=== PATIENT | female | born 1950 | race Caucasian/White ===

== ENCOUNTER → 2017-05-30 | Outpatient (CLI) | payer MEDICARE ==
[~2017-05-30] MED LIST: DEXL60CA PO; ESTR1PAT10 TD; LEVO50TA6 PO; LVT.025T PO; PANT40TA PO; PRAV10TA PO; PRV20T GT; SUCR1TAB36 PO
--- NOTE | 2017-05-31 12:35 | Diagnostic Imaging Report ---
INDICATION: Digital mammogram bilateral screening. This study was compared to prior exams of 03/25/16, 03/12/15 and 02/11/14. At this time there are no current complaints. The current study was also evaluated with a Computer Aided Detection (CAD) system. The 3D tomographic views also fail to show any evidence of malignancy. There are bilateral breast implants in place. The implants appear similar to the prior exams. There is no sign of extracapsular rupture of either implant. The fibroglandular tissue overlying the implants is heterogeneously dense. This does limit the sensitivity of this exam. When compared to the previous study there does not seem to have been any significant change. There is no primary or secondary sign of malignancy noted. The tomosynthesis images also failed to show any sign of malignancy. IMPRESSION: 1. There is no evidence of malignancy. 2. The implants appear stable when compared to the prior study. There is no sign of extracapsular rupture of either implant. ACR BI-RADS Category 1: Negative. Result letter will be mailed to the patient. Note: At least 10% of breast cancer is not imaged by mammography. Dictated by: Dictated on workstation # [id number]
== END ==
LOC: RAD 13:17
PROVIDERS: ATTEND Nurse Practitioner Family
DX: Z12.31 Encounter for screening mammogram for malignant neoplasm of breast (principal)
CPT/HCPCS: 77067

== ENCOUNTER → 2017-10-11 | Outpatient (CLI) | payer MEDICARE | LOC: CARD 10:49 | PROVIDERS: ATTEND Internal Medicine Cardiovascular Disease | DX: R55 Syncope and collapse (principal); E78.4 Other hyperlipidemia; R00.2 Palpitations | CPT/HCPCS: 93306 ==

== ENCOUNTER → 2018-04-14 | Outpatient (CLI) | payer MEDICARE | LOC: RAD 08:29 | PROVIDERS: ATTEND Nurse Practitioner Family | DX: Z12.31 Encounter for screening mammogram for malignant neoplasm of breast (principal) ==

== ENCOUNTER → 2018-06-02 | Outpatient (CLI) | payer MEDICARE ==
--- NOTE | 2018-06-02 12:50 | Diagnostic Imaging Report ---
INDICATION: Routine screening. COMPARISON: Comparison is made with prior mammograms from 05/30/2017 and 03/25/2016. TECHNIQUE: Bilateral 2D and 3D screening mammography was performed with computer-aided detection (CAD) system. FINDINGS: Scattered fibroglandular densities are identified. Bilateral breast implants are again noted. Implant contours appear to be fairly smooth. There is some calcification of the implant shells bilaterally. No definite findings to suggest extracapsular rupture are seen. The parenchymal pattern is stable. No mass or malignant appearing microcalcifications are seen. Axillae are unremarkable apart from a cardiac monitoring device in the left axilla. IMPRESSION: No mammographic features suspicious for malignancy are identified. ACR BI-RADS Category 2: Benign findings. Result letter will be mailed to the patient. Note: At least 10% of breast cancer is not imaged by mammography. Dictated by: Dictated on workstation # [id number]
== END ==
LOC: RAD 10:47
PROVIDERS: ATTEND Nurse Practitioner Family
DX: Z12.31 Encounter for screening mammogram for malignant neoplasm of breast (principal)
CPT/HCPCS: 77067

== ENCOUNTER → 2019-06-06 | Outpatient (CLI) | payer MEDICARE ==
--- NOTE | 2019-06-06 19:33 | Diagnostic Imaging Report ---
INDICATION: Routine screening. COMPARISON is made with prior mammograms from 06/02/2018 and 05/30/2017. 2D and 3D bilateral screening mammography was performed with CAD. Scattered fibroglandular densities are identified bilaterally. Bilateral breast implants are again noted. Calcifications along the implant shells is again seen. The overall parenchymal pattern is stable. No mass or malignant appearing microcalcifications are seen. Cardiac monitoring device in the left axilla is noted. IMPRESSION: BI-RADS category 2 No mammographic features suspicious for malignancy are identified. ACR BI-RADS Category 2: Benign findings. Result letter will be mailed to the patient. Note: At least 10% of breast cancer is not imaged by mammography. Dictated by: Dictated on workstation # [id number]
== END ==
LOC: RAD 10:05
PROVIDERS: ATTEND Family Medicine
DX: Z12.31 Encounter for screening mammogram for malignant neoplasm of breast (principal)
CPT/HCPCS: 77067

== ENCOUNTER 2019-12-26 05:52 | Outpatient (CLI) | payer MEDICARE ==
[~2019-12-26] VITALS: Ht 172 cm; Wt 72.7 kg
[2019-12-26] MEDS ORDERED: FLEC100T PO (10:32)
[2019-12-26] MEDS ORDERED: DILT120T3 PO (10:32)
[2019-12-26] MEDS ORDERED: LEVO50TA6 PO (10:32)
[2019-12-26] MEDS ORDERED: APIX5TAB PO (10:32)
== END 2019-12-26 10:37 | disposition home or self-care (01) ==
LOC: PREOP 05:52
PROVIDERS: ATTEND Surgery
DX: Z01.818 Encounter for other preprocedural examination (principal)

== ENCOUNTER 2020-04-08 05:45 | Outpatient (RCR) | payer MEDICARE ==
[~2020-04-08] VITALS: Ht 175.3 cm; Wt 74.5 kg
[~2020-04-08 05:45] MED LIST changes: +APIX5TAB PO; +DILT120T3 PO; +FLAX100031 PO; +FLEC100T PO
== END 2020-04-08 15:39 | disposition home or self-care (01) ==
LOC: PREOP 05:45
PROVIDERS: ATTEND Surgery
DX: Z01.818 Encounter for other preprocedural examination (principal); Z11.59 Encounter for screening for other viral diseases
CPT/HCPCS: 87635

== ENCOUNTER 2020-04-11 12:39 | Day surgery (SDC) | payer MEDICARE ==
[2020-04-11] VITALS (7 sets, daily range): BP systolic 125–160; BP diastolic 66–90
[~2020-04-11] VITALS: Ht 175.3 cm; Wt 74.5 kg
[~2020-04-11 12:39] MED LIST changes: +NS IV 500 ML 0 ML ONE
[2020-04-11] MEDS ORDERED: LACTATED RINGERS 1,000 ML IV ONE (12:47)
[2020-04-11] MEDS ORDERED: LACTATED RINGERS 1,000 ML IV STA (12:47)
--- OUTSIDE RECORDS SUMMARY | 2020-04-11 12:59 | XMS REPORT | Clinical Summary ---
Author Author [facility] Organization [facility] Address Unknown Phone Unavailable Care Team Providers Care Loft Patternmaker Name Role Phone Heidi Christy MD PCP Source Comments Some departments are not documenting in the electronic medical record. If you d o not see the information that you expected, contact Release of Information in [facility] [employer] Information Management department at [phone] for further assistan ce in locating additional records.[facility] Allergies Comments Active Allergy Reactions Severity Noted Date Ofloxacin UNKNOWN Low 10/18/2017 Medications End Date Status Medication Sig Dispensed Refills Start Date Active levothyroxine (SYNTHROID) Take 50 mcg 0 50 mcg tablet by mouth daily 30 minutes before breakfast. Active pravastatin (PRAVACHOL) Take 10 mg by 0 10 mg tablet mouth every 48 hours. Active apixaban (ELIQUIS) 5 mg Take 5 mg by 0 tablet mouth twice daily. Active KRILL OIL/OMEGA-3/DHA/EPA Take 500 mg 0 (FISH OIL WITH KRILL PO) by mouth daily. Active SACCHAROMYCES BOULARDII Take by 0 (PROBIOTIC (S.BOULARDII) mouth daily. PO) Active Flaxseed Oil 1,000 mg cap Take 1 0 capsule by mouth daily. Active flecainide (TAMBOCOR) 100 Take one 180 tablet 3 09/26/201 mg tablet tablet by 9 mouth twice daily. 03/28/2020 Discontinued (Patient's Alejandra ce) estradiol (ESTRACE) 0.01 Insert or 0 % (0.1 mg/g) vaginal Apply to cream vaginal area at bedtime daily. 03/28/2020 Discontinued (Patient's Alejandra ce) azelaic acid(+) (FINACEA) Apply 0 15 % gel topical gel topically to affected area twice daily. 03/28/2020 Discontinued (Per Provider) diltiazem CD (CARDIZEM Take one 30 capsule 11 CD) 120 mg capsule capsule by 9 mouth daily. Active Problems Problem Noted Date SVT (supraventricular tachycardia) 10/27/2017 Heart palpitations 10/18/2017 Overview: 09/2017 ambulatory cardiac monitoring: "multiple episodes PSVT (probably afib/futter) lasting up to approx 30 se conds with rates up to 174 bpm; isolated PVC's were seen: no VT; signif icant bradycardia" 10/11/17 Echo: LVEF 60-65%, grade I di astolic dysfunction, PASSP 25-30 mmHg 10/11/17 ETT Echo: "showed no evidence of exercise-induced ischemia; excellent exercise capacity; hypertensi ve response to exercise; multiple isolated PVDs; no VT Hyperlipidemia 10/18/2017 GERD (gastroesophageal reflux disease) 10/18/2017 Spinal stenosis of lumbar region 10/18/2017 Essential hypertension 10/18/2017 Hypothyroid 10/18/2017 Overview: treated with thyroid replacement therap y. TSH normal on 03/18/17 Encounters Care Team Description Date Type Specialty Lacho Johnson MD SVT; Palpitations (6 month follow up) 03/28/2020 Office Visit Cardiology Lacho Johnson MD Canceled (Office-Coordination of Patient Care) 03/28/2020 Hospital Cardiology Encounter 03/28/2020 Travel [place] Records Request (Dr. Chuy Franklin-cardiolo records) 03/27/2020 Documentation Cardiology 03/18/2020 Lacho Saunders MD 03/18/2020 Hospital Cardiology Encounter 02/18/2020 Travel Lacho Johnson MD 02/18/2020 Hospital Cardiology Encounter 01/16/2020 Travel Lacho Johnson MD 01/15/2020 Hospital Cardiology Encounter from Last 3 Months Family History Medical History Relation Name Comments Heart Disease Father Relation Name Status Comments Father Mother Social History Date Tobacco Use Types Packs/Day Years Used Never Smoker Smokeless Tobacco: Never Used Drinks/Week oz/Week Comments Alcohol Use Occasionally a glass of wine Yes Sex Assigned at Date Recorded Not on file Industry Job Start Date Occupation Not on file Not on file Not on file Travel End Travel History Travel Start No recent travel history available. Date Recorded COVID-19 Exposure Response 03/28/2020 12:06 PM CDT In the last month, have you been in contact with No / Unsure someone who was confirmed or suspected to have Coronavirus / COVID-19? Last Filed Vital Signs Reading Time Taken Comments Vital Sign 152/90 03/28/2020 1:14 PM CDT Blood Pressure 60 03/28/2020 1:14 PM CDT Pulse - - Temperature - - Respiratory Rate - - Oxygen Saturation - - Inhaled Oxygen Concentration 73.3 kg (161 lb 8.6 oz) 03/28/2020 1:14 PM CDT Weight 172.7 cm (5' 8") 03/28/2020 1:14 PM CDT Height 24.56 03/28/2020 1:14 PM CDT Body Mass Index Plan of Treatment Health Maintenance Due Date Last Done Comments MEDICARE ANNUAL WELLNESS 1950 VISIT DTAP/TDAP VACCINES (1 - 1968 Tdap) HEPATITIS C SCREENING 1968 PHYSICAL (COMPREHENSIVE) 1968 EXAM BREAST CANCER SCREENING 1990 COLORECTAL CANCER 2000 SCREENING SHINGLES RECOMBINANT 2000 VACCINE (1 of 2) OSTEOPOROSIS 12/23/2015 SCREENING/MONITORING PNEUMONIA (PPSV23) 12/23/2015 VACCINE (1 of 1 - PPSV23) INFLUENZA VACCINE 07/17/2020 08/17/2017 Implants Device Identifier Shelf Expiration Date Model / Serial / L ot Implanted Type Area Manufactur er Loop Recorder Loop Recorder Procedures Comments Procedure Name Priority Date/Time Associated Diag nosis ECG-SCAN 03/28/2020 12:00 AM CDT DEVICE EVALUATION - Routine 03/18/2020 SVT (supra ventricular REMOTE ILR 6:57 AM CDT tachycardia) (HCC) Heart palpitations DEVICE EVALUATION - Routine 02/19/2020 SVT (supra ventricular REMOTE ILR 2:52 PM CDT tachycardia) (HCC) Heart palpitations DEVICE EVALUATION - Routine 01/16/2020 SVT (supra ventricular REMOTE ILR 2:04 PM CDT tachycardia) (HCC) Heart palpitations from Last 3 Months Results * ECG-SCAN (03/28/2020 12:00 AM CDT) Narrative Performed At This result has an attachment that is n ot available. Ordered by an unspecified provider. * DEVICE EVALUATION - REMOTE ILR (03/18/2020 6:57 AM CDT) Generator [employer] OTHER OUTSIDE [employer] Intern LAB Generator Model LNQ11 OTHER OUTSIDE # LAB Generator [id number] OTHER OUTSIDE Serial # LAB Generator 10/27/17 OTHER OUTSIDE Implnat Date LAB MAURICE/EOL per transmitter OTHER OUTSIDE Indicator LAB Device Type ILR OTHER OUTSIDE LAB Wireless Yes OTHER OUTSIDE Generator LAB Device Dr.Martin Johnson OTHER OUTSIDE Implanted By LAB Device [employer] OTHER OUTSIDE [place] LAB Transmitter Compatible Known Diagnosed Yes OTHER OUTSIDE AFib LAB On Yes OTHER OUTSIDE Anticoagulation LAB Remote Monitor [id number] OTHER OUTSIDE Serial# LAB ILR Symptom 4 7.5 mins each OTHER OUTSIDE Duration LAB ILR Tachy Rate 140 OTHER OUTSIDE LAB ILR Tachy 16 OTHER OUTSIDE Duration LAB ILR Pause 3 OTHER OUTSIDE Duration LAB ILR Beltran Rate 30 OTHER OUTSIDE LAB ILR Beltran 4 OTHER OUTSIDE Duration LAB ILR AT Events 0 OTHER OUTSIDE Since Last LAB Interrogation ILR AT Lifetime 37 OTHER OUTSIDE Events as of LAB ILR AF Rate AF only OTHER OUTSIDE LAB ILR AF Duration all episodes OTHER OUTSIDE LAB ILR Current 03/18/2020 to 04/18/2020 OTHER OUTSIDE Monitoring LAB Period ILR Date of 03/18/2020 OTHER OUTSIDE Last Daily LAB Connection ILR Battery OK OTHER OUTSIDE Status LAB ILR Symptom 0 OTHER OUTSIDE Events Since LAB Last Interrogation ILR Symptom 26 OTHER OUTSIDE Lifetime Events LAB as of ILR Tachy 0 OTHER OUTSIDE Events Since LAB Last Interrogation ILR Tachy 34 OTHER OUTSIDE Lifetime Events LAB as of ILR Pause 0 OTHER OUTSIDE Events Since LAB Last Interrogation ILR Pause 0 OTHER OUTSIDE Lifetime Events LAB as of ILR Beltran 0 OTHER OUTSIDE Events Since LAB Last Interrogation ILR Beltran 0 OTHER OUTSIDE Lifetime Events LAB as of ILR AF Events 0 OTHER OUTSIDE Since Last LAB Interrogation ILR AF Lifetime 0 OTHER OUTSIDE Events as of LAB ILR Percent 0.0% OTHER OUTSIDE Time in AT/AF LAB Events Since Last Interrogation ILR Percent 0.0% OTHER OUTSIDE Time in AT/AF LAB Lifetime of Events as of ILR Presenting 03/18/2020 @ 00:04:50 shows SB OTHER OU TSIDE ECG Strip in the 50's LAB ILR Lifetime 03/18/2020 OTHER OUTSIDE Events as of LAB Datetion Specimen Narrative Performed At OTHER OUTSIDE LAB Eliquis [03/18/2020 6:59:32 AM - JONATHAN HANCOCK] Presenting EGM on 03/18/2020 @ 00:04:50 s kassi SB in the 50's. Summary report received and reviewed. N o new event to report. Please see scanned data sheets for furt her review. Results routed to Dr. Johnson for signatu re and review. Performing Organization Address City/State/Zipcode Ph one Number OTHER OUTSIDE LAB * DEVICE EVALUATION - REMOTE ILR (02/19/2020 2:52 PM CDT) Generator [employer] OTHER OUTSIDE [employer] Intern LAB Generator Model LNQ11 OTHER OUTSIDE # LAB Generator [id number] OTHER OUTSIDE Serial # LAB Generator 10/27/17 OTHER OUTSIDE Implnat Date LAB MAURICE/EOL per transmitter OTHER OUTSIDE Indicator LAB Device Type ILR OTHER OUTSIDE LAB Wireless Yes OTHER OUTSIDE Generator LAB Device Dr.Martin Johnson OTHER OUTSIDE Implanted By LAB Device [employer] OTHER OUTSIDE [place] LAB Transmitter Compatible Known Diagnosed Yes OTHER OUTSIDE AFib LAB On Yes OTHER OUTSIDE Anticoagulation LAB Remote Monitor [id number] OTHER OUTSIDE Serial# LAB ILR Symptom 4 7.5 mins each OTHER OUTSIDE Duration LAB ILR Tachy Rate 140 OTHER OUTSIDE LAB ILR Tachy 16 OTHER OUTSIDE Duration LAB ILR Pause 3 OTHER OUTSIDE Duration LAB ILR Beltran Rate 30 OTHER OUTSIDE LAB ILR Beltran 4 OTHER OUTSIDE Duration LAB ILR AT Events 0 OTHER OUTSIDE Since Last LAB Interrogation ILR AT Lifetime 37 OTHER OUTSIDE Events as of LAB ILR AF Rate AF only OTHER OUTSIDE LAB ILR AF Duration all episodes OTHER OUTSIDE LAB ILR Current 02/16/2020 to 03/18/2020 OTHER OUTSIDE Monitoring LAB Period ILR Date of 02/19/2020 OTHER OUTSIDE Last Daily LAB Connection ILR Battery OK OTHER OUTSIDE Status LAB ILR Symptom 0 OTHER OUTSIDE Events Since LAB Last Interrogation ILR Symptom 26 OTHER OUTSIDE Lifetime Events LAB as of ILR Tachy 0 OTHER OUTSIDE Events Since LAB Last Interrogation ILR Tachy 34 OTHER OUTSIDE Lifetime Events LAB as of ILR Pause 0 OTHER OUTSIDE Events Since LAB Last Interrogation ILR Pause 0 OTHER OUTSIDE Lifetime Events LAB as of ILR Beltran 0 OTHER OUTSIDE Events Since LAB Last Interrogation ILR Beltran 0 OTHER OUTSIDE Lifetime Events LAB as of ILR AF Events 0 OTHER OUTSIDE Since Last LAB Interrogation ILR AF Lifetime 0 OTHER OUTSIDE Events as of LAB ILR Percent 0.0% OTHER OUTSIDE Time in AT/AF LAB Events Since Last Interrogation ILR Percent 0.0% OTHER OUTSIDE Time in AT/AF LAB Lifetime of Events as of ILR Presenting 02/19/2020 @ 00:04:50 shows OTHER OUTSI DE ECG Strip sinus arrhythmia with V rates LAB between 50's-60's ILR Lifetime 02/19/2020 OTHER OUTSIDE Events as of LAB Datetion Specimen Narrative Performed At OTHER OUTSIDE LAB Eliquis [02/19/2020 2:55:49 PM - HANCOCKJONATHAN] Presenting EGM on 02/19/2020 @ 00:04:50 s hows sinus arrhythmia with V rates between 50's-60's. Summary report received and reviewed. N o new event to report. Please see scanned data sheets for deet her review. Results routed to Dr. Johnson for signatu re and review. Performing Organization Address City/State/Zipcode Ph one Number OTHER OUTSIDE LAB * DEVICE EVALUATION - REMOTE ILR (01/16/2020 2:04 PM CDT) Generator [employer] OTHER OUTSIDE Consult[employer] Intern LAB Generator Model LNQ11 OTHER OUTSIDE # LAB Generator [id number] OTHER OUTSIDE Serial # LAB Generator 10/27/17 OTHER OUTSIDE Implnat Date LAB MAURICE/EOL per transmitter OTHER OUTSIDE Indicator LAB Device Type ILR OTHER OUTSIDE LAB Wireless Yes OTHER OUTSIDE Generator LAB Device Dr.Martin Johnson OTHER OUTSIDE Implanted By LAB Device [employer] OTHER OUTSIDE [place] LAB Transmitter Compatible Known Diagnosed Yes OTHER OUTSIDE AFib LAB On Yes OTHER OUTSIDE Anticoagulation LAB Remote Monitor [id number] OTHER OUTSIDE Serial# LAB ILR Symptom 4 7.5 mins each OTHER OUTSIDE Duration LAB ILR Tachy Rate 140 OTHER OUTSIDE LAB ILR Tachy 16 OTHER OUTSIDE Duration LAB ILR Pause 3 OTHER OUTSIDE Duration LAB ILR Beltran Rate 30 OTHER OUTSIDE LAB ILR Beltran 4 OTHER OUTSIDE Duration LAB ILR AT Events 0 OTHER OUTSIDE Since Last LAB Interrogation ILR AT Lifetime 37 OTHER OUTSIDE Events as of LAB ILR AF Rate AF only OTHER OUTSIDE LAB ILR AF Duration all episodes OTHER OUTSIDE LAB ILR Current 01/15/20-02/16/20 OTHER OUTSIDE Monitoring LAB Period ILR Date of 01/16/20 OTHER OUTSIDE Last Daily LAB Connection ILR Battery ok OTHER OUTSIDE Status LAB ILR Symptom 0 OTHER OUTSIDE Events Since LAB Last Interrogation ILR Symptom 26 OTHER OUTSIDE Lifetime Events LAB as of ILR Tachy 0 OTHER OUTSIDE Events Since LAB Last Interrogation ILR Tachy 34 OTHER OUTSIDE Lifetime Events LAB as of ILR Pause 0 OTHER OUTSIDE Events Since LAB Last Interrogation ILR Pause 0 OTHER OUTSIDE Lifetime Events LAB as of ILR Beltran 0 OTHER OUTSIDE Events Since LAB Last Interrogation ILR Beltran 0 OTHER OUTSIDE Lifetime Events LAB as of ILR AF Events 0 OTHER OUTSIDE Since Last LAB Interrogation ILR AF Lifetime 0 OTHER OUTSIDE Events as of LAB ILR Presenting 01/16/20 @ 0004 SR 60 bpm OTHER OUTSIDE ECG Strip LAB ILR Lifetime 01/16/20 OTHER OUTSIDE Events as of LAB Datetion Specimen Narrative Performed At OTHER OUTSIDE LAB Eliquis [01/16/2020 2:05:29 PM - ANU JOAQUIN] Presenting EGM: 01/16/20 @ 0004 SR 60 bpm . Summary report received and reviewed, no new events to report, will continue to monitor. Results routed to Dr. Johnson for signatu re and review. __ Performing Organization Address City/State/Zipcode Ph one Number OTHER OUTSIDE LAB from Last 3 Months Insurance Type Payer Benefit Subscriber ID Effective Phone Address Plan / Dates Group Medicare MEDICARE MEDICARE xxxxxxxxxxx 2015-P PART A AND resent B Medicare BCBS JAMIE BCBS xxxxxxxxxxxx 2017-P SUPPLEMENT resent [phone] Advance Directives Patient Soda Clerk Explanation Type Date Recorded Advance 07/23/2014 9:47 AM Directive/DPOA
--- OUTSIDE RECORDS SUMMARY | 2020-04-11 12:59 | XMS REPORT | Encounter Summary ---
Author Author [facility] Organization [facility] Address Unknown Phone Unavailable Care Team Providers Care Cnc Field Service Engineer Name Role Phone Heidi Christy MD PCP Encounter Details Care Team Description Date Type Department 03/28/2020 Travel Social History Date Tobacco Use Types Packs/Day [...] or suspected to have Coronavirus / COVID-19? documented as of this encounter Plan of Treatment Not on filedocumented as of this encounter Visit Diagnoses Not on filedocumented in this encounter
--- OUTSIDE RECORDS SUMMARY | 2020-04-11 12:59 | XMS REPORT | Encounter Summary ---
Author Author [facility] Organization [facility] Address Unknown Phone Unavailable Care Team Providers Care Stencil Printer Name Role Phone Heidi Christy MD PCP Encounter Details Care Team Description Date Type Department Lacho Johnson MD [address] [facility] [place] [address] [phone] 03/18/2020 [facility] cine Encounter Remote Device Check [phone] Social History Date Tobacco Use Types Packs/Day [...] history available. Date Recorded COVID-19 Exposure Response 03/18/2020 6:56 AM CDT In the last month, have you been in contact with Matilde banner to assess someone who was confirmed or suspected to have Coronavirus / COVID-19? documented as of this encounter Medications at Time of Discharge Start Date End Date Medication Sig Dispensed Refills apixaban (ELIQUIS) 5 mg Take 5 mg by 0 tablet mouth twice daily. Flaxseed Oil 1,000 mg cap Take 1 0 capsule by mouth daily. 09/26/2019 flecainide (TAMBOCOR) 100 Take one 180 tablet 3 mg tablet tablet by mouth twice daily. KRILL OIL/OMEGA-3/DHA/EPA Take 500 mg 0 (FISH OIL WITH KRILL PO) by mouth daily. levothyroxine (SYNTHROID) Take 50 mcg 0 50 mcg tablet by mouth daily 30 minutes before breakfast. pravastatin (PRAVACHOL) Take 10 mg by 0 10 mg tablet mouth every 48 hours. SACCHAROMYCES BOULARDII Take by 0 (PROBIOTIC (S.BOULARDII) mouth daily. PO) 03/28/2020 azelaic acid(+) (FINACEA) Apply 0 15 % gel topical gel topically to affected area twice daily. 09/26/2019 03/28/2020 diltiazem CD (CARDIZEM Take one 30 capsule 11 CD) 120 mg capsule capsule by mouth daily. 03/28/2020 estradiol (ESTRACE) 0.01 Insert or 0 % (0.1 mg/g) vaginal Apply to cream vaginal area at bedtime daily. documented as of this encounter Plan of Treatment Not on filedocumented as of this encounter Procedures Comments Procedure Name Priority Date/Time Associated Diag nosis DEVICE EVALUATION - Routine 03/18/2020 SVT (supra ventricular REMOTE ILR 6:57 AM CDT tachycardia) (HCC) Heart palpitations documented in this encounter Results * DEVICE EVALUATION - REMOTE ILR (03/18/2020 6:57 AM CDT) [facility] Signature Generator [place] OTHER OUTSIDE Wash Tub Machine Operator LAB Generator Model LNQ11 OTHER OUTSIDE # LAB Generator [id number] OTHER OUTSIDE Serial # LAB Generator 10/27/17 OTHER OUTSIDE Implnat Date LAB MARUICE/EOL per transmitter OTHER OUTSIDE Indicator LAB Device Type ILR OTHER OUTSIDE LAB Wireless Yes OTHER OUTSIDE Generator LAB Device Dr.Martin Johnson OTHER OUTSIDE Implanted By LAB Device [employer] OTHER OUTSIDE [place] LAB Transmitter Compatible Known Diagnosed Yes OTHER OUTSIDE AFib LAB On Yes OTHER OUTSIDE Anticoagulation LAB Remote Monitor [id number] OTHER OUTSIDE Serial# LAB ILR Symptom 4 [...] Presenting EGM on 03/18/2020 @ 00:04:50 s hows SB in the . Summary report received and reviewed. N o new event to report. Please see scanned data sheets for marcel moore review. Results routed to Dr. Johnson for signatu re and review. Performing Organization Address City/State/Zipcode Ph one Number OTHER OUTSIDE LAB documented in this encounter Visit Diagnoses Diagnosis SVT (supraventricular tachycardia) (HCC ) Other specified cardiac dysrhythmias Heart palpitations Palpitations documented in this encounter
--- OUTSIDE RECORDS SUMMARY | 2020-04-11 12:59 | XMS REPORT | Encounter Summary ---
Author Author [facility] Organization [facility] Address Unknown Phone Unavailable Care Team Providers Care Heel Painter Name Role Phone Heidi Christy MD PCP Encounter Details Care Team Description Date Type Department Lacho Johnson MD [address] [facility] [place] [address] [phone] Canceled (Office-Coordination of Patient Care) 03/28/2020 [facility] [address] [place] [address] Social History Date Tobacco Use Types Packs/Day [...] by 0 (PROBIOTIC (S.BOULARDII) mouth daily. PO) documented as of this encounter Plan of Treatment Order Schedule Name Type Priority Associated Diag noses 1 Occurrences starting 03/28/2020 until 03/28/2020 DEVICE EVALUATION - ILR Heart Rhythm Routine SVT (s upraventricular Management tachycardia) (HCC) Paroxysmal atrial fibrillation (HCC) documented as of this encounter Visit Diagnoses Diagnosis SVT (supraventricular tachycardia) (HCC ) Other specified cardiac dysrhythmias Paroxysmal atrial fibrillation (HCC) Atrial fibrillation documented in this encounter
--- OUTSIDE RECORDS SUMMARY | 2020-04-11 12:59 | XMS REPORT | Encounter Summary ---
Author Author [facility] Organization [facility] Address Unknown Phone Unavailable Care Team Providers Care Training And Development Specialist Name Role Phone Heidi Christy MD PCP Reason for Visit * Reason Comments SVT Palpitations 6 month follow up * Consult, Test & Treat (Routine) Referred By Contact Referred To Contact Status Reason Specialty Diagnoses / Procedures Lacho Johnson MD [address] [address] New Request Procedures REQUEST FOR CARDIOLOGY APPOINTMENT Encounter Details Care Team Description Date Type Department Lacho Johnson MD 4000 [facility] [place], [place] [id number] SVT; Palpitations (6 month follow up) 03/28/2020 Office Visit [facility] [id number] [place] [address] [address] [place], [place] [address] Social History Date Tobacco Use Types Packs/Day [...] / COVID-19? documented as of this encounter Last Filed Vital Signs Reading Time Taken [...] 03/28/2020 1:14 PM CDT Body Mass Index documented in this encounter Patient Instructions * Patient Instructions* Alexander Damian, PANTERA - 03/28/2020 1:00 PM CDT Please schedule an appointment with Dr. Johnson in 6 months. To schedule an appointment call [phone]. STOP taking Diltiazem. Please See Dr. Christy if your feeling of dragginess does not improve. Please follow up with Dr. Franklin for results of stress test and to follow up reg arding A-Fib and anticoagulation. --Check your BP (Blood Pressure) daily and you may vary the time of day you chec k it. Monitor your blood pressure regularly Consider obtaining an automatic home blood pressure cuff if you don't already oswald ve one. Try to follow a low salt diet. If you smoke, make an honest effort to quit. Exercise helps with your blood pressure. Try to get at least 30 minutes of mode rate intensity exercise at least 4 days a week. Your desired BP is with the top # less than 135 and bottom # less than 85. Call our office or your PCP if your blood pressure remains at or above the danita ed measurement consistently. If you have questions about your blood pressure readings, please contact the off ice. -- Since you are on anticoagulation, monitor for any signs or symptoms of bleedi ng, including blood in the stool or urine, etc and to contact your Primary Care Physician if any occurs. In order to provide you the best care possible we ask that you follow up as shantel cummings: For non-urgent questions please contact us through your [employer] account. For all medication refills please contact your pharmacy or send a request candi Ortiz. For all questions that may need to be addressed urgently please call the nursing triage voicemail at [phone] Tuesday - Tuesday 8-5 only. Please leave a detai led message with your name, date of , and reason for your call. Please allow ~ 10 business days for the results of any testing to be reviewed. Anamaria torre call our office if you have not heard from a nurse within this time frame. documented in this encounter Progress Notes * Lacho Johnson MD - 03/28/2020 1:00 PM CDT Date of Service: 03/28/2020 Cherelle Lucio is a 69 y.o. female. HPI I had the pleasure of seeing your patient Cherelle Lucio in the [facility] as a part of the [facility] [place] office today for follow up regarding her Palpitations and Lightheadedness/Near Syncope and he r Medtronic LinQ Implantable Monitor device. She is typically followed and was referred by my friend and colleague, Dr. Willy keen, her primary title clerk automobile. Ms. Lucio is an exceptionally pleasant 69 y.o. Female. In the past, she has been accompanied by her equally pleasant spouse, but not today. Of Note--her is an estate attorney. The past medical history and data below has been reviewed and updated by me wi th new events for today's visit. Her PMHx briefly includes:Near Syncope; ELR documenting SVT Likely Atrial Tachycardia, PVCs and PACs (per Dr. Franklin); Increasing PVCs from exercise duri ng Exercise Stress Echocardiogram; Medtronic Reveal LinQ Implantable Looping Mon itor (10/27/17); Normal LV Function with EF 60-65% by Echo (10/11/17); Negative E xercise Stress Echocardiogram (10/13/17); Hypothyroidism; Hyperlipidemia; GERD Shehas a [id number] score of 2:Female; Age DETAILED UPDATED PMHx: -- 08/2017: Per my phone conversation with Dr. Franklin,She is a 66-year-old female that he states has had some atrial fibrillation,? SVT, PVCs, and sympto ms of near syncope not necessarily correlating with her arrhythmias. Herarrhythmias were detected by Ziopatch monitoring. She apparently did not have symptoms of near syncope during that 2 week period. For her documented atrial fibrillation he initiated her on a beta-celestine and El iquis. She has undergone a stress echocardiogram with Dr. Franklin apparently which was n egative. He did note that she had some PVCs during stress testing. He did no t have the data available at the time to say whether they were occurring preexer cise, during exercise, or post exercise but he did recall that she did NOT have any VT. With normal LVEF and NO VT,he did not feel that pursuing a cardiac c ath was warranted at least at this time. Based on all the above, he referred her for EP consultation-->occured in 10/2017. He also considered implantation of a [employer] LinQ Implantable Monitor device. However she has had bilateral breast implantation. He had concerns regarding u tilizing the [employer] implantable monitor since it has a long antenna. He sta radha he has been implanting themalong the lateral edge of the sternum. He has asked us to evaluate this issue for possible ILR implantation and potenti ally pursue implantation onthe day of her office visit. -- 09/14/17-09/28/17: ZioPatch by Dr. Franklin: 5 pt triggered events, 2 diary e ntry events, predominant NSR, Avg 71, Min 50 bpm, Max SR 143 bpm, diary entry in cluded skipped/irregly beats fluttering/racing which correlated with NSR and a r are PVC. However, 5 pt triggered events without symptoms reported. One episode w ith 8 beats of narrow complex tachycardia with P wave prior to QRS, second episo de of 13 beats of the same, and third episode of 5 beats and two episodes of NSR , CL of NCT slightly variable but approximately 400-440 ms. Also, a 35 sec episo de of SVT and 16 sec episode with P waves before QRS or long-RP and 1 episode of EAR/EAT with long SD interval at 85-116 bpm. No Sxs correlating with longer epi sodes. No symptoms of lightheadedness, near syncope during two week monitoring p eriod. Rare PAC and PVC present and ASxic. -- 10/27/17: Initial EP Consultation:Pt with near syncope/lightheadedness, AT ACH/EAR as well as an ELR documenting SVT, PVCs and PACs. -- 10/27/17:We proceeded withMedtronic Reveal LinQ Implantable Looping Alondra tor implantationwith continued Beta-celestine and anticoagulation -- 12/15/17:Flecainide 50 mg BID initiatedfor LinQPatient activated sympto m events of palpitations and ATACH -- 12/19/17: Pt complained of fatigue and was instructed to decrease Toprol from 25 mg daily to 12.5 mg daily -- 01/26/18: OV (Dr. Johnson): We stopped Toprol given her symptoms of fatigue an d low BP and she was to assess her response. Continued Flecainide. -- 11/20/18: OV (Dr. Johnson): Patient was to visit with Dr. Franklin regarding anti coagulation. -- 03/05/19: Remote transmission of atrial tachycardia, patient considered swit manju to Multaq and further consider an ablation-=-> prompting OV. -- 03/29/19: OV (Dr. Johnson): Discussed options including Ablation, changing Flec ainide to Multaq, etc. Patient did NOT wish to make any changesremained on F lecainide. Also assumed management of remote device monitoring. Patient was to keep strict log of activities. -- 09/26/19: OV (Dr. Johnson): Patient reported occasionally feeling a skipped be at/flutter. Given documented episodes of 140-150 bpm on monitor, initiated Dilti azem 120 mg/d. Based on documented tachycardic events of ILR and her report of n ot being very active, Diltiazem initiated as those events may have been atrial t achycardia. However, most episodes of ATACH have had sudden onset and terminatio n. She STATES she has had no recurrent palpitations or tachypalpitations. She has b een taking the Diltiazem and Flecainide. She says she has been feeling "down a n otch". She says she feels like she is "draggy". She says she has not been checking her blood pressure at home. She feels as though her "feet are darker". She says next month she is having her thyroid levels reassessed. Her PMD follows her lipids. She denies any bleeding issues-blood in the urine, blood in the stool, toleratin g anticoagulation without obvious issue. She denies any chest discomfort, shortness of breath, palpitations, lightheadedn ess, near syncope or syncope, PND or orthopnea. FHx, SHx and ROS documented and I have reviewed, with some pertinent features to include: +FHx of premature CAD. She is a Non-Smoker. Most pertinent ROS is in cluded/discussed throughout the note, e.g. HPI and A/P. ASSESSMENT AND PLAN: --Documented Narrow Complex Long RP Tachycardia via ILR--Sinus Tach Versus A. tach -- Near Syncope--without recent recurrence -- Atrial Tachycardia and Ectopic Atrial Rhythm -- ELR documenting Atrial Tachycardia, PVCs and PACs -- Paroxysmal Atrial Fibrillation-per report by Dr. Franklin -- Anticoagulation -- [employer] Reveal LinQ Implantable Looping Monitor (10/27/17) -- Normal LV Function with EF 60-65% by Echo (10/11/17) -- Negative Exercise Stress Echocardiogram (10/13/17) -- Hypothyroidism-normal TFTs (09/2017)on Synthroid -- Hyperlipidemia -- GERD Ms. Lucio is doing exceptionally well from the arrhythmia standpoint. She has had no recurrent atrial arrhythmias. She has remained on flecainide and dil tiazem. As you may recall we initiated the diltiazem since at her last office visit her device documented some tachycardic events in the 150 to 160 bpm range. There wa s no sudden onset or termination. I was suspicious more for a sinus tachycardia as opposed to an atrial tachycardia since her prior episodes of atrial tachycar damaris have had a sudden onset and termination. However she felt strongly that she had not been active enough to create a heart rate of 150 to 160 bpm. Therefore in the event that these were episodes of atri al tachycardia we initiated diltiazem in addition to the flecainide to suppress any recurrent events. Today on diltiazem she states that although she feels it has helped she still fe els a little "draggy". I informed her that I am not convinced that is the dilti azem causing it since she does not have significant bradycardia arrhythmias. Ho arvin given the indication for initiation of the diltiazem as described above I thought it was reasonable to stop the diltiazem and see how she did. We discussed if her symptoms of feeling draggy did not improve then she needed t o follow-up with her PMD for another etiology, i.e. check her thyroid, etc. If her symptoms did improve then we know that this is a potential issue with dil tiazem for her and if she had recurrent arrhythmias we would consider increasing her flecainide or if necessary reinitiating the diltiazem. Since she had signi ficant issues with metoprolol that would not be an option in the future. She is on anticoagulation for a history of paroxysmal atrial fibrillation. I do not have any documentation of that. I have documentation of her atrial tachycard ia only. However Dr. Franklin per history has reported her atial fibrillation in t he past. I have asked her to revisit with him to confirm that she has had atrial fibrillation in particular regarding anticoagulation. Since over the last year at least that I have been following her device, she has had no documented AFIB. If he is unsure regarding prior AFIB, or if there is a question, then I would err on the side of continued anticoagulation at this time. I asked her to follow-up with Dr. Franklin for stress imaging. We discussed the risk of being on Flecainide if she has or develops a cardiomyop athy, LV dysfunction, or obstructive CAD and/or prior SD. That is why we recomm end annual to every few years stress imaging. If any of those develop, then of course, we would discontinue Flecainide immediately. Her ILR is still functioning well. PLAN: -- We will stop Diltiazem. -- If "dragginess" does not improve off Diltiazem, she will visit with PMD. -- She will revisit regarding atrial fibrillation and anticoagulation with Dr. Malina roach. -- She will discuss a stress test with Dr. Franklin. -- I have asked her to Check her BP (Blood Pressure) daily and vary the time of day she checks it. -- We discussed that exercise helps with her blood pressure and she should try t o get at least 30 minutes of moderate intensity exercise at least 4 days a week. -- We discussed that her desired BP is less than 135 and less than 85. -- Since she is on anticoagulation, I have asked her to monitor for any signs or symptoms of bleeding, including blood in the stool or urine, etc and to contact her PMD if any occurs. Ms. Lucio was educated regarding plan of care. She was instructed to call o ur office with any questions or concerns, as well as to notify us of any new or worsening symptoms. She verbalized understanding. I appreciate the opportunity to participate in the care of your patient. Please do not hesitate to contact me directly if you have any questions or furth er insights into her care. I have scheduled her follow-up with me in 6 month(s) . Vitals: 03/28/20 1314 Weight: 73.3 kg (161 lb 8.6 oz) Height: 1.727 m (5' 8") PainSc: Zero Body mass index is 24.56 kg/m. Past Medical History Patient Active Problem List Diagnosis Date Noted SVT (supraventricular tachycardia) (HCC) 10/27/2017 Heart palpitations 10/18/201709/2017 ambulatory cardiac monitoring: "multiple episodes PSVT (probably afib /futter) lasting up to approx 30 seconds with rates up to 174 bpm; isolated PVC's were seen: no VT; significant bradycardia" 10/11/17 Echo: LVEF 60-65%, grade I diastolic dysfunction, PASSP 25-30 mmHg 10/11/17 ETT Echo: "showed no evidence of exercise-induced ischemia; excellent exercise capacity; hypertensive response to exercise; multiple isolated PVDs; no VT Hyperlipidemia 10/18/2017 GERD (gastroesophageal reflux disease) 10/18/2017 Spinal stenosis of lumbar region 10/18/2017 Essential hypertension 10/18/2017 Hypothyroid 10/18/2017 treated with thyroid replacement therapy. TSH normal on 03/18/17 Review of Systems Constitution: Positive for malaise/fatigue. HENT: Negative. Eyes: Negative. Cardiovascular: Negative. Respiratory: Negative. Endocrine: Negative. Hematologic/Lymphatic: Negative. Skin: Positive for color change. Musculoskeletal: Negative. Gastrointestinal: Negative. Genitourinary: Negative. Neurological: Negative. Psychiatric/Behavioral: Negative. Allergic/Immunologic: Negative. Physical Exam Constitutional: She is in no acute distress, resting comfortably. Skin/Integument: Warm and dry. Eyes: PERRL, sclera are non-icteric and no xanthelasmas noted. ENT: Hearing is intact, Oropharynx is clear and moist. Heme/Lym/Immun: Supple neck, without thyromegaly. Respiratory-Pulmonary/Chest: Effort normal and breath sounds normal. No respira tory distress or accessory muscle use. No obvious tracheal deviation. Clear to auscultation bilaterally. Cardiovascular: No evidence of increased jugular venous pressure, carotids are 2+/4+ equal bilaterally, without obvious bruit. Regular rhythm, S1, S2. I do n ot appreciate any significant murmur today. No heaves, thrills or rubs. Musc/Skeletal-Extremities: Without significant peripheral edema. With what appe ars to be full ROM. PT pulses 2+/4+ Device Site: Is in her anterior chest region and well-healed. Neuro: Patient is alert and oriented to person, place, and time. Psych: Patient does not appear anxious, she appears appropriate, with normal no n-pressured speech and what appears to be appropriate judgement Cardiovascular Studies ECG today documents sinus rhythm at 60 bpm with IVCD, and mild nonspecific ST-T changes diffusely. Hept[employer] Reveal LinQ Implantable Looping Monitor Full device check performed wi reprogramming which I have extensively reviewed. Changes, if done, as discuss ed below and is detailed in other dictation/note. Device check demonstrates no recurrent symptom activated, auto detected tachycardia, or bradycardia arrhythmi c events since August 2019. Problems Addressed Today No diagnosis found. Current Medications (including today's revisions) apixaban (ELIQUIS) 5 mg tablet Take 5 mg by mouth twice daily. diltiazem CD (CARDIZEM CD) 120 mg capsule Take one capsule by mouth daily. Flaxseed Oil 1,000 mg cap Take 1 capsule by mouth daily. flecainide (TAMBOCOR) 100 mg tablet Take one tablet by mouth twice daily. KRILL OIL/OMEGA-3/DHA/EPA (FISH OIL WITH KRILL PO) Take 500 mg by mouth mireille y. levothyroxine (SYNTHROID) 50 mcg tablet Take 50 mcg by mouth daily 30 minute s before breakfast. pravastatin (PRAVACHOL) 10 mg tablet Take 10 mg by mouth every 48 hours. SACCHAROMYCES BOULARDII (PROBIOTIC (S.BOULARDII) PO) Take by mouth daily. documented in this encounter Miscellaneous Notes * Addendum Note - John Espana MA - 03/28/2020 1:00 PM CDT Addended by: JOHN ESPANA on: 03/28/2020 02:58 PM Modules accepted: Orders documented in this encounter Plan of Treatment Order Schedule Name Type Priority Associated Diag noses Expected: 09/27/2020, Expires: 1 DEVICE EVALUATION - ILR Heart Rhythm Routine SVT (s upraventricular Management tachycardia) ([facility]) Expected: 03/28/2020, Expires: 1 DEVICE EVALUATION - Heart Rhythm Routine SVT (supra ventricular REMOTE ILR Management tachycardia) ([facility]) Ordered: 03/28/2020 ECG 12-LEAD ECG Routine SVT (supraventr icular tachycardia) ([facility]) documented as of this encounter Procedures Comments Procedure Name Priority Date/Time Associated Diag nosis ECG-SCAN 03/28/2020 12:00 AM CDT documented in this encounter Results * ECG-SCAN (03/28/2020 12:00 AM CDT) Narrative Performed At This result has an attachment that is n ot available. Ordered by an unspecified provider. documented in this encounter Visit Diagnoses Diagnosis SVT (supraventricular tachycardia) ([facility] ) Other specified cardiac dysrhythmias documented in this encounter
--- OUTSIDE RECORDS SUMMARY | 2020-04-11 12:59 | XMS REPORT | Encounter Summary ---
Author Author [facility] Organization [facility] Address Unknown Phone Unavailable Care Team Providers Care [employer] Principal Name Role Phone Heidi Christy MD PCP Encounter Details Care Team Description Date Type Department 03/18/2020 Travel Social History Date Tobacco Use Types [...] have you been in contact with Matilde ble to assess someone who was confirmed or suspected to have Coronavirus / COVID-19? documented as of this encounter Plan of Treatment Not on filedocumented as of this encounter Visit Diagnoses Not on filedocumented in this encounter
--- OUTSIDE RECORDS SUMMARY | 2020-04-11 12:59 | XMS REPORT | Encounter Summary ---
Author Author [facility] Organization [facility] Address Unknown Phone Unavailable Care Team Providers Care Drum Handler Name Role Phone Heidi Christy MD PCP Encounter Details Care Team Description Date Type Department [facility]acho [facility] MD [address] [facility] [place] [address] [phone] 02/18/2020 [facility] Cardiovascular [facility] cine Encounter Remote Device Check [phone] Social History Date Tobacco Use Types Packs/Day [...] history available. Date Recorded COVID-19 Exposure Response 02/18/2020 1:13 PM CDT In the last month, have you been in contact with Matilde [facility] to assess someone who was confirmed or [...] Associated Diag nosis DEVICE EVALUATION - Routine 02/19/2020 SVT (supra ventricular REMOTE ILR 2:52 PM CDT tachycardia) (HCC) Heart palpitations documented in this encounter Results * DEVICE EVALUATION - REMOTE ILR (02/19/2020 2:52 PM CDT) [facility] Signature Generator [employer] OTHER OUTSIDE Medical Charge Entry Specialist LAB Generator Model [id number] OTHER OUTSIDE # LAB Generator [id number] OTHER OUTSIDE Serial # LAB Generator 10/27/17 OTHER OUTSIDE Implnat Date LAB MAURICE/EOL per transmitter OTHER OUTSIDE Indicator LAB Device Type ILR OTHER OUTSIDE LAB Wireless Yes OTHER OUTSIDE Generator LAB Device Dr.Martin Johnson OTHER OUTSIDE Implanted By LAB Device [employer] OTHER OUTSIDE [employer] LAB Transmitter Compatible Known Diagnosed Yes OTHER OUTSIDE AFib LAB On Yes OTHER OUTSIDE Anticoagulation LAB Remote Monitor [id number] OTHER OUTSIDE Serial# LAB ILR Symptom 4 [...] OUTSIDE LAB Eliquis [02/19/2020 2:55:49 PM - JONATHAN HANCOCK] Presenting EGM on 02/19/2020 @ 00:04:50 s hows sinus arrhythmia with V rates between 50's-60's. Summary report received and reviewed. N o new event to report. Please see scanned data sheets for marcel her review. Results routed to Dr. Johnson for signatu re and review. Performing Organization Address City/State/Zipcode Ph one Number OTHER OUTSIDE LAB documented in this encounter Visit Diagnoses Diagnosis SVT (supraventricular tachycardia) (HCC ) Other specified cardiac dysrhythmias Heart palpitations Palpitations documented in this encounter
--- OUTSIDE RECORDS SUMMARY | 2020-04-11 12:59 | XMS REPORT | Encounter Summary ---
Author Author [facility] Organization [facility] Address Unknown Phone Unavailable Care Team Providers Care Wool Sacker Name Role Phone Heidi Christy MD PCP Encounter Details Care Team Description Date Type Department 02/18/2020 Travel Social History Date Tobacco Use Types [...]
--- OUTSIDE RECORDS SUMMARY | 2020-04-11 12:59 | XMS REPORT | Encounter Summary ---
Author Author [facility] Organization [facility] Address Unknown Phone Unavailable Care Team Providers Care Washerette Machine Operator Name Role Phone Heidi Christy MD PCP Encounter Details Care Team Description Date Type Department 01/16/2020 Travel Social History Date Tobacco Use Types [...] history available. Date Recorded COVID-19 Exposure Response 01/16/2020 8:10 AM CDT In the last month, have you been in contact with Matilde ble to assess someone who was confirmed or suspected to have Coronavirus / COVID-19? documented as of this encounter Plan of Treatment Not on filedocumented as of this encounter Visit Diagnoses Not on filedocumented in this encounter
--- OUTSIDE RECORDS SUMMARY | 2020-04-11 12:59 | XMS REPORT | Encounter Summary ---
Author Author [facility] Organization [facility] Address Unknown Phone Unavailable Care Team Providers Care Rolling Down Machine Operator Name Role Phone Heidi Christy MD PCP Encounter Details Care Team Description Date Type Department [facility]acho Johnson [facility] [address] [facility] [place] [address] [phone] 01/15/2020 [facility] cine Encounter Remote Device Check [phone] Social History Date Tobacco Use Types Packs/Day Years Used Never Smoker Smokeless Tobacco: Never Used Drinks/Week oz/Week Comments Alcohol Use Occasionally a glass of wine Yes Sex Assigned at Date Recorded Not on file Industry Job Start Date Occupation Not on file Not on file Not on file Travel End Travel History Travel Start No recent travel history available. documented as of this encounter Medications at [...] Associated Diag nosis DEVICE EVALUATION - Routine 01/16/2020 SVT (supra ventricular REMOTE ILR 2:04 PM CDT tachycardia) ([facility]) Heart palpitations documented in this encounter Results * DEVICE EVALUATION - REMOTE ILR (01/16/2020 2:04 PM CDT) Generator [employer]idence OTHER OUTSIDE [employer] LAB Generator Model LNQ11 OTHER OUTSIDE # LAB Generator [id number] OTHER OUTSIDE Serial # LAB Generator 10/27/17 OTHER OUTSIDE Implnat Date LAB MAURICE/EOL per transmitter OTHER OUTSIDE Indicator LAB Device Type ILR OTHER OUTSIDE LAB Wireless Yes OTHER OUTSIDE Generator LAB Device Dr.Martin Johnson OTHER OUTSIDE Implanted By LAB Device [employer] OTHER OUTSIDE [place] LAB Transmitter Compatible Known Diagnosed Yes OTHER OUTSIDE AFib LAB On Yes OTHER OUTSIDE Anticoagulation LAB Remote Monitor [id number] OTHER OUTSIDE Serial# LAB ILR Symptom 4 [...]
--- OUTSIDE RECORDS SUMMARY | 2020-04-11 12:59 | XMS REPORT | Encounter Summary ---
Author Author [facility] Organization [facility] Address Unknown Phone Unavailable Care Team Providers Care Neurodiagnostic Technologist Name Role Phone Heidi Christy MD PCP Reason for Visit * Reason Comments Records Request Dr. Chuy Franklin-cardiology r ecords Encounter Details Care Team Description Date Type Department Chula Espana MA Records Request (Dr. Chuy Franklin-cardiolo gy records) 03/27/2020 Documentation [facility] [address] [place] [address] Social History Date Tobacco Use Types Packs/Day [...] have you been in contact with [facility] to assess someone who was confirmed or suspected to have Coronavirus / COVID-19? documented as of this encounter Progress Notes * Cuhla Espana MA - 03/27/2020 9:56 AM CDT Patient: Cherelle Kilgorejudy : 1950 Patient has a routine follow up appointment with Dr. Johnson on 03.28.2020. Grecia blount send her most recent labs, EKG tracing and OV visit note for continuity of Ca re. Thank you! Chula Espana MA documented in this encounter Plan of Treatment Not on filedocumented as of this encounter Visit Diagnoses Not on filedocumented in this encounter
[2020-04-11] MEDS ORDERED: LIDOCAINE JELLY 2% 6 ML SYRINGE MM PRN (13:00)
--- OUTSIDE RECORDS SUMMARY | 2020-04-11 13:00 | XMS REPORT | Encounter Summary ---
Author Author [facility] Organization [facility] Address Unknown Phone Unavailable Care Team Providers Care Internal Recruiter Name Role Phone Heidi Christy MD PCP Encounter Details Care Team Description Date Type Department Lacho Johnson MD [address] [facility] [place] [address] [phone] 11/14/2019 [facility] cine Encounter Remote Device Check [phone] Social History Date Tobacco Use Types Packs/Day [...] Associated Diag nosis DEVICE EVALUATION - Routine 11/15/2019 SVT (supra ventricular REMOTE ILR 12:00 PM 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 tachycardia) (HCC) Heart palpitations documented in this encounter Results * DEVICE EVALUATION - REMOTE ILR (11/15/2019 12:00 PM 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) Generator [employer] OTHER OUTSIDE Payroll Processor LAB Generator Model LNQ11 OTHER OUTSIDE # LAB Generator [id number] OTHER OUTSIDE Serial # LAB Generator 10/27/17 OTHER OUTSIDE Implnat Date LAB MAURICE/EOL per transmitter OTHER OUTSIDE Indicator LAB Device Type ILR OTHER OUTSIDE LAB Wireless Yes OTHER OUTSIDE Generator LAB Device Dr.Martin Johnson OTHER OUTSIDE Implanted By LAB Device [employer] OTHER OUTSIDE [place] LAB Transmitter Compatible Known Diagnosed Yes OTHER OUTSIDE AFib LAB On Yes OTHER OUTSIDE Anticoagulation LAB Remote Monitor [id number] OTHER OUTSIDE Serial# LAB ILR Symptom 4 [...] all episodes OTHER OUTSIDE LAB ILR Current 11/14/2019 to 12/15/2019 OTHER OUTSIDE Monitoring LAB Period ILR Date of 11/15/2019 OTHER OUTSIDE Last Daily LAB Connection ILR [...] Lifetime of Events as of ILR Presenting 11/15/2019 @ 00:04:50 shows SB OTHER O UTSIDE ECG Strip in the 50's LAB ILR Lifetime 11/15/2019 OTHER OUTSIDE Events as of LAB Datetion Specimen Narrative Performed At OTHER OUTSIDE LAB [facility] [11/15/2019 12:02:19 PM - JONATHAN HANCOCK ] Presenting EGM on 11/15/2019 @ 00:04:50 shows SB in the 's. Summary report received and reviewed. N o [...]
--- OUTSIDE RECORDS SUMMARY | 2020-04-11 13:00 | XMS REPORT | Encounter Summary ---
Author Author [facility] Organization [facility] Address Unknown Phone Unavailable Care Team Providers Care Laundry Attendant Name Role Phone Heidi Christy MD PCP Encounter Details Care Team Description Date Type Department Lacho Johnson MD [address] [facility] [place] [address] [phone] 10/15/2019 [facility] cine Encounter Remote Device Check [phone] Social History Date Tobacco Use Types Packs/Day [...] Associated Diag nosis DEVICE EVALUATION - Routine 10/16/2019 SVT (supra ventricular REMOTE ILR 2:27 PM 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 tachycardia) (HCC) Heart palpitations documented in this encounter Results * DEVICE EVALUATION - REMOTE ILR (10/16/2019 2:27 PM WORKERS 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) Generator [employer] OTHER OUTSIDE Communications Equipment Installer LAB Generator Model LNQ11 OTHER OUTSIDE # LAB Generator [id number] OTHER OUTSIDE Serial # LAB Generator 10/27/17 OTHER OUTSIDE Implnat Date LAB MAURICE/EOL per transmitter OTHER OUTSIDE Indicator LAB Device Type ILR OTHER OUTSIDE LAB Wireless Yes OTHER OUTSIDE Generator LAB Device Dr.Martin Johnson OTHER OUTSIDE Implanted By LAB Device [employer] OTHER OUTSIDE [place] LAB Transmitter Compatible Known Diagnosed Yes OTHER OUTSIDE AFib LAB On Yes OTHER OUTSIDE Anticoagulation LAB Remote Monitor [id number] OTHER OUTSIDE Serial# LAB ILR Symptom 4 [...] all episodes OTHER OUTSIDE LAB ILR Current 10/14/2019 to 11/14/2019 OTHER OUTSIDE Monitoring LAB Period ILR Date of 10/16/2019 OTHER OUTSIDE Last Daily LAB Connection ILR [...] Lifetime of Events as of ILR Presenting 10/16/2019 @ 00:04:50 shows SB OTHER OUTSIDE ECG Strip in the 50's LAB ILR Lifetime 10/16/2019 OTHER OUTSIDE Events as of LAB Datetion Specimen Narrative Performed At OTHER OUTSIDE LAB [facility] [10/16/2019 2:28:36 PM - JONATHAN HANCOCK ] Presenting EGM on 10/16/2019 @ 00:04:50 shows SB in the 50's. Summary report received and reviewed. N o new event to report. Results routed to Dr. Johnson for signatu re and review. Performing Organization Address City/State/Zipcode Ph one Number OTHER OUTSIDE LAB documented in this encounter Visit Diagnoses Diagnosis SVT (supraventricular tachycardia) (HCC ) Other specified cardiac dysrhythmias Heart palpitations Palpitations documented in this encounter
--- OUTSIDE RECORDS SUMMARY | 2020-04-11 13:00 | XMS REPORT | Encounter Summary ---
Author Author [facility] Organization [facility] Address Unknown Phone Unavailable Care Team Providers Care Office Administration Name Role Phone Heidi Christy MD PCP Encounter Details Care Team Description Date Type Department Lacho Johnson MD [address] [facility] [place] [address] [phone] 12/17/2019 [facility] cine Encounter Remote Device Check [phone] Social History Date Tobacco Use Types Packs/Day [...] Associated Diag nosis DEVICE EVALUATION - Routine 12/20/2019 SVT (supra ventricular REMOTE ILR 2:36 PM EDUCATION ASSISTANT tachycardia) (HCC) Heart palpitations documented in this encounter Results * DEVICE EVALUATION - REMOTE ILR (12/20/2019 2:36 PM EDUCATION ASSISTANT) Generator [employer] OTHER OUTSIDE Counseling Department Chair LAB Generator Model LNQ11 OTHER OUTSIDE # LAB Generator [id number] OTHER OUTSIDE Serial # LAB Generator 10/27/17 OTHER OUTSIDE Implnat Date LAB MAURICE/EOL per transmitter OTHER OUTSIDE Indicator LAB Device Type ILR OTHER OUTSIDE LAB Wireless Yes OTHER OUTSIDE Generator LAB Device Dr.Martin Johnson OTHER OUTSIDE Implanted By LAB Device [employer] OTHER OUTSIDE [place] LAB Transmitter Compatible Known Diagnosed Yes OTHER OUTSIDE AFib LAB On Yes OTHER OUTSIDE Anticoagulation LAB Remote Monitor [id number] OTHER OUTSIDE Serial# LAB ILR Symptom 4 7.5 mins each OTHER OUTSIDE Duration LAB ILR Tachy Rate 140 OTHER OUTSIDE LAB ILR Tachy 16 OTHER OUTSIDE Duration LAB ILR Pause 3 OTHER OUTSIDE Duration LAB ILR Beltran Rate 30 OTHER OUTSIDE LAB ILR Beltarn 4 OTHER OUTSIDE Duration LAB ILR AT Events 0 OTHER OUTSIDE Since Last LAB Interrogation ILR AT Lifetime 37 OTHER OUTSIDE Events as of LAB ILR AF Rate AF only OTHER OUTSIDE LAB ILR AF Duration all episodes OTHER OUTSIDE LAB ILR Current 12/15/2019 to 01/15/2020 OTHER OUTSIDE Monitoring LAB Period ILR Date of 12/20/2019 OTHER OUTSIDE Last Daily LAB Connection ILR [...] Lifetime of Events as of ILR Presenting 12/20/2019 @ 00:04:50 shows SB OTHER OU TSIDE ECG Strip in the 50's LAB ILR Lifetime 12/20/2019 OTHER OUTSIDE Events as of LAB Datetion Specimen Narrative Performed At OTHER OUTSIDE LAB [facility] [12/20/2019 2:37:53 PM - JONATHAN HANCOCK] Presenting EGM on 12/20/2019 @ 00:04:50 s hows SB in the 's. Summary report received [...]
--- OUTSIDE RECORDS SUMMARY | 2020-04-11 13:02 | XMS REPORT | CCD ---
Author Author Cherelle Christy Organization Heidi Christy MD, [facility] Address [address] [place] [address] Phone Care Team Providers Care Bridge Engineer Name Role Phone PP Unavailable CCM Unavailable Summary Purpose Interface Exchange Insurance Providers Payer name Policy type / Coverage type Covered democrat ID Effective Begin Date Effective End Date WPS Medicare Part B Medicare Part B [id number] 2015 Unknown [facility] Part B [id number] Un known Family history Brother Diagnosis Age At Onset No Family Disease Entered N/A Mother Diagnosis Age At Onset No Family Disease Entered N/A Father Diagnosis Age At Onset No Family Disease Entered N/A Son Diagnosis Age At Onset No Family Disease Entered N/A Daughter Diagnosis Age At Onset No Family Disease Entered N/A Social History Social History Element Codes Description Effective Dates Marital status Unknown M arried 11/25/2011 Number of children Unknown 2 1 daughter, 1 son 11/25/[address]: 594102502 Nonsmoker 11/25/2011 Has the patient ever used illegal drugs? Unknown Has never used illegal drugs 012 Allergies, Adverse Reactions, Alerts Substance Reaction Codes Entered Date Inactivated Date Status FLOXIN - ANTIBIOTIC Unknown 11/26/2011 No Inactive Date Active Past Medical History Illness Codes Condition Status Onset Date Resolved Date Atrophy of thyroid ( acquired) ICD-9: 244.8 ICD-10: E03.4 Active 04/11/2018 Unknown Chronic atrial fibri llation ICD-9: 427.31 ICD-10: I48.2 Active 04/11/2018 Unknown Encounter for gyneco logical examination (general) (routine) without abnormal findings ICD-9: V72.31 ICD-10: Z01.419 Active 03/17/2017 Unknown Encounter for screen ing mammogram for malignant neoplasm of breast ICD-9: V76.12 ICD-10: Z12.31 Active 03/09/2016 Unknown Encounter for immuni zation ICD-9: V04.81 ICD-10: Z23 Active 08/17/2017 Unknown Encounter for genera l adult medical examination without abnormal findings ICD-9: V70.0 ICD-10: Z00.00 Active 02/18/2016 Unknown Encounter for immuni zation ICD-9: V03.9 ICD-10: Z23 Active 02/18/2016 Unknown Hyperlipidemia, unsp ecified ICD-9: 272.4 ICD-10: E78.5 Active 02/16/2016 Unknown Hypothyroidism, unsp ecified ICD-9: 244.9 ICD-10: E03.9 Active 02/16/2016 Unknown Sacroiliitis ICD-9: 720.2 Active 03/30/2015 Unknown Well woman exam with routine gynecological exam ICD-9: V72.31 Active 01/10/2013 Unknown Vaginal bleeding ICD-9: 623.8 Active 11/29/2013 Unknown Abdominal pain ICD-9: 789.00 Active 08/27/2013 Unknown Dizziness ICD-9: 780.4 Active 08/27/2013 Unknow n Weakness ICD-9: 780.79 Active 08/27/2013 Unknow n Tick bite ICD-9: 919.4 Active 06/28/2013 Unknow n Irritable bowel synd marleen Unknown Active 11/25/2011 Unknown Mitral valve prolapse Unknown Active 11/25/2011 Unknown rosacea Unknown Active 11/25/2011 Unknow n Abnormal Pap smear o f cervix ICD-9: 795.00 Active 06/2012 Unknown Abnormal weight gain ICD-9: 783.1 Active 11/25/2011 Unknown Problems Condition Codes Effectiv e Dates Condition Status Atrophy of thyroid ( acquired) ICD-9: 244.8 ICD-10: E03.4 04/11/2018 Active Chronic atrial fibri llation ICD-9: 427.31 ICD-10: I48.2 04/11/2018 Active Encounter for gyneco logical examination (general) (routine) without abnormal findings ICD-9: V72.31 ICD-10: Z01.419 03/17/2017 Active Encounter for screen ing mammogram for malignant neoplasm of breast ICD-9: V76.12 ICD-10: Z12.31 03/09/2016 Active Encounter for immuni zation ICD-9: V04.81 ICD-10: Z23 08/17/2017 Active Encounter for genera l adult medical examination without abnormal findings ICD-9: V70.0 ICD-10: Z00.00 02/18/2016 Active Encounter for immuni zation ICD-9: V03.9 ICD-10: Z23 02/18/2016 Active Hyperlipidemia, unsp ecified ICD-9: 272.4 ICD-10: E78.5 02/16/2016 Active Hypothyroidism, unsp ecified ICD-9: 244.9 ICD-10: E03.9 02/16/2016 Active Sacroiliitis ICD-9: 720.2 03/30/2015 Active Well woman exam with routine gynecological exam ICD-9: V72.31 01/10/2013 Active Vaginal bleeding ICD-9: 623.8 11/29/2013 Active Abdominal pain ICD-9: 789.00 08/27/2013 Active Dizziness ICD-9: 780.4 08/27/2013 Active Weakness ICD-9: 780.79 08/27/2013 Active Tick bite ICD-9: 919.4 06/28/2013 Active Irritable bowel synd marleen Unknown 11/25/2011 Activ e Mitral valve prolapse Unknown 11/25/2011 Active rosacea Unknown 11/25/2011 Active Abnormal Pap smear o f cervix ICD-9: 795.00 11/25/2011 Active Abnormal weight gain ICD-9: 783.1 11/25/2011 Active Medications Medication Codes Instruc tions Start Date Stop Date Sta tus Fill Instructions pravastatin 10 mg ta blet RxNorm: 706678 TAKE 1 TABLET BY MOUT H AT BEDTIME 04/24/2019 08/21/2019 Ac tive Generic For:PRAVACHOL 10MG 04/24/2019 9 :49:53 AM pravastatin 10 mg ta blet RxNorm: 245513 TAKE 1 TABLET BY MOUT H AT BEDTIME 04/24/2019 04/23/2019 In active Generic For:PRAVACHOL 10MG 04/24/2019 9 :49:47 AM N O T I C E Last quantity doesn't match original quantity pravastatin 10 mg ta blet RxNorm: 687428 TAKE 1 TABLET BY MOUT H AT BEDTIME 10/16/2018 02/12/2019 In active Generic For:PRAVACHOL 10MG 10/14/2018 8 :55:15 AM Synthroid 50 mcg tablet RxNorm: 540290 TAKE 1 TABLET BY MOUTH DAILY 10/06/2018 09/30/2019 Active Generic For:SYNTHROID 50MCG TAB 018 9:31:36 AM pravastatin 10 mg ta blet RxNorm: 942060 TAKE 1 TABLET BY MOUT H AT BEDTIME 02/28/2018 06/27/2018 In active Generic For:PRAVACHOL 10MG 02/28/2018 9 :27:39 AM Synthroid 50 mcg tablet RxNorm: 683308 TAKE 1 TABLET BY MOUTH DAILY 09/26/2017 09/20/2018 Inactive Generic For:SYNTHROID 50MCG TAB 017 9:16:20 AM pravastatin 10 mg ta blet RxNorm: 274543 TAKE 1 TABLET BY MOUT H AT BEDTIME 07/15/2017 11/11/2017 In active Generic For:PRAVACHOL 10MG 07/15/2017 8 :54:19 AM Estrace 0.01% (0.1 m g/gram) vaginal cream RxNorm: 668923 1 VAG BIW 05/23/2017 12/18/2017 Inactive pt wants this filled at [facility] Estrace 0.01% (0.1 m g/gram) vaginal cream RxNorm: 600041 1 VAG BIW 05/23/2017 05/22/2017 Inactive gabapentin 300 mg ca psule RxNorm: 694887 1 cap(s) po tid,Instr :for neuropathic pain 03/31/2017 No Stop Date Active pravastatin 10 mg ta blet RxNorm: 162854 TAKE 1 TABLET BY MOUT H AT BEDTIME 09/20/2016 03/18/2017 In active Generic For:PRAVACHOL 10MG 09/20/2016 9 :01:58 AM Synthroid 50 mcg tablet RxNorm: 045758 TAKE 1 TABLET BY MOUTH DAILY 07/22/2016 07/16/2017 Inactive Generic For:SYNTHROID 50MCG TAB 016 9:11:52 AM pravastatin 10 mg ta blet RxNorm: 074439 TAKE 1 TABLET BY MOUT H AT BEDTIME 03/23/2016 09/18/2016 In active Generic For:PRAVACHOL 10MG pravastatin 10 mg ta blet RxNorm: 459599 TAKE 1 TABLET BY MOUT H AT BEDTIME 09/26/2015 03/22/2016 In active Generic For:PRAVACHOL 10MG 09/26/2015 1 :46:52 PM Synthroid 50 mcg tablet RxNorm: 109442 1 Tablet(s) PO daily 07/24/2015 07/17/2016 Inactive Kenalog 40 mg/mL [employer] pension for injection RxNorm: 2961232 1 Milliliter(s) Inj 03/31/2015 03/31/2015 In active pravastatin 10 mg ta blet RxNorm: 458466 TAKE 1 TABLET BY MOUT H AT BEDTIME 03/31/2015 09/25/2015 In active Generic For:PRAVACHOL 10MG 03/29/2015 8 :51:39 AM pravastatin 10 mg ta blet RxNorm: 939950 1 Tablet(s) PO QHS (n eeds appt for further refills) 02/27/2015 03/28/2015 Inactive [SAVINGS FOR NON-COVERED DR UGS -- BIN:[id number], PCN: [id number], Group: XXXXX, ID# XXXXXXX, Questions: . THIS IS NOT INSURANCE.] pravastatin 10 mg ta blet RxNorm: 595670 1 Tablet(s) PO QHS (n eeds appt for further refills) 01/28/2015 02/26/2015 Inactive [SAVINGS FOR NON-COVERED DR UGS -- BIN:[id number], PCN: [id number], Group: XXXXX, ID# XXXXXXX, Questions: . THIS IS NOT INSURANCE.] pravastatin 10 mg ta blet RxNorm: 450095 1 Tablet(s) PO QHS 07/18/2014 01/13/2015 Inactive Synthroid 50 mcg tablet RxNorm: 265369 1 Tablet(s) PO daily 05/31/2014 05/25/2015 Inactive acyclovir 400 mg tablet RxNorm: 666874 1 Tablet(s) PO QID 05/31/2014 06/19/2014 Inactive Prozac 10 mg capsule RxNorm: 176731 1 Capsule(s) PO QPM 02/04/2014 02/16/2016 Inactive may dispense generic CombiPatch 0.05 mg-0 .14 mg/24 hr transdermal RxNorm: 4841738 1 Patch TD BIW 12/25/2013 01/23/2014 In active pravastatin 10 mg ta blet RxNorm: 900702 1 Tablet(s) PO QHS 12/20/2013 06/17/2014 Inactive medroxyprogesterone 5 mg tablet RxNorm: 8678923 Tablet(s) PO TAKE 1 TABLET ONCE DAILY 10 DAYS PER MONTH 09/24/2013 12/24/2013 Inactive Premarin 0.3 mg tablet RxNorm: 445021 Tablet(s) PO TAKE 1 TABLET BY MOUTH ONCE DAILY. 09/24/2013 12/24/2013 Inactive doxycycline hyclate 100 mg tablet RxNorm: 8639777 1 Tablet(s) PO BID 06/28/2013 07/04/2013 Inactive pravastatin 10 mg ta blet RxNorm: 286418 1 Tablet(s) PO QHS 05/31/2013 11/26/2013 Inactive Synthroid 50 mcg tablet RxNorm: 207247 1 Tablet(s) PO daily 03/22/2013 03/21/2013 Inactive Synthroid 50 mcg tablet RxNorm: 142524 1 Tablet(s) PO daily 03/22/2013 03/16/2014 Inactive pravastatin 10 mg ta blet RxNorm: 029134 1 Tablet(s) PO QHS 01/15/2013 05/14/2013 Inactive Synthroid 25 mcg tablet RxNorm: 421606 1 Tablet(s) PO daily 01/15/2013 03/22/2013 Inactive brand name only pravastatin 10 mg ta blet RxNorm: 064211 1 Tablet(s) PO QHS 01/15/2013 01/14/2013 Inactive Climara Pro 0.045 mg -0.015 mg/24 hr Transderm Patch RxNorm: 510949 1 Application TD QW 01/10/2013 08/26/2013 Inactive Synthroid 25 mcg tablet RxNorm: 632322 1 Tablet(s) PO daily 01/10/2013 01/14/2013 Inactive acyclovir 400 mg tablet RxNorm: 591871 1 Tablet(s) PO QID 10/31/2012 11/09/2012 Inactive levothyroxine 25 mcg tablet RxNorm: 535140 1 Tablet(s) PO daily 09/05/2012 01/10/2013 Inactive medroxyprogesterone 5 mg tablet RxNorm: 8076856 Tablet(s) PO 02/09/2012 01/10/2013 Inactive TAKE 1 TABLET ONCE DAILY 10 DAYS PER Tue Premarin 0.3 mg tablet RxNorm: 018869 1 Tablet(s) PO daily 01/31/2012 01/10/2013 Inactive levothyroxine 25 mcg tablet RxNorm: 112196 1 Tablet(s) PO daily 01/20/2012 07/17/2012 Inactive levothyroxine 25 mcg Tab RxNorm: 126583 1 Tablet(s) PO daily 07/01/2011 07/30/2011 Inactive aspirin 325 mg Tab RxNorm: 118761 1 Tablet(s) PO daily No Start Date Active Eliquis 5 mg tablet RxNorm: 1340720 1 Tablet(s) PO BID No Start Date Active flecainide 50 mg tablet RxNorm: 360795 1 Tablet(s) PO BID No Start Date Active gabapentin 300 mg ca psule RxNorm: 110871 1 Capsule(s) PO TID No Start Date 03/30/2017 Inactive Carafate 1 gram tablet RxNorm: 095788 1 Tablet(s) PO QID No Start Date 02/16/2016 Inactive medroxyprogesterone 5 mg Tab RxNorm: 4043983 1 Tablet(s) PO daily No Start Date 02/08/2012 Inactive Dexilant 60 mg capsu le, delayed release RxNorm: 943964 1 Capsule(s) PO daily No Start Date 02/16/2016 Inactive Premarin 0.3 mg Tab RxNorm: 369531 1 Tablet(s) PO daily No Start Date 01/30/2012 Inactive Motrin IB 200 mg Tab RxNorm: 254020 1 Tablet(s) PO daily No Start Date 02/16/2016 Inactive Fish Oil 1,000 mg Cap RxNorm: 1 Capsule(s) PO daily No Start Date 02/16/2016 Inactive niacin 500 mg Tab RxNorm: 468631 1 Tablet(s) PO daily No Start Date 02/16/2016 Inactive Medication Administered Medication Codes Instruc tions Start Date Status Kenalog 40 mg/mL suspension for injection RxNorm: 4835323 1Milliliter 03/31/2015 N o longer Active Immunizations Vaccine Codes Date Status Influenza CVX: 141 08/24 completed Influenza CVX: 141 08/17 completed Pneumococcal (Adult) CVX: 133 02/19/2016 completed Assessments Condition Codes Effectiv e Dates Encounter for gynecological examination (general) (routine) without abnormal findings ICD-10: Z01.419 ICD-9: V72.31 04/11/2018 Atrophy of thyroid (acquired) ICD-10 : E03.4 ICD-9: 244.8 04/11/2018 Chronic atrial fibrillation ICD-10: I48.2 ICD-9: 427.31 04/11/2018 Encounter for screening mammogram for ma lignant neoplasm of breast ICD-10: Z12.31 ICD-9: V76.12 04/11/2018 Encounter for immunization ICD-10: Z 23 ICD-9: V04.81 08/17/2017 Encounter for general adult medical exam ination without abnormal findings ICD-10: Z00.00 ICD-9: V70.0 02/19/2016 Encounter for immunization ICD-10: Z 23 ICD-9: V03.9 02/19/2016 Hyperlipidemia, unspecified ICD-10: E78.5 ICD-9: 272.4 02/17/2016 Hypothyroidism, unspecified ICD-10: E03.9 ICD-9: 244.9 02/17/2016 Sacroiliitis ICD-9: 720.2 03/31/2015 Well woman exam with routine gynecological exam ICD-9: V72.31 03/31/2015 Vaginal bleeding ICD-9: 623.8 11/29/2013 Abdominal pain ICD-9: 789.00 08/27/2013 Weakness ICD-9: 780.79 1 10/27/2012 Dizziness ICD-9: 780.4 1 10/27/2012 Tick bite ICD-9: 919.4 0 06/28/2013 Abnormal weight gain ICD-9: 783.1 11/25/2011 Abnormal Pap smear of cervix ICD-9: 795.00 11/25/2011 Reason For Visit Reason For Visit Effective Dates Notes well woman exam (65+ years) 04/11/2018 vaccination against influenza 08/17/2017 well woman exam (65+ years) 03/17/2017 Annual Medicare Wellness Exam 02/19/2016 well woman exam (40-65 years) 02/17/2016 well woman exam (40-65 years) 03/31/2015 right leg well woman exam (40-65 years) 02/04/2014 vaginal bleeding 11/29/2013 dizziness 08/27/2013 arthropod bite 06/28/2013 well woman exam (40-65 years) 01/10/2013 Pap smear abnormality 11/25/2011 Results Observation Observation Code Item Item Code Result Date Tsh Ord6 TSH (3rd IS) 1.97 uIU/mL 04/14/2018 Lipid Ord30 CHOL 202 mg/dL 04/14/2018 Lipid Ord30 HDL 57.0 mg/dl 04/14/2018 Lipid Ord30 TRIG 109 mg/dL 04/14/2018 Lipid Ord30 LDL 123 mg/dL 04/14/2018 Lipid Ord30 C/HDL 3.5 Ratio 04/14/2018 Comp Metabolic Qtj169 NA 141 mEq/L 04/14/2018 Comp Metabolic Thd757 K 4.1 mEq/L 04/14/2018 Comp Metabolic Ruu178 CL 104 mEq/L 04/14/2018 Comp Metabolic Oui632 CO2 30.0 mEq/L 04/14/2018 Comp Metabolic Gce489 AN ION GAP 11 04/14/2018 Comp Metabolic Kkx288 GL UCOSE 101 mg/dL 04/14/2018 Comp Metabolic Cwg064 Cr eat 0.8 mg/dL 04/14/2018 Comp Metabolic Doa176 eG FR 73 ml/min/1.73m2 04/14 Comp Metabolic Lzy415 BUN 16 mg/dL 04/14/2018 Comp Metabolic Tnz042 B/ C Ratio 19.3 Ratio 04/14/2018 Comp Metabolic Ufi841 CA LCIUM 9.0 mg/dL 04/14/2018 Comp Metabolic Fnc738 AL K PHOS 74 U/L 04/14/2018 Comp Metabolic Jpx622 T(SGOT) 18 U/L 04/14/2018 Comp Metabolic Rpb674 AL T(SGPT) 13 U/L 04/14/2018 Comp Metabolic Psf032 BI LI T 0.6 mg/dL 04/14/2018 Comp Metabolic Gnb046 AL BUMIN 4.1 g/dL 04/14/2018 Comp Metabolic Ygg661 TP RO 6.1 g/dL 04/14/2018 Comp Metabolic Zqm991 GL OB 2.1 g/dL 04/14/2018 Comp Metabolic Zmc862 A/ G Ratio 2.0 Ratio 04/14/2018 Comp Metabolic Hfk518 Os mo 283 mOsmo 04/14/2018 Free T4 Mfq974 FREE T4 0.96 ng/dL 04/14/2018 Cbc With Differential Ord2 WBC 5.48 K/ul 04/14/2018 Cbc With Differential Ord2 RBC 4.84 M/ul 04/14/2018 Cbc With Differential Ord2 HGB 13.9 g/dl 04/14/2018 Cbc With Differential Ord2 HCT 42.2 % 04/14/2018 Cbc With Differential Ord2 Neut% 52.2 % 04/14/2018 Cbc With Differential Ord2 MCV 87.2 fl 04/14/2018 Cbc With Differential Ord2 Lymph% 36.7 % 04/14/2018 Cbc With Differential Ord2 MCH 28.7 pg 04/14/2018 Cbc With Differential Ord2 [place]% 9.1 % 04/14/2018 Cbc With Differential Ord2 MCHC 32.9 pg 04/14/2018 Cbc With Differential Ord2 Eos% 1.6 % 04/14/2018 Cbc With Differential Ord2 PLT 272 K/ul 04/14/2018 Cbc With Differential Ord2 Baso% 0.4 % 04/14/2018 Cbc With Differential Ord2 RDW 14.5 % 04/14/2018 Cbc With Differential Ord2 Neut ABS# 2.86 K/ul 04/14/2018 Cbc With Differential Ord2 Lymph ABS# 2.01 K/ul 04/14/2018 Cbc With Differential Ord2 [place] ABS# 0.5 K/ul 04/14/2018 Cbc With Differential Ord2 Eos ABS# 0.1 K/ul 04/14/2018 Cbc With Differential Ord2 Baso ABS# 0.0 K/ul 04/14/2018 Lipid Ord30 CHOL 173 mg/dL 03/18/2017 Lipid Ord30 HDL 51.0 mg/dl 03/18/2017 Lipid Ord30 TRIG 89 mg/dL 03/18/2017 Lipid Ord30 LDL 104 mg/dL 03/18/2017 Lipid Ord30 C/HDL 3.4 Ratio 03/18/2017 Free T4 Eoh072 FREE T4 0.94 ng/dL 03/18/2017 Cbc With Differential Ord2 WBC 5.69 K/ul 03/18/2017 Cbc With Differential Ord2 RBC 4.68 M/ul 03/18/2017 Cbc With Differential Ord2 HGB 13.5 g/dl 03/18/2017 Cbc With Differential Ord2 HCT 41.2 % 03/18/2017 Cbc With Differential Ord2 Neut% 59.3 % 03/18/2017 Cbc With Differential Ord2 MCV 88.0 fl 03/18/2017 Cbc With Differential Ord2 Lymph% 30.9 % 03/18/2017 Cbc With Differential Ord2 MCH 28.8 pg 03/18/2017 Cbc With Differential Ord2 [place]% 7.7 % 03/18/2017 Cbc With Differential Ord2 MCHC 32.8 pg 03/18/2017 Cbc With Differential Ord2 Eos% 1.6 % 03/18/2017 Cbc With Differential Ord2 PLT 264 K/ul 03/18/2017 Cbc With Differential Ord2 Baso% 0.5 % 03/18/2017 Cbc With Differential Ord2 RDW 14.1 % 03/18/2017 Cbc With Differential Ord2 Neut ABS# 3.37 K/ul 03/18/2017 Cbc With Differential Ord2 Lymph ABS# 1.76 K/ul 03/18/2017 Cbc With Differential Ord2 [place] ABS# 0.4 K/ul 03/18/2017 Cbc With Differential Ord2 Eos ABS# 0.1 K/ul 03/18/2017 Cbc With Differential Ord2 Baso ABS# 0.0 K/ul 03/18/2017 Tsh Ord6 hTSH II 1.47 uIU/mL 03/18/2017 Comp Metabolic Cmw727 NA 140 mEq/L 03/18/2017 Comp Metabolic Ule969 K 4.4 mEq/L 03/18/2017 Comp Metabolic Xva082 CL 105 mEq/L 03/18/2017 Comp Metabolic Pob405 CO2 29.0 mEq/L 03/18/2017 Comp Metabolic Edq143 AN ION GAP 10 03/18/2017 Comp Metabolic Coi621 GL UCOSE 89 mg/dL 03/18/2017 Comp Metabolic Oxw852 Cr eat 0.7 mg/dL 03/18/2017 Comp Metabolic Lwo484 eG FR 86 ml/min/1.73m2 03/18 Comp Metabolic Kee068 BUN 13 mg/dL 03/18/2017 Comp Metabolic Njz862 B/ C Ratio 18.1 Ratio 03/18/2017 Comp Metabolic Iyc312 CA LCIUM 8.8 mg/dL 03/18/2017 Comp Metabolic Rmq962 AL K PHOS 77 U/L 03/18/2017 Comp Metabolic Blo135 T(SGOT) 25 U/L 03/18/2017 Comp Metabolic Lbk234 AL T(SGPT) 18 U/L 03/18/2017 Comp Metabolic Zzo929 BI LI T 0.8 mg/dL 03/18/2017 Comp Metabolic Pzo922 AL BUMIN 4.0 g/dL 03/18/2017 Comp Metabolic Yxx381 TP RO 6.1 g/dL 03/18/2017 Comp Metabolic Pcx863 GL OB 2.1 g/dL 03/18/2017 Comp Metabolic Ahf943 A/ G Ratio 1.9 Ratio 03/18/2017 Comp Metabolic Caa515 Os mo 279 mOsmo 03/18/2017 Lipid Ord30 CHOL 182 mg/dL 02/17/2016 Lipid Ord30 HDL 56.0 mg/dl 02/17/2016 Lipid Ord30 TRIG 80 mg/dL 02/17/2016 Lipid Ord30 LDL 110 mg/dL 02/17/2016 Lipid Ord30 C/HDL 3.3 Ratio 02/17/2016 Free T4 Ems390 FREE T4 1.00 ng/dL 02/17/2016 Tsh Ord6 hTSH II 2.03 uIU/mL 02/17/2016 Comp Metabolic Bng596 NA 140 mEq/L 02/17/2016 Comp Metabolic Hte077 K 3.8 mEq/L 02/17/2016 Comp Metabolic Nqd262 CL 104 mEq/L 02/17/2016 Comp Metabolic Tpx395 CO2 32.0 mEq/L 02/17/2016 Comp Metabolic Uui806 AN ION GAP 8 02/17/2016 Comp Metabolic Amu054 GL UCOSE 96 mg/dL 02/17/2016 Comp Metabolic Wwt351 Cr eat 0.8 mg/dL 02/17/2016 Comp Metabolic Ier193 eG FR 76 ml/min/1.73m2 02/16 Comp Metabolic Vgq467 BUN 14 mg/dL 02/17/2016 Comp Metabolic Vse240 B/ C Ratio 17.5 Ratio 02/17/2016 Comp Metabolic Ftq765 CA LCIUM 9.4 mg/dL 02/17/2016 Comp Metabolic Jhk470 AL K PHOS 66 U/L 02/17/2016 Comp Metabolic Die734 T(SGOT) 16 U/L 02/17/2016 Comp Metabolic Qbw751 AL T(SGPT) 13 U/L 02/17/2016 Comp Metabolic Scg531 BI LI T 0.8 mg/dL 02/17/2016 Comp Metabolic Lpd480 AL BUMIN 4.3 g/dL 02/17/2016 Comp Metabolic Lxj474 TP RO 6.3 g/dL 02/17/2016 Comp Metabolic Xfc826 GL OB 2.0 g/dL 02/17/2016 Comp Metabolic Sow545 A/ G Ratio 2.2 Ratio 02/17/2016 Comp Metabolic Sdl409 Os mo 280 mOsmo 02/17/2016 Cbc With Differential Ord2 WBC 5.44 K/ul 02/17/2016 Cbc With Differential Ord2 RBC 4.52 M/ul 02/17/2016 Cbc With Differential Ord2 HGB 13.0 g/dl 02/17/2016 Cbc With Differential Ord2 HCT 39.1 % 02/17/2016 Cbc With Differential Ord2 Neut% 49.2 % 02/17/2016 Cbc With Differential Ord2 MCV 86.5 fl 02/17/2016 Cbc With Differential Ord2 Lymph% 38.4 % 02/17/2016 Cbc With Differential Ord2 MCH 28.8 pg 02/17/2016 Cbc With Differential Ord2 [place]% 9.4 % 02/17/2016 Cbc With Differential Ord2 MCHC 33.2 pg 02/17/2016 Cbc With Differential Ord2 Eos% 2.4 % 02/17/2016 Cbc With Differential Ord2 PLT 262 K/ul 02/17/2016 Cbc With Differential Ord2 Baso% 0.6 % 02/17/2016 Cbc With Differential Ord2 RDW 14.3 % 02/17/2016 Cbc With Differential Ord2 Neut ABS# 2.68 K/ul 02/17/2016 Cbc With Differential Ord2 Lymph ABS# 2.09 K/ul 02/17/2016 Cbc With Differential Ord2 [place] ABS# 0.5 K/ul 02/17/2016 Cbc With Differential Ord2 Eos ABS# 0.1 K/ul 02/17/2016 Cbc With Differential Ord2 Baso ABS# 0.0 K/ul 02/17/2016 Cbc With Differential Ord2 New Analyzer Notice Please note new ref ranges s tarting 10-29-2015 due to implemntation of new five part differential hematolgy analyzer. 02/17/2016 GC/CHL PRB [id number] CHLM PROBE NEG 04/01/2015 GC/CHL PRB [id number] GC [place] OBE NEG 04/01/2015 GC/CHL PRB [id number] CHLM PROBE NEG 02/05/2014 GC/CHL PRB [id number] GC [place] OBE NEG 02/05/2014 Review of Systems System Result Effective Dates Constitutional No night sweats 04/11/2018 Constitutional No chills 04/11/2018 Constitutional No fatigue 04/11/2018 Constitutional No fever 04/11/2018 Ears/Nose/Throat/Neck No headache 04/11/2018 Cardiovascular No chest pain/pressure 04/11/2018 Cardiovascular No dyspnea 04/11/2018 Respiratory No chest congestion 04/11/2018 Respiratory No chest tightness 04/11/2018 Respiratory No cough Gastrointestinal No abdominal pain 04/11/2018 Gastrointestinal No anorexia 04/11/2018 Gastrointestinal No constipation 04/11/2018 Musculoskeletal No stiffness 04/11/2018 Dermatologic No rash Dermatologic No sores Neurologic No dizziness 04/11/2018 Neurologic No headache 0 04/11/2018 Psychiatric No anxiety 0 04/11/2018 Psychiatric No depression 04/11/2018 Constitutional No night sweats 03/17/2017 Constitutional No chills 03/17/2017 Constitutional No fatigue 03/17/2017 Constitutional No fever 03/17/2017 Ears/Nose/Throat/Neck No headache 03/17/2017 Cardiovascular No chest pain/pressure 03/17/2017 Cardiovascular No dyspnea 03/17/2017 Respiratory No chest congestion 03/17/2017 Respiratory No chest tightness 03/17/2017 Respiratory No cough 10/2016 Gastrointestinal No abdominal pain 03/17/2017 Gastrointestinal No anorexia 03/17/2017 Gastrointestinal No constipation 03/17/2017 Musculoskeletal No stiffness 03/17/2017 Dermatologic No rash 10/2016 Dermatologic No sores Neurologic No dizziness 03/17/2017 Neurologic No headache 0 03/17/2017 Psychiatric No anxiety 0 03/17/2017 Psychiatric No depression 03/17/2017 Constitutional No recent illness 02/19/2016 Constitutional No anorexia 02/19/2016 Constitutional No night sweats 02/19/2016 Constitutional No chills 02/19/2016 Constitutional No diaphoresis 02/19/2016 Constitutional No fatigue 02/19/2016 Constitutional No fever 02/19/2016 Constitutional No insomnia 02/19/2016 Constitutional No malaise 02/19/2016 Constitutional No weight loss 02/19/2016 Constitutional No weight gain 02/19/2016 Eyes No eye discharge Eyes No eye erythema 02/2016 Ears/Nose/Throat/Neck No dizziness 02/19/2016 Cardiovascular No chest pain/pressure 02/19/2016 Respiratory No cough 02/2016 Gastrointestinal No abdominal pain 02/19/2016 Gastrointestinal gas and bloating 02/19/2016 Genitourinary/Nephrology No dysuria 02/19/2016 Musculoskeletal back pain 02/19/2016 Dermatologic No rash 02/2016 Neurologic No alteration of consciousness 02/19/2016 Psychiatric No depression 02/19/2016 Endocrine No dry or coarse skin 02/19/2016 Musculoskeletal back pain 02/17/2016 Constitutional No recent illness 02/17/2016 Constitutional No night sweats 02/17/2016 Constitutional No anorexia 02/17/2016 Constitutional No chills 02/17/2016 Constitutional No diaphoresis 02/17/2016 Constitutional No fatigue 02/17/2016 Constitutional No fever 02/17/2016 Constitutional No malaise 02/17/2016 Constitutional No insomnia 02/17/2016 Constitutional No weight loss 02/17/2016 Constitutional No weight gain 02/17/2016 Eyes No eye discharge Eyes No eye erythema 12/2015 Ears/Nose/Throat/Neck No dizziness 02/17/2016 Cardiovascular No chest pain/pressure 02/17/2016 Respiratory No cough 12/2015 Gastrointestinal No abdominal pain 02/17/2016 Gastrointestinal gas and bloating 02/17/2016 Genitourinary/Nephrology No dysuria 02/17/2016 Dermatologic No rash 12/2015 Neurologic No alteration of consciousness 02/17/2016 Constitutional No night sweats 03/31/2015 Constitutional No chills 03/31/2015 Constitutional No fatigue 03/31/2015 Constitutional No fever 03/31/2015 Ears/Nose/Throat/Neck No headache 03/31/2015 Cardiovascular No chest pain/pressure 03/31/2015 Cardiovascular No dyspnea 03/31/2015 Respiratory No chest congestion 03/31/2015 Respiratory No chest tightness 03/31/2015 Respiratory No cough Gastrointestinal No abdominal pain 03/31/2015 Gastrointestinal No anorexia 03/31/2015 Gastrointestinal No constipation 03/31/2015 Musculoskeletal No stiffness 03/31/2015 Dermatologic No rash Dermatologic No sores Neurologic No dizziness 03/31/2015 Neurologic No headache 0 03/31/2015 Psychiatric No anxiety 0 03/31/2015 Psychiatric No depression 03/31/2015 Musculoskeletal back pain 03/31/2015 Constitutional No night sweats 02/04/2014 Constitutional No chills 02/04/2014 Constitutional No fatigue 02/04/2014 Constitutional No fever 02/04/2014 Constitutional weight gain 02/04/2014 Ears/Nose/Throat/Neck No headache 02/04/2014 Cardiovascular No chest pain/pressure 02/04/2014 Cardiovascular No dyspnea 02/04/2014 Respiratory No chest congestion 02/04/2014 Respiratory No chest tightness 02/04/2014 Respiratory No cough Gastrointestinal No abdominal pain 02/04/2014 Gastrointestinal No anorexia 02/04/2014 Gastrointestinal No constipation 02/04/2014 Musculoskeletal No stiffness 02/04/2014 Musculoskeletal No arthralgia(s) 02/04/2014 Dermatologic No rash Dermatologic No sores Neurologic No dizziness 02/04/2014 Neurologic No headache 0 02/04/2014 Psychiatric No anxiety 0 02/04/2014 Psychiatric No depression 02/04/2014 Constitutional No recent illness 11/29/2013 Constitutional No anorexia 11/29/2013 Constitutional No night sweats 11/29/2013 Constitutional No chills 11/29/2013 Constitutional No diaphoresis 11/29/2013 Constitutional No fatigue 11/29/2013 Constitutional No fever 11/29/2013 Constitutional No insomnia 11/29/2013 Constitutional No malaise 11/29/2013 Gastrointestinal No abdominal pain 11/29/2013 Gastrointestinal No constipation 11/29/2013 Gastrointestinal No diarrhea 11/29/2013 Gastrointestinal No nausea 11/29/2013 Gastrointestinal No vomiting 11/29/2013 Eyes No eye discharge Eyes No eye erythema Ears/Nose/Throat/Neck No dizziness 11/29/2013 Ears/Nose/Throat/Neck No headache 11/29/2013 Cardiovascular No chest pain/pressure 11/29/2013 Respiratory No cough Musculoskeletal No joint complaint 11/29/2013 Dermatologic No sores Dermatologic No rash Constitutional No night sweats 08/27/2013 Constitutional No chills 08/27/2013 Constitutional No fatigue 08/27/2013 Constitutional No fever 08/27/2013 Ears/Nose/Throat/Neck No headache 08/27/2013 Cardiovascular No chest pain/pressure 08/27/2013 Cardiovascular No dyspnea 08/27/2013 Respiratory No chest congestion 08/27/2013 Respiratory No chest tightness 08/27/2013 Respiratory No cough 08/2013 Gastrointestinal abdominal pain 08/27/2013 Gastrointestinal No anorexia 08/27/2013 Gastrointestinal No constipation 08/27/2013 Musculoskeletal No stiffness 08/27/2013 Musculoskeletal No arthralgia(s) 08/27/2013 Dermatologic No rash 08/2013 Dermatologic No sores Psychiatric No anxiety 1 10/27/2012 Psychiatric No depression 08/27/2013 Constitutional recent illness 08/27/2013 Constitutional No recent illness 06/28/2013 Constitutional No anorexia 06/28/2013 Constitutional No night sweats 06/28/2013 Constitutional No chills 06/28/2013 Constitutional No diaphoresis 06/28/2013 Constitutional No fatigue 06/28/2013 Constitutional No fever 06/28/2013 Constitutional No insomnia 06/28/2013 Constitutional No malaise 06/28/2013 Constitutional No weight loss 06/28/2013 Constitutional No weight gain 06/28/2013 Constitutional No night sweats 01/10/2013 Constitutional No chills 01/10/2013 Constitutional No fatigue 01/10/2013 Constitutional No fever 01/10/2013 Constitutional weight gain 01/10/2013 Ears/Nose/Throat/Neck No headache 01/10/2013 Cardiovascular No chest pain/pressure 01/10/2013 Cardiovascular No dyspnea 01/10/2013 Respiratory No chest congestion 01/10/2013 Respiratory No chest tightness 01/10/2013 Respiratory No cough Gastrointestinal No abdominal pain 01/10/2013 Gastrointestinal No anorexia 01/10/2013 Gastrointestinal No constipation 01/10/2013 Musculoskeletal No stiffness 01/10/2013 Musculoskeletal No arthralgia(s) 01/10/2013 Dermatologic No rash Dermatologic No sores Neurologic No dizziness 01/10/2013 Neurologic No headache 0 01/10/2013 Psychiatric No anxiety 0 01/10/2013 Psychiatric No depression 01/10/2013 Constitutional No night sweats 11/25/2011 Constitutional No chills 11/25/2011 Constitutional No fatigue 11/25/2011 Constitutional No fever 11/25/2011 Constitutional weight gain 11/25/2011 Psychiatric No anxiety 0 11/25/2011 Psychiatric No depression 11/25/2011 Neurologic No dizziness 11/25/2011 Neurologic No headache 0 11/25/2011 Dermatologic No rash 06/2012 Dermatologic No sores Musculoskeletal No stiffness 11/25/2011 Musculoskeletal No arthralgia(s) 11/25/2011 Gastrointestinal No anorexia 11/25/2011 Gastrointestinal No constipation 11/25/2011 Gastrointestinal No abdominal pain 11/25/2011 Respiratory No chest congestion 11/25/2011 Respiratory No chest tightness 11/25/2011 Respiratory No cough 06/2012 Cardiovascular No chest pain/pressure 11/25/2011 Cardiovascular No dyspnea 11/25/2011 Ears/Nose/Throat/Neck No headache 11/25/2011 Physical Exam Exam Name System Name It em Name Status Result Effective Dates Notes Full Exam - General 1994 Constitutional general appearance Overall: well developed 04/11/2018 None Full Exam - General 1994 Constitutional general appearance Overall: in no acute distress 04/11/2018 None Full Exam - General 1994 Constitutional general appearance Overall: well nourished 04/11/2018 None Full Exam - General 1994 Eyes pupils and irises Overall: pupils equal, round, reactive to light and accomodation 04/11/2018 None Full Exam - General 1994 Ears/Nose/Throat otoscopic exam Overall: external auditory canals clear 04/11/2018 None Full Exam - General 1994 Ears/Nose/Throat otoscopic exam Overall: tympanic membranes clear 04/11/2018 None Full Exam - General 1994 Ears/Nose/Throat oral cavity/pharynx/larynx Overall: oral mucosa clear 04/11/2018 None Full Exam - General 1994 Ears/Nose/Throat oral cavity/pharynx/larynx Overall: oropharyngeal mucosa clear 04/11/2018 None Full Exam - General 1994 Ears/Nose/Throat oral cavity/pharynx/larynx Overall: no masses 04/11/2018 None Full Exam - General 1994 Respiratory auscultation Overall: breath sounds clear bilaterally 04/11/2018 None Full Exam - General 1994 Respiratory respiratory effort/rhythm Overall: no retractions 04/11/2018 None Full Exam - General 1994 Respiratory respiratory effort/rhythm Overall: normal rate 04/11/2018 None Full Exam - General 1994 Cardiovascular auscultation of heart Overall: regular rate 04/11/2018 None Full Exam - General 1994 Cardiovascular auscultation of heart Overall: normal heart sounds 04/11/2018 None Full Exam - General 1994 Cardiovascular auscultation of heart Overall: no murmurs 04/11/2018 None Full Exam - General 1994 Chest/Breast breast and axillae palpation Overall: breasts non- tender 04/11/2018 palpable implants Full Exam - General 1994 Chest/Breast breast and axillae palpation Overall: no nipple discharge 04/11/2018 None Full Exam - General 1994 Abdomen abdominal exam Overall: no tenderness 04/11/2018 None Full Exam - General 1994 Abdomen abdominal exam Overall: normal bowel sounds 04/11/2018 None Full Exam - General 1994 Genitourinary uterus Overall: normal size 04/11/2018 None Full Exam - General 1994 Genitourinary cervix Overall: no discharge 04/11/2018 None Full Exam - General 1994 Genitourinary cervix Inspection: normal os 04/11/2018 None Full Exam - General 1994 Genitourinary labia and vagina Overall: normal hair distribution 04/11/2018 None Full Exam - General 1994 Genitourinary labia and vagina Overall: no lesions 04/11/2018 None Full Exam - General 1994 Genitourinary labia and vagina Vagina: no lesions present 04/11/2018 dryness/sclerotic appeara nce of tissue Full Exam - General 1994 Genitourinary adnexa/parametria Adnexa: normal size 04/11/2018 None Full Exam - General 1994 Genitourinary adnexa/parametria Adnexa: non-tender 04/11/2018 None Full Exam - General 1994 Genitourinary urethra Overall: no masses 04/11/2018 None Full Exam - General 1994 Genitourinary bladder Overall: no tenderness 04/11/2018 None Full Exam - General 1994 Musculoskeletal spine, ribs and pelvis Sacroiliac joints: tender left sacroiliac joint 04/11/2018 None Full Exam - General 1994 Musculoskeletal head and neck Overall: head atraumatic 04/11/2018 None Full Exam - General 1994 Musculoskeletal head and neck Overall: cervical spine benign 04/11/2018 None Full Exam - General 1994 Integument inspection of skin Overall: no rash, lesions 04/11/2018 None Full Exam - General 1994 Neurologic cranial nerves Overall: crainial nerves 2 - 12 grossly intact 04/11/2018 None Full Exam - General 1994 Psychiatric orientation/consciousness Overall: oriented to person, place and time 04/11/2018 None Full Exam - General 1994 Psychiatric mood and affect Overall: normal mood and affect 04/11/2018 None Full Exam - General 1994 Psychiatric mood and affect Mood: happy 04/11/2018 None Full Exam - General 1994 Constitutional general appearance Overall: well developed 03/17/2017 None Full Exam - General 1994 Constitutional general appearance Overall: in no acute distress 03/17/2017 None Full Exam - General 1994 Constitutional general appearance Overall: well nourished 03/17/2017 None Full Exam - General 1994 Eyes pupils and irises Overall: pupils equal, round, reactive to light and accomodation 03/17/2017 None Full Exam - General 1994 Ears/Nose/Throat otoscopic exam Overall: external auditory canals clear 03/17/2017 None Full Exam - General 1994 Ears/Nose/Throat otoscopic exam Overall: tympanic membranes clear 03/17/2017 None Full Exam - General 1994 Ears/Nose/Throat oral cavity/pharynx/larynx Overall: oral mucosa clear 03/17/2017 None Full Exam - General 1994 Ears/Nose/Throat oral cavity/pharynx/larynx Overall: oropharyngeal mucosa clear 03/17/2017 None Full Exam - General 1994 Ears/Nose/Throat oral cavity/pharynx/larynx Overall: no masses 03/17/2017 None Full Exam - General 1994 Respiratory auscultation Overall: breath sounds clear bilaterally 03/17/2017 None Full Exam - General 1994 Respiratory respiratory effort/rhythm Overall: no retractions 03/17/2017 None Full Exam - General 1994 Respiratory respiratory effort/rhythm Overall: normal rate 03/17/2017 None Full Exam - General 1994 Cardiovascular auscultation of heart Overall: regular rate 03/17/2017 None Full Exam - General 1994 Cardiovascular auscultation of heart Overall: normal heart sounds 03/17/2017 None Full Exam - General 1994 Cardiovascular auscultation of heart Overall: no murmurs 03/17/2017 None Full Exam - General 1994 Chest/Breast breast and axillae palpation Overall: breasts non- tender 03/17/2017 palpable implants Full Exam - General 1994 Chest/Breast breast and axillae palpation Overall: no nipple discharge 03/17/2017 None Full Exam - General 1994 Abdomen abdominal exam Overall: no tenderness 03/17/2017 None Full Exam - General 1994 Abdomen abdominal exam Overall: normal bowel sounds 03/17/2017 None Full Exam - General 1994 Genitourinary uterus Overall: normal size 03/17/2017 None Full Exam - General 1994 Genitourinary cervix Overall: no discharge 03/17/2017 None Full Exam - General 1994 Genitourinary cervix Inspection: normal os 03/17/2017 None Full Exam - General 1994 Genitourinary labia and vagina Overall: normal hair distribution 03/17/2017 None Full Exam - General 1994 Genitourinary labia and vagina Overall: no lesions 03/17/2017 None Full Exam - General 1994 Musculoskeletal spine, ribs and pelvis Sacroiliac joints: tender left sacroiliac joint 03/17/2017 None Full Exam - General 1994 Musculoskeletal head and neck Overall: head atraumatic 03/17/2017 None Full Exam - General 1994 Musculoskeletal head and neck Overall: cervical spine benign 03/17/2017 None Full Exam - General 1994 Integument inspection of skin Overall: no rash, lesions 03/17/2017 None Full Exam - General 1994 Neurologic cranial nerves Overall: crainial nerves 2 - 12 grossly intact 03/17/2017 None Full Exam - General 1994 Psychiatric orientation/consciousness Overall: oriented to person, place and time 03/17/2017 None Full Exam - General 1994 Psychiatric mood and affect Overall: normal mood and affect 03/17/2017 None Full Exam - General 1994 Psychiatric mood and affect Mood: happy 03/17/2017 None Full Exam - General 1994 Genitourinary adnexa/parametria Adnexa: normal size 03/17/2017 None Full Exam - General 1994 Genitourinary adnexa/parametria Adnexa: non-tender 03/17/2017 None Full Exam - General 1994 Genitourinary urethra Overall: no masses 03/17/2017 None Full Exam - General 1994 Genitourinary bladder Overall: no tenderness 03/17/2017 None Full Exam - General 1994 Genitourinary labia and vagina Vagina: no lesions present 03/17/2017 dryness/sclerotic appeara nce of tissue Comprehensive Medicare Full Exam Con stitutional general appearance Overall: well nourished 02/19/2016 None Comprehensive Medicare Full Exam Con stitutional general appearance Overall: well developed 02/19/2016 None Comprehensive Medicare Full Exam Con stitutional general appearance Overall: in no acute distress 02/19/2016 None Comprehensive Medicare Full Exam Psy chiatric orientation/consciousness Overall: oriented to person, place and time 02/19/2016 None Comprehensive Medicare Full Exam Psy chiatric orientation/consciousness Level of c onsciousness: alert 02/19/2016 None Comprehensive Medicare Full Exam Psy chiatric behavior/psychomotor activity Overall: no tics, normal psychomotor activity 02/19/2016 None Comprehensive [employer] Full Exam Psy chiatric mood and affect Overall: normal mood and affect 02/19/2016 None Comprehensive [employer] Full Exam Psy chiatric appearance Overall: well -groomed, good eye contact 02/19/2016 None Comprehensive [employer] Full Exam Psy chiatric speech Overall: normal q uality, no aphasia 02/19/2016 None Comprehensive [employer] Full Exam Psy chiatric speech Overall: normal q uality, quantity, rate 02/19/2016 None Comprehensive [employer] Full Exam Psy chiatric speech Overall: unimpair ed reading, writing 02/19/2016 None Comprehensive Medicare Full Exam Psy chiatric attention Overall: madhavi l digit recall and number repeating 02/19/2016 None Comprehensive [employer] Full Exam Psy chiatric thought Overall: normal form and content 02/19/2016 None Comprehensive [employer] Full Exam Psy chiatric cognition/memory Overall: immediate, recent, remote memory intact 02/19/2016 None Comprehensive [employer] Full Exam Psy chiatric cognition/memory Overall: normal concentration, intelligence 02/19/2016 None Comprehensive [employer] Full Exam Psy chiatric cognition/memory Concentration: normal serial 7's 02/19/2016 None Comprehensive [employer] Full Exam Psy chiatric judgment/insight Overall: judgment and insight intact 02/19/2016 None Comprehensive [employer] Full Exam Neurologi c cranial nerves Overall: cranial nerves 1-12 intact 02/19/2016 None [employer] Full Exam Eyes conjunctiva/eyelids Overall: conjunctiva clear 02/19/2016 None [employer] Full Exam Eyes pupils and irises Overall: pupils equal, round, reactive to light and accomodation 02/19/2016 None Comprehensive [employer] Full Exam Ear s/Nose/Throat oral cavity/pharynx/larynx Overall: oral mucosa clear 02/19/2016 None Comprehensive Medicare Full Exam Ear s/Nose/Throat lips/teeth/gingiva Overall: benign lips 02/19/2016 None Comprehensive Medicare Full Exam Ear s/Nose/Throat lips/teeth/gingiva Overall: normal dentition 02/19/2016 None Full Exam - General 1994 Constitutional general appearance Development: well developed 02/17/2016 None Full Exam - General 1994 Constitutional general appearance Development: appears stated age 0502/17/2016 None Full Exam - General 1994 Constitutional general appearance Hygiene/Attention to Grooming: good hygiene 02/17/2016 None Full Exam - General 1994 Eyes conjunctiva/eyelids Overall: conjunctiva clear 02/17/2016 None Full Exam - General 1994 Eyes conjunctiva/eyelids Overall: cornea clear 02/17/2016 None Full Exam - General 1994 Eyes conjunctiva/eyelids Overall: eyelids normal 02/17/2016 None Full Exam - General 1994 Eyes pupils and irises Overall: pupils equal, round, reactive to light and accomodation 02/17/2016 None Full Exam - General 1994 Ears/Nose/Throat otoscopic exam Overall: external auditory canals clear 02/17/2016 None Full Exam - General 1994 Ears/Nose/Throat otoscopic exam Overall: tympanic membranes clear 02/17/2016 None Full Exam - General 1994 Ears/Nose/Throat lips/teeth/gingiva Overall: benign lips 02/17/2016 None Full Exam - General 1994 Ears/Nose/Throat lips/teeth/gingiva Overall: normal dentition 02/17/2016 None Full Exam - General 1994 Ears/Nose/Throat oral cavity/pharynx/larynx Overall: oral mucosa clear 02/17/2016 None Full Exam - General 1994 Ears/Nose/Throat oral cavity/pharynx/larynx Overall: oropharyngeal mucosa clear 02/17/2016 None Full Exam - General 1994 Ears/Nose/Throat oral cavity/pharynx/larynx Overall: hypopharynx benign 02/17/2016 None Full Exam - General 1994 Ears/Nose/Throat oral cavity/pharynx/larynx Overall: no masses 02/17/2016 None Full Exam - General 1994 Respiratory auscultation Overall: breath sounds clear bilaterally 02/17/2016 None Full Exam - General 1994 Respiratory respiratory effort/rhythm Overall: no retractions 02/17/2016 None Full Exam - General 1994 Respiratory respiratory effort/rhythm Overall: normal rate 02/17/2016 None Full Exam - General 1994 Cardiovascular extremities Overall: no clubbing 02/17/2016 None Full Exam - General 1994 Cardiovascular auscultation of heart Overall: regular rate 02/17/2016 None Full Exam - General 1994 Cardiovascular auscultation of heart Overall: normal heart sounds 02/17/2016 None Full Exam - General 1994 Abdomen abdominal exam Overall: no tenderness 02/17/2016 None Full Exam - General 1994 Abdomen abdominal exam Overall: normal bowel sounds 02/17/2016 None Full Exam - General 1994 Integument inspection of skin Overall: few scattered moles, no gross abnormalities 02/17/2016 None Full Exam - General 1994 Neurologic deep tendon reflexes Overall: deep tendon reflexes intact 02/17/2016 None Full Exam - General 1994 Neurologic cranial nerves Overall: crainial nerves 2 - 12 grossly intact 02/17/2016 None Full Exam - General 1994 Psychiatric orientation/consciousness Overall: oriented to person, place and time 02/17/2016 None Full Exam - General 1994 Psychiatric mood and affect Overall: normal mood and affect 02/17/2016 None Full Exam - General 1994 Lymphatic neck nodes Overall: anterior cervical chain benign 02/17/2016 None Full Exam - General 1994 Lymphatic neck nodes Overall: posterior cervical chain benign 02/17/2016 None Full Exam - General 1994 Musculoskeletal gait and station Overall: normal gait 02/17/2016 None Full Exam - General 1994 Musculoskeletal gait and station Overall: normal station 02/17/2016 None Full Exam - General 1994 Constitutional general appearance Overall: well developed 03/31/2015 None Full Exam - General 1994 Constitutional general appearance Overall: in no acute distress 03/31/2015 None Full Exam - General 1994 Constitutional general appearance Overall: well nourished 03/31/2015 None Full Exam - General 1994 Eyes pupils and irises Overall: pupils equal, round, reactive to light and accomodation 03/31/2015 None Full Exam - General 1994 Ears/Nose/Throat otoscopic exam Overall: external auditory canals clear 03/31/2015 None Full Exam - General 1994 Ears/Nose/Throat otoscopic exam Overall: tympanic membranes clear 03/31/2015 None Full Exam - General 1994 Ears/Nose/Throat oral cavity/pharynx/larynx Overall: oral mucosa clear 03/31/2015 None Full Exam - General 1994 Ears/Nose/Throat oral cavity/pharynx/larynx Overall: oropharyngeal mucosa clear 03/31/2015 None Full Exam - General 1994 Ears/Nose/Throat oral cavity/pharynx/larynx Overall: no masses 03/31/2015 None Full Exam - General 1994 Respiratory auscultation Overall: breath sounds clear bilaterally 03/31/2015 None Full Exam - General 1994 Respiratory respiratory effort/rhythm Overall: no retractions 03/31/2015 None Full Exam - General 1994 Respiratory respiratory effort/rhythm Overall: normal rate 03/31/2015 None Full Exam - General 1994 Cardiovascular auscultation of heart Overall: regular rate 03/31/2015 None Full Exam - General 1994 Cardiovascular auscultation of heart Overall: normal heart sounds 03/31/2015 None Full Exam - General 1994 Cardiovascular auscultation of heart Overall: no murmurs 03/31/2015 None Full Exam - General 1994 Chest/Breast breast and axillae palpation Overall: breasts non- tender 03/31/2015 palpable implants Full Exam - General 1994 Chest/Breast breast and axillae palpation Overall: no nipple discharge 03/31/2015 None Full Exam - General 1994 Abdomen abdominal exam Overall: no tenderness 03/31/2015 None Full Exam - General 1994 Abdomen abdominal exam Overall: normal bowel sounds 03/31/2015 None Full Exam - General 1994 Genitourinary uterus Overall: normal size 03/31/2015 None Full Exam - General 1994 Genitourinary cervix Overall: no discharge 03/31/2015 None Full Exam - General 1994 Genitourinary cervix Inspection: normal os 03/31/2015 None Full Exam - General 1994 Genitourinary labia and vagina Overall: normal hair distribution 03/31/2015 None Full Exam - General 1994 Genitourinary labia and vagina Overall: no lesions 03/31/2015 None Full Exam - General 1994 Musculoskeletal head and neck Overall: head atraumatic 03/31/2015 None Full Exam - General 1994 Musculoskeletal head and neck Overall: cervical spine benign 03/31/2015 None Full Exam - General 1994 Integument inspection of skin Overall: no rash, lesions 03/31/2015 None Full Exam - General 1994 Neurologic cranial nerves Overall: crainial nerves 2 - 12 grossly intact 03/31/2015 None Full Exam - General 1994 Psychiatric orientation/consciousness Overall: oriented to person, place and time 03/31/2015 None Full Exam - General 1994 Psychiatric mood and affect Overall: normal mood and affect 03/31/2015 None Full Exam - General 1994 Psychiatric mood and affect Mood: happy 03/31/2015 None Full Exam - General 1994 Musculoskeletal spine, ribs and pelvis Sacroiliac joints: tender left sacroiliac joint 03/31/2015 None Full Exam - General 1994 Constitutional general appearance Overall: well developed 02/04/2014 None Full Exam - General 1994 Constitutional general appearance Overall: in no acute distress 02/04/2014 None Full Exam - General 1994 Constitutional general appearance Overall: well nourished 02/04/2014 None Full Exam - General 1994 Eyes pupils and irises Overall: pupils equal, round, reactive to light and accomodation 02/04/2014 None Full Exam - General 1994 Ears/Nose/Throat otoscopic exam Overall: external auditory canals clear 02/04/2014 None Full Exam - General 1994 Ears/Nose/Throat otoscopic exam Overall: tympanic membranes clear 02/04/2014 None Full Exam - General 1994 Ears/Nose/Throat oral cavity/pharynx/larynx Overall: oral mucosa clear 02/04/2014 None Full Exam - General 1994 Ears/Nose/Throat oral cavity/pharynx/larynx Overall: oropharyngeal mucosa clear 02/04/2014 None Full Exam - General 1994 Ears/Nose/Throat oral cavity/pharynx/larynx Overall: no masses 02/04/2014 None Full Exam - General 1994 Respiratory auscultation Overall: breath sounds clear bilaterally 02/04/2014 None Full Exam - General 1994 Respiratory respiratory effort/rhythm Overall: no retractions 02/04/2014 None Full Exam - General 1994 Respiratory respiratory effort/rhythm Overall: normal rate 02/04/2014 None Full Exam - General 1994 Cardiovascular auscultation of heart Overall: regular rate 02/04/2014 None Full Exam - General 1994 Cardiovascular auscultation of heart Overall: normal heart sounds 02/04/2014 None Full Exam - General 1994 Cardiovascular auscultation of heart Overall: no murmurs 02/04/2014 None Full Exam - General 1994 Chest/Breast breast and axillae palpation Overall: breasts non- tender 02/04/2014 palpable implants Full Exam - General 1994 Chest/Breast breast and axillae palpation Overall: no nipple discharge 02/04/2014 None Full Exam - General 1994 Abdomen abdominal exam Overall: no tenderness 02/04/2014 None Full Exam - General 1994 Abdomen abdominal exam Overall: normal bowel sounds 02/04/2014 None Full Exam - General 1994 Genitourinary uterus Overall: normal size 02/04/2014 None Full Exam - General 1994 Genitourinary cervix Overall: no discharge 02/04/2014 None Full Exam - General 1994 Genitourinary cervix Inspection: normal os 02/04/2014 None Full Exam - General 1994 Genitourinary labia and vagina Overall: normal hair distribution 02/04/2014 None Full Exam - General 1994 Genitourinary labia and vagina Overall: no lesions 02/04/2014 None Full Exam - General 1994 Musculoskeletal head and neck Overall: head atraumatic 02/04/2014 None Full Exam - General 1994 Musculoskeletal head and neck Overall: cervical spine benign 02/04/2014 None Full Exam - General 1994 Psychiatric orientation/consciousness Overall: oriented to person, place and time 02/04/2014 None Full Exam - General 1994 Psychiatric mood and affect Overall: normal mood and affect 02/04/2014 None Full Exam - General 1994 Psychiatric mood and affect Mood: happy 02/04/2014 None Full Exam - General 1994 Integument inspection of skin Overall: no rash, lesions 02/04/2014 None Full Exam - General 1994 Neurologic cranial nerves Overall: crainial nerves 2 - 12 grossly intact 02/04/2014 None Full Exam - General 1994 Constitutional general appearance Overall: well developed 11/29/2013 None Full Exam - General 1994 Constitutional general appearance Overall: in no acute distress 11/29/2013 None Full Exam - General 1994 Constitutional general appearance Overall: well nourished 11/29/2013 None Full Exam - General 1994 Eyes pupils and irises Overall: pupils equal, round, reactive to light and accomodation 11/29/2013 None Full Exam - General 1994 Ears/Nose/Throat oral cavity/pharynx/larynx Overall: oral mucosa clear 11/29/2013 None Full Exam - General 1994 Respiratory auscultation Overall: breath sounds clear bilaterally 11/29/2013 None Full Exam - General 1994 Respiratory respiratory effort/rhythm Overall: no retractions 11/29/2013 None Full Exam - General 1994 Respiratory respiratory effort/rhythm Overall: normal rate 11/29/2013 None Full Exam - General 1994 Cardiovascular auscultation of heart Overall: regular rate 11/29/2013 None Full Exam - General 1994 Cardiovascular auscultation of heart Overall: normal heart sounds 11/29/2013 None Full Exam - General 1994 Cardiovascular auscultation of heart Overall: no murmurs 11/29/2013 None Full Exam - General 1994 Chest/Breast breast and axillae palpation Overall: breasts non- tender 11/29/2013 palpable implants Full Exam - General 1994 Chest/Breast breast and axillae palpation Overall: no nipple discharge 11/29/2013 None Full Exam - General 1994 Abdomen abdominal exam Overall: no tenderness 11/29/2013 None Full Exam - General 1994 Abdomen abdominal exam Overall: normal bowel sounds 11/29/2013 None Full Exam - General 1994 Genitourinary uterus Overall: normal size 11/29/2013 None Full Exam - General 1994 Genitourinary cervix Inspection: normal os 11/29/2013 None Full Exam - General 1994 Genitourinary labia and vagina Overall: normal hair distribution 11/29/2013 None Full Exam - General 1994 Genitourinary labia and vagina Overall: no lesions 11/29/2013 None Full Exam - General 1994 Musculoskeletal head and neck Overall: head atraumatic 11/29/2013 None Full Exam - General 1994 Musculoskeletal head and neck Overall: cervical spine benign 11/29/2013 None Full Exam - General 1994 Psychiatric orientation/consciousness Overall: oriented to person, place and time 11/29/2013 None Full Exam - General 1994 Psychiatric mood and affect Overall: normal mood and affect 11/29/2013 None Full Exam - General 1994 Psychiatric mood and affect Mood: happy 11/29/2013 None Full Exam - General 1994 Genitourinary cervix Cervical discharge: bloody 11/29/2013 None Full Exam - General 1994 Constitutional general appearance Development: well developed 08/27/2013 None Full Exam - General 1994 Constitutional general appearance Hygiene/Attention to Grooming: good hygiene 08/27/2013 None Full Exam - General 1994 Eyes conjunctiva/eyelids Overall: conjunctiva clear 08/27/2013 None Full Exam - General 1994 Eyes conjunctiva/eyelids Overall: cornea clear 08/27/2013 None Full Exam - General 1994 Eyes conjunctiva/eyelids Overall: eyelids normal 08/27/2013 None Full Exam - General 1994 Eyes pupils and irises Overall: pupils equal, round, reactive to light and accomodation 08/27/2013 None Full Exam - General 1994 Ears/Nose/Throat otoscopic exam Overall: external auditory canals clear 08/27/2013 None Full Exam - General 1994 Ears/Nose/Throat otoscopic exam Overall: tympanic membranes clear 08/27/2013 None Full Exam - General 1994 Ears/Nose/Throat lips/teeth/gingiva Overall: benign lips 08/27/2013 None Full Exam - General 1994 Ears/Nose/Throat lips/teeth/gingiva Overall: normal dentition 08/27/2013 None Full Exam - General 1995 Ears/Nose/Throat oral cavity/pharynx/larynx Overall: hypopharynx benign 08/27/2013 None Full Exam - General 1995 Ears/Nose/Throat oral cavity/pharynx/larynx Overall: no masses 08/27/2013 None Full Exam - General 1995 Ears/Nose/Throat oral cavity/pharynx/larynx Overall: oral mucosa clear 08/27/2013 None Full Exam - General 1994 Ears/Nose/Throat oral cavity/pharynx/larynx Overall: oropharyngeal mucosa clear 08/27/2013 None Full Exam - General 1995 Constitutional general appearance Development: appears older than stated age 1108/27/2013 None Full Exam - General 1995 Constitutional general appearance Development: appears stated age 1108/27/2013 None Full Exam - General 1994 Respiratory auscultation Overall: breath sounds clear bilaterally 08/27/2013 None Full Exam - General 1994 Respiratory respiratory effort/rhythm Overall: no retractions 08/27/2013 None Full Exam - General 1994 Respiratory respiratory effort/rhythm Overall: normal rate 08/27/2013 None Full Exam - General 1994 Cardiovascular extremities Overall: no clubbing 08/27/2013 None Full Exam - General 1994 Cardiovascular auscultation of heart Overall: normal heart sounds 08/27/2013 None Full Exam - General 1994 Cardiovascular auscultation of heart Overall: regular rate 08/27/2013 None Full Exam - General 1994 Abdomen abdominal exam Overall: no tenderness 08/27/2013 None Full Exam - General 1994 Abdomen abdominal exam Overall: normal bowel sounds 08/27/2013 None Full Exam - General 1994 Integument inspection of skin Overall: few scattered moles, no gross abnormalities 08/27/2013 None Full Exam - General 1994 Neurologic deep tendon reflexes Overall: deep tendon reflexes intact 08/27/2013 None Full Exam - General 1994 Neurologic cranial nerves Overall: crainial nerves 2 - 12 grossly intact 08/27/2013 None Full Exam - General 1994 Psychiatric orientation/consciousness Overall: oriented to person, place and time 08/27/2013 None Full Exam - General 1994 Psychiatric mood and affect Overall: normal mood and affect 08/27/2013 None Full Exam - General 1994 Constitutional general appearance Overall: well developed 06/28/2013 None Full Exam - General 1994 Constitutional general appearance Overall: in no acute distress 06/28/2013 None Full Exam - General 1994 Constitutional general appearance Overall: well nourished 06/28/2013 None Full Exam - General 1994 Psychiatric orientation/consciousness Overall: oriented to person, place and time 06/28/2013 None Full Exam - General 1994 Integument inspection of skin Location: left leg 06/28/2013 thigh Full Exam - General 1994 Integument inspection of skin Pigmentation: erythematous 06/28/2013 None Full Exam - General 1994 Constitutional general appearance Overall: well developed 01/10/2013 None Full Exam - General 1994 Constitutional general appearance Overall: in no acute distress 01/10/2013 None Full Exam - General 1994 Constitutional general appearance Overall: well nourished 01/10/2013 None Full Exam - General 1994 Eyes pupils and irises Overall: pupils equal, round, reactive to light and accomodation 01/10/2013 None Full Exam - General 1994 Ears/Nose/Throat otoscopic exam Overall: external auditory canals clear 01/10/2013 None Full Exam - General 1995 Ears/Nose/Throat otoscopic exam Overall: tympanic membranes clear 01/10/2013 None Full Exam - General 1995 Ears/Nose/Throat oral cavity/pharynx/larynx Overall: oral mucosa clear 01/10/2013 None Full Exam - General 1995 Ears/Nose/Throat oral cavity/pharynx/larynx Overall: oropharyngeal mucosa clear 01/10/2013 None Full Exam - General 1994 Ears/Nose/Throat oral cavity/pharynx/larynx Overall: no masses 01/10/2013 None Full Exam - General 1994 Respiratory auscultation Overall: breath sounds clear bilaterally 01/10/2013 None Full Exam - General 1994 Respiratory respiratory effort/rhythm Overall: no retractions 01/10/2013 None Full Exam - General 1994 Respiratory respiratory effort/rhythm Overall: normal rate 01/10/2013 None Full Exam - General 1994 Cardiovascular auscultation of heart Overall: regular rate 01/10/2013 None Full Exam - General 1994 Cardiovascular auscultation of heart Overall: normal heart sounds 01/10/2013 None Full Exam - General 1994 Cardiovascular auscultation of heart Overall: no murmurs 01/10/2013 None Full Exam - General 1994 Abdomen abdominal exam Overall: no tenderness 01/10/2013 None Full Exam - General 1994 Abdomen abdominal exam Overall: normal bowel sounds 01/10/2013 None Full Exam - General 1994 Genitourinary uterus Overall: normal size 01/10/2013 None Full Exam - General 1994 Genitourinary cervix Overall: no discharge 01/10/2013 None Full Exam - General 1994 Genitourinary cervix Inspection: normal os 01/10/2013 None Full Exam - General 1994 Genitourinary labia and vagina Overall: normal hair distribution 01/10/2013 None Full Exam - General 1994 Genitourinary labia and vagina Overall: no lesions 01/10/2013 None Full Exam - General 1994 Musculoskeletal head and neck Overall: head atraumatic 01/10/2013 None Full Exam - General 1994 Musculoskeletal head and neck Overall: cervical spine benign 01/10/2013 None Full Exam - General 1994 Psychiatric orientation/consciousness Overall: oriented to person, place and time 01/10/2013 None Full Exam - General 1994 Psychiatric mood and affect Overall: normal mood and affect 01/10/2013 None Full Exam - General 1994 Psychiatric mood and affect Mood: happy 01/10/2013 None Full Exam - General 1994 Chest/Breast breast and axillae palpation Overall: breasts non- tender 01/10/2013 palpable implants Full Exam - General 1994 Chest/Breast breast and axillae palpation Overall: no nipple discharge 01/10/2013 None Full Exam - General 1994 Constitutional general appearance Overall: well nourished 11/25/2011 None Full Exam - General 1994 Constitutional general appearance Overall: well developed 11/25/2011 None Full Exam - General 1994 Constitutional general appearance Overall: in no acute distress 11/25/2011 None Full Exam - General 1994 Eyes pupils and irises Overall: pupils equal, round, reactive to light and accomodation 11/25/2011 None Full Exam - General 1994 Ears/Nose/Throat oral cavity/pharynx/larynx Overall: oropharyngeal mucosa clear 11/25/2011 None Full Exam - General 1995 Ears/Nose/Throat oral cavity/pharynx/larynx Overall: no masses 11/25/2011 None Full Exam - General 1995 Ears/Nose/Throat oral cavity/pharynx/larynx Overall: oral mucosa clear 11/25/2011 None Full Exam - General 1994 Ears/Nose/Throat otoscopic exam Overall: tympanic membranes clear 11/25/2011 None Full Exam - General 1994 Ears/Nose/Throat otoscopic exam Overall: external auditory canals clear 11/25/2011 None Full Exam - General 1994 Respiratory auscultation Overall: breath sounds clear bilaterally 11/25/2011 None Full Exam - General 1994 Respiratory respiratory effort/rhythm Overall: normal rate 11/25/2011 None Full Exam - General 1994 Respiratory respiratory effort/rhythm Overall: no retractions 11/25/2011 None Full Exam - General 1994 Cardiovascular auscultation of heart Overall: regular rate 11/25/2011 None Full Exam - General 1994 Cardiovascular auscultation of heart Overall: normal heart sounds 11/25/2011 None Full Exam - General 1994 Cardiovascular auscultation of heart Overall: no murmurs 11/25/2011 None Full Exam - General 1994 Psychiatric orientation/consciousness Overall: oriented to person, place and time 11/25/2011 None Full Exam - General 1994 Psychiatric mood and affect Mood: happy 11/25/2011 None Full Exam - General 1994 Psychiatric mood and affect Overall: normal mood and affect 11/25/2011 None Full Exam - General 1994 Musculoskeletal head and neck Overall: cervical spine benign 11/25/2011 None Full Exam - General 1994 Musculoskeletal head and neck Overall: head atraumatic 11/25/2011 None Full Exam - General 1994 Abdomen abdominal exam Overall: no tenderness 11/25/2011 None Full Exam - General 1994 Abdomen abdominal exam Overall: normal bowel sounds 11/25/2011 None Full Exam - General 1994 Genitourinary uterus Overall: normal size 11/25/2011 None Full Exam - General 1994 Genitourinary cervix Overall: no discharge 11/25/2011 None Full Exam - General 1994 Genitourinary cervix Inspection: normal os 11/25/2011 None Full Exam - General 1994 Genitourinary labia and vagina Overall: normal hair distribution 11/25/2011 None Full Exam - General 1994 Genitourinary labia and vagina Overall: no lesions 11/25/2011 None Procedures Procedure Codes Date ADMIN INFLUENZA VIRU S VAC CPT-4: G0008 08/17/2017 FLU VACC PRSV FREE I NC ANTIG CPT-4: 95102 08/17/2017 CA SCREEN;PELVIC/GEETA AST EXAM CPT-4: G0101 03/17/2017 INITIAL PREVENTIVE EXAM CPT-4: G0402 02/19/2016 ADMIN PNEUMOCOCCAL V ACCINE SNOMED CT: 93843871 CPT-4: G0009 02/19/2016 PNEUMOCOCCAL VACC 13 MARLEN IM Formatting Model/CDA Sections, Assigned to SNOMED CT: 51038883 CPT-4: 98508Ffaolfy 02/19/2016 TRIAMCINOLONE ACET I [place] NOS CPT-4: J3301 03/31/2015 THER/PROPH/DIAG INJ SC/IM CPT-4: 41755 03/31/2015 SPECIMEN HANDLING OF FICE-LAB CPT-4: 57374 03/31/2015 Vital Signs Date Vital 04/11/2018 Blood Pressure 1: 132/80 Code: 8480-6 BMI: 23.6 Code: 31497-9 Heart Rate 1: 63 bpm Height: 5'9" SpO2: 97% Weight: 159 lbs 11 o z 03/17/2017 Blood Pressure 1: 136/78 Code: 8480-6 BMI: 22.7 Code: 84085-8 Heart Rate 1: 57 bpm Height: 5'9" SpO2: 98% Weight: 154 lbs 02/19/2016 Blood Pressure 1: 124/88 Code: 8480-6 BMI: 22.7 Code: 02017-2 Heart Rate 1: 72 bpm Height: 5'9" SpO2: 96% Waist Measure (cm): 89 cm Weight: 154 lbs 02/17/2016 Blood Pressure 1: 118/78 Code: 8480-6 Heart Rate 1: 61 bpm Height: 5'9" SpO2: 98% 03/31/2015 Blood Pressure 1: 138/68 Code: 8480-6 BMI: 23.0 Code: 49939-3 Heart Rate 1: 68 bpm Height: 5'9" Weight: 156 lbs 02/04/2014 Blood Pressure 1: 128/80 Code: 8480-6 BMI: 22.4 Code: 41865-2 Heart Rate 1: 60 bpm Height: 5'9" Weight: 152 lbs 11/29/2013 Blood Pressure 1: 102/64 Code: 8480-6 Heart Rate 1: 70 bpm SpO2: 97% Weight: 151 lbs 08/27/2013 Blood Pressure 1: 138/80 Code: 8480-6 BMI: 22.3 Code: 26491-2 Heart Rate 1: 68 bpm Height: 5'9" Weight: 151 lbs 06/28/2013 Blood Pressure 1: 112/74 Code: 8480-6 BMI: 22.3 Code: 81449-4 Heart Rate 1: 72 bpm Height: 5'9" Weight: 151 lbs 01/10/2013 Blood Pressure 1: 102/64 Code: 8480-6 BMI: 22.4 Code: 01960-2 Heart Rate 1: 64 bpm Height: 5'9" Weight: 152 lbs 11/25/2011 Blood Pressure 1: 102/76 Code: 8480-6 BMI: 23.0 Code: 23736-2 Heart Rate 1: 68 bpm Height: 5'9" Respiratory Rate: 16 bpm Weight: 156 lbs Functional Status No Functional Status data History of Present Illness Symptom Name Status Resu lt Effective Date Notes well woman exam (65+ years) Lifestyle regular seatbelt use 04/11/2018 None well woman exam (65+ years) Lifestyle family supportive 04/11/2018 None well woman exam (65+ years) Lifestyle satisfactory work/mcc experience 04/11/2018 None well woman exam (65+ years) Lifestyle normal sleep patterns 04/11/2018 None well woman exam (65+ years) Lifestyle abnormal amount of stress 04/11/2018 recent illness of spouse well woman exam (65+ years) Lifestyle satisfactory marriage/partner relationship 04/11/2018 None well woman exam (65+ years) Obstetri ramses History 2 total pregnancies 04/11/2018 None well woman exam (65+ years) Nutritio n and Exercise normal weight 04/11/2018 None well woman exam (65+ years) Nutritio n and Exercise balanced nutrition 04/11/2018 None well woman exam (65+ years) Nutritio n and Exercise regular diet 04/11/2018 None well woman exam (65+ years) Health Guidanc e self-breast exam 04/11/2018 None well woman exam (65+ years) Health Guidanc e regular mammogram 04/11/2018 None well woman exam (65+ years) Health Guidanc e regular exercise 04/11/2018 None well woman exam (65+ years) Pap Smear last normal performed on ----201604/11/2018 None well woman exam (65+ years) Pap Smear last normal performed on 201403/17/2017 None well woman exam (65+ years) Pap Smear normal results 03/17/2017 None well woman exam (65+ years) Obstetri ramses History 2 total pregnancies 03/17/2017 None well woman exam (65+ years) Nutritio n and Exercise normal weight 03/17/2017 None well woman exam (65+ years) Nutritio n and Exercise balanced nutrition 03/17/2017 None well woman exam (65+ years) Nutritio n and Exercise regular diet 03/17/2017 None well woman exam (65+ years) Lifestyle regular seatbelt use 03/17/2017 None well woman exam (65+ years) Lifestyle family supportive 03/17/2017 None well woman exam (65+ years) Lifestyle satisfactory work/mcc experience 03/17/2017 None well woman exam (65+ years) Lifestyle normal sleep patterns 03/17/2017 None well woman exam (65+ years) Lifestyle abnormal amount of stress 03/17/2017 recent illness of spouse well woman exam (65+ years) Lifestyle satisfactory marriage/partner relationship 03/17/2017 None well woman exam (65+ years) Health Guidanc e self-breast exam 03/17/2017 None well woman exam (65+ years) Health Guidanc e regular mammogram 03/17/2017 None well woman exam (65+ years) Health Guidanc e regular exercise 03/17/2017 None Annual Medicare Wellness Exam Alcohol Use does not drink any alcohol 02/19/2016 she occ drinks wine Annual Medicare Wellness Exam Aspirin Use yes 02/19/2016 81 mg Annual Medicare Wellness Exam Blood Pressure (self reported) borderline (120/80 - 139/89) 016 None Annual Medicare Wellness Exam Choles terol (self reported) desireable (below 200) 02/19/2016 None Annual Medicare Wellness Exam Deprcolt jessie (last 6 months) almost never 02/19/2016 None Annual Medicare Wellness Exam Descri be Your Health good 02/19/2016 she is h aving low back pain Annual Medicare Wellness Exam Exerci se Habits exercises 7 days per week 02/19/2016 walk dogs daily Annual Medicare Wellness Exam Gayle landers Stress usually estefania effectively 02/19/2016 None Annual Medicare Wellness Exam Hours of Sleep 8 02/19/2016 she reports wearing invisilgn at night and reports that she snores really bad on her back. Annual Medicare Wellness Exam Intera ction with Friends yes 02/19/2016 None Annual Medicare Wellness Exam Intere sts & Pleasure almost all of the time 02/19/2016 None Annual Medicare Wellness Exam Life S atisfaction satisfied 02/19/2016 Non e Annual Medicare Wellness Exam Motor Vehicle Safety always fastens seat belt: _ 02/19/20 16 None Annual Medicare Wellness Exam Nutrition servings of high fiber / whole grain per day: _ 02/19/2016 None Annual Medicare Wellness Exam Nutrition servings of vegetables / fruit per day: _ 02/19/2016 None Annual Medicare Wellness Exam Smokin g and Tobacco Use non smoker 02/19/2016 No ne Annual Medicare Wellness Exam Social & Emotional Support always 02/19/2016 None Annual Medicare Wellness Exam Stress some of the time 02/19/2016 None Annual Medicare Wellness Exam Sun Exposure protects skin when outdoors: _ 02/19/2016 yes she works out in the yard a lot well woman exam (40-65 years) Pap Smear last normal performed on 201402/17/2016 None well woman exam (40-65 years) Contro l none 02/17/2016 None well woman exam (40-65 years) Nutrit ion and Exercise normal weight 02/17/2016 None well woman exam (40-65 years) Cardio vascular Risk Factors dyslipidemia 02/17/2016 None well woman exam (40-65 years) Health Guidance baseline mammogram 02/17/2016 None well woman exam (40-65 years) Sexual Activity is monogamous 02/17/2016 None well woman exam (40-65 years) Immunization s influenza vaccine (annually over 50 y.o.) 02/17/2016 None well woman exam (40-65 years) Pap Smear last normal performed on 02-04-2015 03/31/2015 None well woman exam (40-65 years) Menstr ual History post-menopausal 03/31/2015 None well woman exam (40-65 years) Lifestyle no history of physical abuse 03/31/2015 None well woman exam (40-65 years) Lifestyle regular seatbelt use 03/31/2015 None well woman exam (40-65 years) Lifestyle family supportive of relationship 03/31/2015 None well woman exam (40-65 years) Lifestyle normal amount of stress 03/31/2015 None well woman exam (40-65 years) Lifestyle satisfactory marriage/partner relationship 03/31/2015 None well woman exam (40-65 years) Contro l menopause 03/31/2015 None well woman exam (40-65 years) Nutrit ion and Exercise normal weight 03/31/2015 None well woman exam (40-65 years) Nutrit ion and Exercise moderate exercise 03/31/2015 None well woman exam (40-65 years) Obstet rical History 2 total pregnancies 03/31/2015 None well woman exam (40-65 years) Obstet rical History 2 full term 03/31/2015 None well woman exam (40-65 years) Obstet rical History 2 living children 03/31/2015 None well woman exam (40-65 years) Cardio vascular Risk Factors hypertension 03/31/2015 None well woman exam (40-65 years) Cardio vascular Risk Factors dyslipidemia 03/31/2015 None well woman exam (40-65 years) Health Guidance self-breast exam 03/31/2015 None well woman exam (40-65 years) Health Guidance regular exercise 03/31/2015 None well woman exam (40-65 years) Health Guidance depression symptoms 03/31/2015 None well woman exam (40-65 years) Sexual Activity is monogamous 03/31/2015 None leg pain/sciatica Location right leg sciatica 03/31/2015 None leg pain/sciatica Quality dull pain 03/31/2015 None leg pain/sciatica Onset and Resolution ongoing 03/31/2015 None leg pain/sciatica Onset of Symptom _ months ago 03/31/2015 None leg pain/sciatica Pertinent Findings female 03/31/2015 None leg pain/sciatica Pertinent Findings sleep disturbances 03/31/2015 uses ice in the night leg pain/sciatica Pertinent Findings pain with movement 03/31/2015 None leg pain/sciatica Limitation on Activities allows weight bearing activity 03/31/2015 None leg pain/sciatica Severity moderate 03/31/2015 None well woman exam (40-65 years) Menstr ual History post-menopausal 02/04/2014 None well woman exam (40-65 years) Lifestyle no history of physical abuse 02/04/2014 None well woman exam (40-65 years) Lifestyle regular seatbelt use 02/04/2014 None well woman exam (40-65 years) Lifestyle family supportive of relationship 02/04/2014 None well woman exam (40-65 years) Lifestyle normal amount of stress 02/04/2014 None well woman exam (40-65 years) Lifestyle satisfactory marriage/partner relationship 02/04/2014 None well woman exam (40-65 years) Contro l menopause 02/04/2014 None well woman exam (40-65 years) Nutrit ion and Exercise normal weight 02/04/2014 None well woman exam (40-65 years) Nutrit ion and Exercise moderate exercise 02/04/2014 None well woman exam (40-65 years) Obstet rical History 2 total pregnancies 02/04/2014 None well woman exam (40-65 years) Obstet rical History 2 full term 02/04/2014 None well woman exam (40-65 years) Obstet rical History 2 living children 02/04/2014 None well woman exam (40-65 years) Cardio vascular Risk Factors hypertension 02/04/2014 None well woman exam (40-65 years) Cardio vascular Risk Factors dyslipidemia 02/04/2014 None well woman exam (40-65 years) Health Guidance self-breast exam 02/04/2014 None well woman exam (40-65 years) Health Guidance regular exercise 02/04/2014 None well woman exam (40-65 years) Health Guidance depression symptoms 02/04/2014 None well woman exam (40-65 years) Sexual Activity is monogamous 02/04/2014 None vaginal bleeding Onset of Symptom 1 days ago 11/29/2013 None vaginal bleeding Severity mild 11/29/2013 None vaginal bleeding Quality acute 11/29/2013 None vaginal bleeding Onset and Resolution ongoing 11/29/2013 None vaginal bleeding Limitation on Activities does not limit activities 11/29/2013 None vaginal bleeding Pertinent Findings Denies bladder infection 11/29/2013 None vaginal bleeding Pertinent Findings Denies fever 11/29/2013 None vaginal bleeding Pertinent Findings Denies pelvic pain 11/29/2013 None vaginal bleeding Triggers no known associated factors 11/29/2013 on hormones, no bleeding x 10 years dizziness Quality acute 08/27/2013 None dizziness Quality interm ittent 08/27/2013 None dizziness Quality feelin gs of unsteadiness 08/27/2013 None abdominal pain Location in the RUQ 08/27/2013 None abdominal pain Quality a manju 08/27/2013 None abdominal pain Quality i ntermittent 08/27/2013 happens randomly. not nec essarily after she eats. Had recent EGD. dizziness Onset and Resolution ongoing 08/27/2013 has happened about 6 time s in the last 6 months. dizziness Pertinent Findings Denies focal weakness 08/27/2013 None dizziness Triggers no kn own associated factors 08/27/2013 None dizziness Alleviating Factors rest 08/27/2013 sitting and resting will help alleviate some but not all symptoms. arthropod bite Quality a cute 06/28/2013 None arthropod bite Location on the left leg 06/28/2013 pulled a small tick off o f her left thigh yesterday. area has swollen since. arthropod bite Quality s wollen 06/28/2013 reddened. 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 01/10/2013 None well woman exam (40-65 years) Lifestyle no history of physical abuse 01/10/2013 None well woman exam (40-65 years) Lifestyle regular seatbelt use 01/10/2013 None well woman exam (40-65 years) Lifestyle family supportive of relationship 01/10/2013 None well woman exam (40-65 years) Lifestyle normal amount of stress 01/10/2013 None well woman exam (40-65 years) Lifestyle satisfactory marriage/partner relationship 01/10/2013 None well woman exam (40-65 years) Contro l menopause 01/10/2013 None well woman exam (40-65 years) Nutrit ion and Exercise normal weight 01/10/2013 None well woman exam (40-65 years) Nutrit ion and Exercise moderate exercise 01/10/2013 None well woman exam (40-65 years) Obstet rical History 2 total pregnancies 01/10/2013 None well woman exam (40-65 years) Obstet rical History 2 full term 01/10/2013 None well woman exam (40-65 years) Obstet rical History 2 living children 01/10/2013 None well woman exam (40-65 years) Cardio vascular Risk Factors hypertension 01/10/2013 None well woman exam (40-65 years) Cardio vascular Risk Factors dyslipidemia 01/10/2013 None well woman exam (40-65 years) Health Guidance self-breast exam 01/10/2013 None well woman exam (40-65 years) Health Guidance regular exercise 01/10/2013 None well woman exam (40-65 years) Health Guidance depression symptoms 01/10/2013 None well woman exam (40-65 years) Sexual Activity is monogamous 01/10/2013 None Pap smear abnormality Onset and Resolution ongoing 11/25/2011 None Pap smear abnormality Quality atypia 11/25/2011 None Pap smear abnormality Onset of Symptom 4-5 months ago 11/25/2011 None Pap smear abnormality Significant Me dical Conditions prior abnormal pap smear 11/25/2011 None Pap smear abnormality Pertinent Findings Denies edema 11/25/2011 None Pap smear abnormality Pertinent Findings Denies lymphadenopathy 11/25/2011 None Pap smear abnormality Pertinent Findings Denies oliguria 11/25/2011 None Pap smear abnormality Pertinent Findings Denies pelvic pain 11/25/2011 None Pap smear abnormality Pertinent Findings Denies urinary urgency 11/25/2011 None Advance Directives No Advance Directive data Encounters Encounter Performer Loca tion Codes Date ([id number]) [id number] EST. P ATIENT, LEVEL IV Diagnosis: Atrophy of thyroid (acquired)[ICD10: E03.4] Diagnosis: Chronic atrial fibrillation[ICD10: I48.2] Heidi Christy MD, [facility] CPT-4: 11975 04/11/2018 ([id number]) 42812 EST. P ATIENT, LEVEL IV Diagnosis: Encounter for general adult medical examination without abnormal findings[ICD10: Z00.00] Diagnosis: Hypothyroidism, unspecified[ICD10: E03.9] Diagnosis: Hyperlipidemia, unspecified[ICD10: E78.5] Suzy Christy MD, [facility] CPT-4: 49897 02/17/2016 ([id number]) PREV VISIT E ST AGE 40-64 Diagnosis: Well woman exam with routine gynecological exam[ICD9: V72.31] Suzy Christy MD, [facility] CPT-4: 04694 03/31/2015 ([id number]) PREV VISIT E ST AGE 40-64 Diagnosis: ROUTINE GYNE EXAM[ICD9: V72.31] Heidi Christy MD, [facility] CPT-4: 36946 02/04/2014 ([id number]) 19253 EST. P ATIENT, LEVEL IV Diagnosis: Vaginal bleeding[ICD9: 623.8] Suzy Christy MD, [facility] CPT- 4: 52471 11/29/2013 ([id number]) 21832 EST. P ATIENT, LEVEL IV Diagnosis: Abdominal pain[ICD9: 789.00] Diagnosis: Dizziness[ICD9: 780.4] Diagnosis: Weakness[ICD9: 780.79] Heidi Christy MD, [facility] CPT-4: 08225 08/27/2013 ([id number]) 94814 EST. P ATIENT, LEVEL III Diagnosis: Tick bite[ICD9: 919.4] [facility] CPT-4: 45512 06/28/2013 ([id number]) PREV VISIT E ST AGE 40-64 Diagnosis: Well woman exam with routine gynecological exam[ICD9: V72.31] [facility] CPT-4: 59218 01/10/2013 [id number] EST. PATIENT, LEVEL IV Diagnosis: Abnormal Pap smear of cervix[ICD9: 795.00] Diagnosis: Abnormal weight gain[ICD9: 783.1] [facility] CPT-4: 20726 11/25/2011 Plan of Care Planned Activity Notes C odes Status Date Visit Plan: Hypothyroidism - pt wit h chronic hypothyroidism, continue with current medication, will monitor pt to signs or symptoms of lack of adequate supplementation. Pt is to continue with current dose of medication unless directed otherwise. Check labs at regular intervals wither q 3 months or q 6 months based on previous levels of control. Chronic Afib - rate now controlled with the flecainide - continue with this as well as blood thinners. Pt to call if any acute change in symptoms occurs. Well Adult Female - exam completed. Pap and breast exam completed. Pt will be called with results of her testing. She was advised to continue with yearly annual exams. Call if any abnormal gynecologic issues during the next year, otherwise, RTC yearly or prn. 04/11/2018 Visit Plan: Well Adult Female - exa m completed. Pap and breast exam completed. Pt will be called with results of her testing. She was advised to continue with yearly annual exams. Call if any abnormal gynecologic i ssues during the next year, otherwise, RTC yearly or prn. Hypothyroidism - pt with chronic hypothyroidism, continue with current medication, will monitor pt to signs or symptoms of lack of adequate supplementation. Pt is to continue with current dose of medication unless directed otherwise. Check labs at regular intervals wither q 3 months or q 6 months based on previous levels of control. 04/11/2018 Visit Plan: Hypothyroidism - pt wit h chronic hypothyroidism, continue with current medication, will monitor pt to signs or symptoms of lack of adequate supplementation. Pt is to continue with current dose of medication unless directed otherwise. Check labs at regular intervals wither q 3 months or q 6 months based on previous levels of control. Chronic Afib - rate now controlled with the flecainide - continue with this as well as blood thinners. Pt to call if any acute change in symptoms occurs. Well Adult Female - exam completed. Pap and breast exam completed. Pt will be called with results of her testing. She was advised to continue with yearly annual exams. Call if any abnormal gynecologic issues during the next year, otherwise, RTC yearly or prn. 04/11/2018 Appointment: Heidi Christy WPtel[facility] [facility] 04/11/2018 Patient Education: Patient Medication Summary Completed 04/11/2018 Appointment: Injection 08/17/2017 Patient Education: Patient Medication Summary Completed 08/17/2017 Visit Plan: Well Adult Female - exa m completed. Pap and breast exam completed. Pt will be called with results of her testing. She was advised to continue with yearly annual exams. Safe sex practices discussed durin g office visit today. Call if any abnormal gynecologic issues during the next year, otherwise, RTC yearly or prn. sample estrace cream 03/17/2017 Visit Plan: Well Adult Female - exa m completed. Pap and breast exam completed. Pt will be called with results of her testing. She was advised to continue with yearly annual exams. Safe sex practices discussed durin g office visit today. Call if any abnormal gynecologic issues during the next year, otherwise, RTC yearly or prn. sample estrace cream 03/17/2017 Visit Plan: Well Adult Female - exa m completed. Pap and breast exam completed. Pt will be called with results of her testing. She was advised to continue with yearly annual exams. Safe sex practices discussed durin g office visit today. Call if any abnormal gynecologic issues during the next year, otherwise, RTC yearly or prn. sample estrace cream 03/17/2017 Patient Education: Patient Medication Summary Completed 03/17/2017 Care Plan: PAP Pending 03/17/2017 Patient Education: Patient Medication Summary Completed 03/10/2016 Visit Plan: Welcome to Medicare Exa m - today we discussed the patients past history, immunizations, preventative exams/evaluations - colonoscopy, fecal occult blood testing, routine labs for renal function, gluc ose, cholesterol, osteoporosis evaluations, cardiovascular testing and cancer screenings. We have also discussed mental health and the signs/symptoms of depression. The patient was advised of home safety evaluations and the need to make sure that as the aging process continues, we need to be aware of different ways to make the home a safer place to reside. The patient has also been counseled that exercise is necessary - and of utmost importance as we age to help decrease fall risk and to maintain independence in the home. 02/19/2016 Patient Education: Patient Medication Summary Completed 02/19/2016 Visit Plan: Well Adult - pt was cou nseled about diet, exercise, and encouraged to follow a heart healthy diet and increase activity level. The patient was instructed to RTC yearly for well adult exams and PRN for acute illnesses. The pt was also instructed to have yearly labs for check of cholesterol, thyroid, chem panel, CBC, and renal functioning. Hypothyroidism - pt with chronic hypothyroidism, continue with current medication, will monitor pt to signs or symptoms of lack of adequate supplementation. Pt is to continue with current dose of medication unless directed otherwise. Check labs at regular intervals wither q 3 months or q 6 months based on previous levels of control. Hyperlipidemia - pt has been counseled about appropriate diet, exercise, and need for low fat food choices. I have discussed the need for the patient to take medications as prescribed. If the patient has negative side effects from the medication, they are to CALL the office and not abruptly discontinue the medication without discussion with a practitioner in the office. We will check labs in 3-6 months for follow up on the patient's chronic medical problem and to assure normal liver response to medications. 02/17/2016 Patient Education: Patient Medication Summary Completed 02/17/2016 Patient Education: Patient Medication Summary Completed 02/16/2016 Visit Plan: Well Adult Female - exa m completed. Pap and gc/chlamydia and breast exam completed. Pt will be called with results of her testing. She was advised to continue with yearly annual exams. Safe sex practice s discussed during office visit today. Call if any abnormal gynecologic issues during the next year, otherwise, RTC yearly or prn. Bvblzobrcega-xodys-zozxuykhk today in the office - back exercises discussed with the patient, pt to continue with anti-inflammatories. Pt is to call if the symptoms do not improve or if they worsen. 03/31/2015 Visit Plan: Well Adult Female - exa m completed. Pap and gc/chlamydia and breast exam completed. Pt will be called with results of her testing. She was advised to continue with yearly annual exams. Safe sex practice s discussed during office visit today. Call if any abnormal gynecologic issues during the next year, otherwise, RTC yearly or prn. Sphpadfmrbdd-nwavy-rijoryspy today in the office - back exercises discussed with the patient, pt to continue with anti-inflammatories. Pt is to call if the symptoms do not improve or if they worsen. 03/31/2015 Visit Plan: Well Adult Female - exa m completed. Pap and gc/chlamydia and breast exam completed. Pt will be called with results of her testing. She was advised to continue with yearly annual exams. Safe sex practice s discussed during office visit today. Call if any abnormal gynecologic issues during the next year, otherwise, RTC yearly or prn. Nbpdagqwmlmk-quwkn-qxdahhbfl today in the office - back exercises discussed with the patient, pt to continue with anti-inflammatories. Pt is to call if the symptoms do not improve or if they worsen. 03/31/2015 Appointment: Well Woman 03/31/2015 Patient Education: Patient Medication Summary Completed 03/31/2015 Care Plan: COMPLETE CBC AUTOMATED LOINC : 04796-0 Ordered 03/31/2015 Care Plan: GC/CHL PRB Pending 03/31/2015 Care Plan: PAP Pending 03/31/2015 Visit Plan: Well Adult Female - exa m completed. Pap and gc/chlamydia and breast exam completed. Pt will be called with results of her testing. She was advised to continue with yearly annual exams. Safe sex practice s discussed during office visit today. Call if any abnormal gynecologic issues during the next year, otherwise, RTC yearly or prn. Hot Flashes - recommended starting on low dose of prozac - 10mg daily - monitor symptoms, and call if not showing improvement. 02/04/2014 Appointment: Heidi Christy WPtel: [address] [place], [place] [id number] Well Woman 02/04/2014 Patient Education: Patient Medication Summary Completed 02/04/2014 Visit Plan: Vaginal bleeding- no pe lvic pain-pap negative January 2013-patient does have a history of atypical cells. Discussed with patient-plan for pelvic ultrasound-refer to Dr Barth-they will call with appoin tment. Patient verbalized understanding of plan. 11/29/2013 Appointment: [facility] Mclaughlin [facility]Ptel[facility] [phone] [phone] Pap Only 11/29/2013 Patient Education: Patient Medication Summary Completed 11/29/2013 Visit Plan: Abdominal discomfort - recommended to decrease dose of aspirin. Dizziness/Weakness - stop hormone - recommended eval by cardiology - check out ECHO to see if heart valve problem has worsened. Referral for stress test with cardiology. Pt is to call if her symptoms worsen acutely. I would recommend waiting for CT scan unless symptoms escalate. 08/27/2013 Appointment: Heidi Christy WPtel: [phone] [facility] Other 08/27/2013 Patient Education: Patient Medication Summary Completed 08/27/2013 Visit Plan: Tick bite-start oral an tibiotics as directed, return to clinic as previously directed, call for acute change in symptoms, worsening redness, warmth, discharge. Discuss s/s of tick illness and instructed patient to call if any symptoms develop. RX for doxycycline sent to patient's pharmacy. Patient verbalized understanding of plan. 06/28/2013 Appointment: Su[facility] Mclaughlin [facility]Ptel[facility] [phone] [phone] Other 06/28/2013 Patient Education: Patient Medication Summary Completed 06/28/2013 Visit Plan: Well Adult Female - exa m completed. Pap and gc/chlamydia and breast exam completed. Pt will be called with results of her testing. She was advised to continue with yearly annual exams. Safe sex practice s discussed during office visit today. Call if any abnormal gynecologic issues during the next year, otherwise, RTC yearly or prn. 01/10/2013 Appointment: Heidi Christy WPtel: [facility] Well Woman 01/10/2013 Patient Education: Patient Medication Summary Completed 01/10/2013 Care Plan: GC/CHL PRB Pending 01/10/2013 Visit Plan: Repeat Pap obtained tod ay - pt has not had recurrent vaginal lesions - Treatment with acyclovir has resolved the lesions. I suspect she contracted the lesions from oral sex while her partner had an outb reak of oral herpes simplex. Overweight - pt has gained 5 pounds in the past few months. She has been drinking mocha frappe's sometimes twice a week- we have discussed the fat and caloric content of those specific drinks - over 20 grams of fat and 450 calories. She is going to stop the drinks and increase her exercise. 11/25/2011 Appointment[facility] [phone] [facility] Pap Only 11/25/2011 Patient Education: Patient Medication Summary Completed 11/25/2011 Instructions Comment . Repeat Pap obtaine d today - pt has not had recurrent vaginal lesions - Treatment with acyclovir has resolved the lesions. I suspect she contracted the lesions from oral sex while her partner had an outbreak of oral herpes simplex. Overweight - pt has gained 5 pounds in the past few months. She has been drinking mocha frappe's sometimes twice a week- we have discussed the fat and caloric content of those specific drinks - over 20 grams of fat and 450 calories. She is going to stop the drinks and increase her exercise. . Vaginal bleeding- no pelvic pain-pap negative January 2013- patient does have a history of atypical cells. Discussed with patient-plan for pelvic ultrasound-refer to Dr Barth-they will call with appointment. Patient verbalized understanding of plan. . Tick bite-start or al antibiotics as directed, return to clinic as previously directed, call for acute change in symptoms, worsening redness, warmth, discharge. Discuss s/s of tick illness and instructed patient to call if any symptoms develop. RX for doxycycline sent to patient's pharmacy. Patient verbalized understanding of plan. . Well Adult Female - exam completed. Pap and gc/chlamydia and breast exam completed. Pt will be called with results of her testing. She was advised to continue with yearly annual exams. Safe sex practices discussed during office visit today. Call if any abnormal gynecologic issues during the next year, otherwise, RTC yearly or prn. Hot Flashes - recommended starting on low dose of prozac - 10mg daily - monitor symptoms, and call if not showing improvement. . Well Adult Female - exam completed. Pap and gc/chlamydia and breast exam completed. Pt will be called with results of her testing. She was advised to continue with yearly annual exams. Safe sex practices discussed during office visit today. Call if any abnormal gynecologic issues during the next year, otherwise, RTC yearly or prn. . Well Adult Female - exam completed. Pap and breast exam completed. Pt will be called with results of her testing. She was advised to continue with yearly annual exams. Safe sex practices discussed during office visit today. Call if any abnormal gynecologic issues during the next year, otherwise, RTC yearly or prn. sample estrace cream . Well Adult Female - exam completed. Pap and breast exam completed. Pt will be called with results of her testing. She was advised to continue with yearly annual exams. Safe sex practices discussed during office visit today. Call if any abnormal gynecologic issues during the next year, otherwise, RTC yearly or prn. sample estrace cream . Well Adult Female - exam completed. Pap and breast exam completed. Pt will be called with results of her testing. She was advised to continue with yearly annual exams. Safe sex practices discussed during office visit today. Call if any abnormal gynecologic issues during the next year, otherwise, RTC yearly or prn. sample estrace cream back down on aspirin to 81mg daily.. Abdominal discomfort - recommended to decrease dose of aspirin. Dizziness/Weakness - stop hormone - recommended eval by cardiology - check out ECHO to see if heart valve problem has worsened. Referral for stress test with cardiology. Pt is to call if her symptoms worsen acutely. I would recommend waiting for CT scan unless symptoms escalate. SCHEDULE WELCOME TO MEDICARE . Well Adult - pt was counseled about di et, exercise, and encouraged to follow a heart healthy diet and increase activity level. The patient was instructed to RTC yearly for well adult exams and PRN for acute illnesses. The pt was also instructed to have yearly labs for check of cholesterol, thyroid, chem panel, CBC, and renal functioning. Hypothyroidism - pt with chronic hypothyroidism, continue with current medication, will monitor pt to signs or symptoms of lack of adequate supplementation. Pt is to continue with current dose of medication unless directed otherwise. Check labs at regular intervals wither q 3 months or q 6 months based on previous levels of control. Hyperlipidemia - pt has been counseled about appropriate diet, exercise, and need for low fat food choices. I have discussed the need for the patient to take medications as prescribed. If the patient has negative side effects from the medication, they are to CALL the office and not abruptly discontinue the medication without discussion with a practitioner in the office. We will check labs in 3-6 months for follow up on the patient's chronic medical problem and to assure normal liver response to medications. I will look in your records and let you know about your most recent colonoscopy . Welcome to Medicare Exam - today we di scussed the patients past history, immunizations, preventative exams/evaluations - colonoscopy, fecal occult blood testing, routine labs for renal function, glucose, cholesterol, osteoporosis evaluations, cardiovascular testing and cancer screenings. We have also discussed mental health and the signs/symptoms of depression. The patient was advised of home safety evaluations and the need to make sure that as the aging process continues, we need to be aware of different ways to make the home a safer place to reside. The patient has also been counseled that exercise is necessary - and of utmost importance as we age to help decrease fall risk and to maintain independence in the home. . Hypothyroidism - pt with chronic hypothyroidism, continue with current medication, will monitor pt to signs or symptoms of lack of adequate supplementation. Pt is to continue with current dose of medication unless directed otherwise. Check labs at regular intervals wither q 3 months or q 6 months based on previous levels of control. Chronic Afib - rate now controlled with the flecainide - continue with this as well as blood thinners. Pt to call if any acute change in symptoms occurs. Well Adult Female - exam completed. Pap and breast exam completed. Pt will be called with results of her testing. She was advised to continue with yearly annual exams. Call if any abnormal gynecologic issues during the next year, otherwise, RTC yearly or prn. . Well Adult Female - exam completed. Pap and breast exam completed. Pt will be called with results of her testing. She was advised to continue with yearly annual exams. Call if any abnormal gynecologic issues during the next year, otherwise, RTC yearly or prn. Hypothyroidism - pt with chronic hypothyroidism, continue with current medication, will monitor pt to signs or symptoms of lack of adequate supplementation. Pt is to continue with current dose of medication unless directed otherwise. Check labs at regular intervals wither q 3 months or q 6 months based on previous levels of control. . Hypothyroidism - pt with chronic hypothyroidism, continue with current medication, will monitor pt to signs or symptoms of lack of adequate supplementation. Pt is to continue with current dose of medication unless directed otherwise. Check labs at regular intervals wither q 3 months or q 6 months based on previous levels of control. Chronic Afib - rate now controlled with the flecainide - continue with this as well as blood thinners. Pt to call if any acute change in symptoms occurs. Well Adult Female - exam completed. Pap and breast exam completed. Pt will be called with results of her testing. She was advised to continue with yearly annual exams. Call if any abnormal gynecologic issues during the next year, otherwise, RTC yearly or prn. . Well Adult Female - exam completed. Pap and gc/chlamydia and breast exam completed. Pt will be called with results of her testing. She was advised to continue with yearly annual exams. Safe sex practices discussed during office visit today. Call if any abnormal gynecologic issues during the next year, otherwise, RTC yearly or prn. [id number] today in the office - back exercises discussed with the patient, pt to continue with anti-inflammatories. Pt is to call if the symptoms do not improve or if they worsen. . Well Adult Female - exam completed. Pap and gc/chlamydia and breast exam completed. Pt will be called with results of her testing. She was advised to continue with yearly annual exams. Safe sex practices discussed during office visit today. Call if any abnormal gynecologic issues during the next year, otherwise, RTC yearly or prn. [id number] today in the office - back exercises discussed with the patient, pt to continue with anti-inflammatories. Pt is to call if the symptoms do not improve or if they worsen. . Well Adult Female - exam completed. Pap and gc/chlamydia and breast exam completed. Pt will be called with results of her testing. She was advised to continue with yearly annual exams. Safe sex practices discussed during office visit today. Call if any abnormal gynecologic issues during the next year, otherwise, RTC yearly or prn. [id number] today in the office - back exercises discussed with the patient, pt to continue with anti-inflammatories. Pt is to call if the symptoms do not improve or if they worsen.
--- OUTSIDE RECORDS SUMMARY | 2020-04-11 13:02 | XMS REPORT | CCD ---
Author Author Cherelle Christy Organization Heidi Christy MD, [facility] Address [address] [place] [address] Phone Care Team Providers Care [employer] [facility] [facility] Manager Name Role Phone PP Unavailable CCM Unavailable Summary Purpose Interface Exchange Insurance Providers Payer name Policy type / Coverage type Covered green party ID Effective Begin Date Effective End Date WPS Medicare Part B Medicare Part B [id number] 2015 Unknown [facility] Part B [id number] Un known Family history Brother Diagnosis Age [...] 1 son 11/25/[address]: [id number] Nonsmoker 11/25/2011 Has the patient ever used illegal drugs? Unknown Has never used illegal drugs 012 Allergies, Adverse Reactions, Alerts Substance Reaction Codes Entered Date Inactivated Date Status FLOXIN - ANTIBIOTIC Unknown 11/26/2011 No Inactive Date Active Past Medical History Illness Codes Condition Status Onset Date Resolved Date Encounter for screen ing mammogram for malignant neoplasm of breast ICD-9: V76.12 ICD-10: Z12.31 Active 03/09/2016 Unknown Atrophy of thyroid ( acquired) ICD-9: 244.8 ICD-10: E03.4 Active 04/11/2018 Unknown Chronic atrial fibri llation ICD-9: 427.31 ICD-10: I48.2 Active 04/11/2018 Unknown Other muscle spasm ICD- 9: 728.85 ICD-10: M62.838 Active 04/30/2019 Unknown Pain in right shoulder ICD-9: 719.41 ICD-10: M25.511 Active 04/30/2019 Unknown Encounter for gyneco logical examination (general) (routine) without abnormal findings ICD-9: V72.31 ICD-10: Z01.419 Active 03/17/2017 Unknown Encounter for immuni zation ICD-9: V04.81 [...] Condition Codes Effectiv e Dates Condition Status Encounter for screen ing mammogram for malignant neoplasm of breast ICD-9: V76.12 ICD-10: Z12.31 03/09/2016 Active Atrophy of thyroid ( acquired) ICD-9: 244.8 ICD-10: E03.4 04/11/2018 Active Chronic atrial fibri llation ICD-9: 427.31 ICD-10: I48.2 04/11/2018 Active Other muscle spasm ICD- 9: 728.85 ICD-10: M62.838 04/30/2019 Active Pain in right shoulder ICD-9: 719.41 ICD-10: M25.511 04/30/2019 Active Encounter for gyneco logical examination (general) (routine) without abnormal findings ICD-9: V72.31 ICD-10: Z01.419 03/17/2017 Active Encounter for immuni zation ICD-9: V04.81 [...] Instruc tions Start Date Stop Date Sta Fill Instructions Estrace 0.01% (0.1 m g/gram) vaginal cream RxNorm: 690959 INSERT 1 APPLICATION VAGINALLY TWICE WEEKLY 05/01/2019 01/19/2021 Active 04/30/2019 1:34:50 PM Kenalog 40 mg/mL bernard pension for injection RxNorm: 8979412 1 Milliliter(s) Inj 04/30/2019 04/30/2019 In active pravastatin 10 mg ta blet RxNorm: 386180 TAKE 1 TABLET BY MOUT H AT BEDTIME 04/24/2019 08/21/2019 Ac tive Generic For:PRAVACHOL 10MG 04/24/2019 9 :49:53 AM pravastatin 10 mg ta blet RxNorm: 945831 TAKE 1 TABLET BY MOUT H AT BEDTIME 04/24/2019 04/23/2019 In active Generic For:PRAVACHOL 10MG 04/24/2019 9 :49:47 AM N O T I C E Last quantity doesn't match original quantity pravastatin 10 mg ta blet RxNorm: 232943 TAKE 1 TABLET BY MOUT H AT BEDTIME 10/16/2018 02/12/2019 In active Generic For:PRAVACHOL 10MG 10/14/2018 8 :55:15 AM Synthroid 50 mcg tablet RxNorm: 718916 TAKE 1 TABLET BY MOUTH DAILY 10/06/2018 09/30/2019 Active Generic For:SYNTHROID 50MCG TAB 018 9:31:36 AM pravastatin 10 mg ta blet RxNorm: 124137 TAKE 1 TABLET BY MOUT H AT BEDTIME 02/28/2018 06/27/2018 In active Generic For:PRAVACHOL 10MG 02/28/2018 9 :27:39 AM Synthroid 50 mcg tablet RxNorm: 487079 TAKE 1 TABLET BY MOUTH DAILY 09/26/2017 09/20/2018 Inactive Generic For:SYNTHROID 50MCG TAB 017 9:16:20 AM pravastatin 10 mg ta blet RxNorm: 559983 TAKE 1 TABLET BY MOUT H AT BEDTIME 07/15/2017 11/11/2017 In active Generic For:PRAVACHOL 10MG 07/15/2017 8 :54:19 AM Estrace 0.01% (0.1 m g/gram) vaginal cream RxNorm: 799308 1 VAG BIW 05/23/2017 12/18/2017 Inactive pt wants this filled at [facility] Estrace 0.01% (0.1 m g/gram) vaginal cream RxNorm: 154823 1 VAG BIW 05/23/2017 05/22/2017 Inactive gabapentin 300 mg ca psule RxNorm: 213774 1 cap(s) po tid,Instr :for neuropathic pain 03/31/2017 04/29/2019 In active pravastatin 10 mg ta blet RxNorm: 941700 TAKE 1 TABLET BY MOUT H AT BEDTIME 09/20/2016 03/18/2017 In active Generic For:PRAVACHOL 10MG 09/20/2016 9 :01:58 AM Synthroid 50 mcg tablet RxNorm: 617591 TAKE 1 TABLET BY MOUTH DAILY 07/22/2016 07/16/2017 Inactive Generic For:SYNTHROID 50MCG TAB 9:11:52 AM pravastatin 10 mg ta blet RxNorm: 821774 TAKE 1 TABLET BY MOUT H AT BEDTIME 03/23/2016 09/18/2016 In active Generic For:PRAVACHOL 10MG pravastatin 10 mg ta blet RxNorm: 593130 TAKE 1 TABLET BY MOUT H AT BEDTIME 09/26/2015 03/22/2016 In active Generic For:PRAVACHOL 10MG 09/26/2015 1 :46:52 PM Synthroid 50 mcg tablet RxNorm: 137542 1 Tablet(s) PO daily 07/24/2015 07/17/2016 Inactive Kenalog 40 mg/mL bernard pension for injection RxNorm: 1640596 1 Milliliter(s) Inj 03/31/2015 03/31/2015 In active pravastatin 10 mg ta blet RxNorm: 698424 TAKE 1 TABLET BY MOUT H AT BEDTIME 03/31/2015 09/25/2015 In active Generic For:PRAVACHOL 10MG 03/29/2015 8 :51:39 AM pravastatin 10 mg ta blet RxNorm: 268456 1 Tablet(s) PO QHS (n eeds appt for further refills) 02/27/2015 03/28/2015 Inactive [SAVINGS FOR NON-COVERED DR BELLO -- BIN:[id number], PCN: [id number], Group: XXXXX, ID# [id number], Questions: . THIS IS NOT INSURANCE.] pravastatin 10 mg ta blet RxNorm: 592820 1 Tablet(s) PO QHS (n eeds appt for further refills) 01/28/2015 02/26/2015 Inactive [SAVINGS FOR NON-COVERED DR BELLO -- BIN:[id number], PCN: [id number], Group: XXXXX, ID# XXXXXXX, Questions: . THIS IS NOT INSURANCE.] pravastatin 10 mg ta blet RxNorm: 871102 1 Tablet(s) PO QHS 07/18/2014 01/13/2015 Inactive Synthroid 50 mcg tablet RxNorm: 914524 1 Tablet(s) PO daily 05/31/2014 05/25/2015 Inactive acyclovir 400 mg tablet RxNorm: 457628 1 Tablet(s) PO QID 05/31/2014 06/19/2014 Inactive Prozac 10 mg capsule RxNorm: 007635 1 Capsule(s) PO QPM 02/04/2014 02/16/2016 Inactive may dispense generic CombiPatch 0.05 mg-0 .14 mg/24 hr transdermal RxNorm: 2413244 1 Patch TD BIW 12/25/2013 01/23/2014 In active pravastatin 10 mg ta blet RxNorm: 689221 1 Tablet(s) PO QHS 12/20/2013 06/17/2014 Inactive medroxyprogesterone 5 mg tablet RxNorm: 8444931 Tablet(s) PO TAKE 1 TABLET ONCE DAILY 10 DAYS PER MONTH 09/24/2013 12/24/2013 Inactive Premarin 0.3 mg tablet RxNorm: 673740 Tablet(s) PO TAKE 1 TABLET BY MOUTH ONCE DAILY. 09/24/2013 12/24/2013 Inactive doxycycline hyclate 100 mg tablet RxNorm: 9379088 1 Tablet(s) PO BID 06/28/2013 07/04/2013 Inactive pravastatin 10 mg ta blet RxNorm: 197518 1 Tablet(s) PO QHS 05/31/2013 11/26/2013 Inactive Synthroid 50 mcg tablet RxNorm: 796354 1 Tablet(s) PO daily 03/22/2013 03/21/2013 Inactive Synthroid 50 mcg tablet RxNorm: 983169 1 Tablet(s) PO daily 03/22/2013 03/16/2014 Inactive pravastatin 10 mg ta blet RxNorm: 973037 1 Tablet(s) PO QHS 01/15/2013 05/14/2013 Inactive Synthroid 25 mcg tablet RxNorm: 606062 1 Tablet(s) PO daily 01/15/2013 03/22/2013 Inactive brand name only pravastatin 10 mg ta blet RxNorm: 036330 1 Tablet(s) PO QHS 01/15/2013 01/14/2013 Inactive Climara Pro 0.045 mg -0.015 mg/24 hr Transderm Patch RxNorm: 219337 1 Application TD QW 01/10/2013 08/26/2013 Inactive Synthroid 25 mcg tablet RxNorm: 412069 1 Tablet(s) PO daily 01/10/2013 01/14/2013 Inactive acyclovir 400 mg tablet RxNorm: 034969 1 Tablet(s) PO QID 10/31/2012 11/09/2012 Inactive levothyroxine 25 mcg tablet RxNorm: 261449 1 Tablet(s) PO daily 09/05/2012 01/10/2013 Inactive medroxyprogesterone 5 mg tablet RxNorm: 3864293 Tablet(s) PO 02/09/2012 01/10/2013 Inactive TAKE 1 TABLET ONCE DAILY 10 DAYS PER Tue Premarin 0.3 mg tablet RxNorm: 582885 1 Tablet(s) PO daily 01/31/2012 01/10/2013 Inactive levothyroxine 25 mcg tablet RxNorm: 698881 1 Tablet(s) PO daily 01/20/2012 07/17/2012 Inactive levothyroxine 25 mcg Tab RxNorm: 780920 1 Tablet(s) PO daily 07/01/2011 07/30/2011 Inactive aspirin 325 mg Tab RxNorm: 748308 1 Tablet(s) PO daily No Start Date Active Eliquis 5 mg tablet RxNorm: 5765600 1 Tablet(s) PO BID No Start Date Active flecainide 50 mg tablet RxNorm: 308424 1 Tablet(s) PO BID No Start Date Active gabapentin 300 mg ca psule RxNorm: 866654 1 Capsule(s) PO TID No Start Date 03/30/2017 Inactive Carafate 1 gram tablet RxNorm: 211758 1 Tablet(s) PO QID No Start Date 02/16/2016 Inactive medroxyprogesterone 5 mg Tab RxNorm: 7398296 1 Tablet(s) PO daily No Start Date 02/08/2012 Inactive Dexilant 60 mg capsu le, delayed release RxNorm: 920322 1 Capsule(s) PO daily No Start Date 02/16/2016 Inactive Premarin 0.3 mg Tab RxNorm: 260828 1 Tablet(s) PO daily No Start Date 01/30/2012 Inactive Motrin IB 200 mg Tab RxNorm: 839818 1 Tablet(s) PO daily No Start Date 02/16/2016 Inactive Fish Oil 1,000 mg Cap RxNorm: 1 Capsule(s) PO daily No Start Date 02/16/2016 Inactive niacin 500 mg Tab RxNorm: 766220 1 Tablet(s) PO daily No Start Date 02/16/2016 Inactive Medication Administered Medication Codes Instruc tions Start Date Status Kenalog 40 mg/mL suspension for injection RxNorm: 0590613 1Milliliter 04/30/2019 N o longer Active Kenalog 40 mg/mL suspension for injection RxNorm: 3834442 1Milliliter 03/31/2015 N o longer Active Immunizations Vaccine Codes Date Status Influenza CVX: 141 08/24 completed Influenza CVX: 141 08/17 completed Pneumococcal (Adult) CVX: 133 02/19/2016 completed Assessments Condition Codes Effectiv e Dates Encounter for screening mammogram for ma lignant neoplasm of breast ICD-10: Z12.31 ICD-9: V76.12 06/07/2019 Atrophy of thyroid (acquired) ICD-10 : E03.4 ICD-9: 244.8 04/30/2019 Chronic atrial fibrillation ICD-10: I48.2 ICD-9: 427.31 04/30/2019 Other muscle spasm ICD-10: M62.838 ICD-9: 728.85 04/30/2019 Pain in right shoulder ICD-10: M25.5 11 ICD-9: 719.41 04/30/2019 Encounter for gynecological examination (general) (routine) without abnormal findings ICD-10: Z01.419 ICD-9: V72.31 04/11/2018 Encounter for immunization ICD-10: Z 23 [...] Dates Notes well woman exam (65+ years) 04/30/2019 well woman exam (65+ years) 04/11/2018 vaccination [...] Observation Code Item Item Code Result Date Comp Metabolic Rzg241 NA 140 mEq/L 05/02/2019 Comp Metabolic Anp133 K 4.5 mEq/L 05/02/2019 Comp Metabolic Moq199 CL 103 mEq/L 05/02/2019 Comp Metabolic Not598 CO2 30.0 mEq/L 05/02/2019 Comp Metabolic Ebm132 AN ION GAP 12 05/02/2019 Comp Metabolic Cog274 GL UCOSE 99 mg/dL 05/02/2019 Comp Metabolic Mis205 Cr eat 0.8 mg/dL 05/02/2019 Comp Metabolic Lyv492 eG FR 72 ml/min/1.73m2 05/02 Comp Metabolic Jeu456 BUN 17 mg/dL 05/02/2019 Comp Metabolic Bct134 B/ C Ratio 20.2 Ratio 05/02/2019 Comp Metabolic Xiz229 CA LCIUM 9.5 mg/dL 05/02/2019 Comp Metabolic Len652 AL K PHOS 75 U/L 05/02/2019 Comp Metabolic Ydk736 T(SGOT) 17 U/L 05/02/2019 Comp Metabolic Lax737 AL T(SGPT) 16 U/L 05/02/2019 Comp Metabolic Lzg147 BI LI T 0.6 mg/dL 05/02/2019 Comp Metabolic Cxd654 AL BUMIN 4.4 g/dL 05/02/2019 Comp Metabolic Ecl305 TP RO 6.6 g/dL 05/02/2019 Comp Metabolic Sws385 GL OB 2.2 g/dL 05/02/2019 Comp Metabolic Plk015 A/ G Ratio 2.0 Ratio 05/02/2019 Comp Metabolic Rbu899 Os mo 281 mOsmo 05/02/2019 Tsh Ord6 TSH (3rd IS) 2.22 uIU/mL 05/02/2019 Lipid Ord30 CHOL 240 mg/dL 05/02/2019 Lipid Ord30 HDL 63.0 mg/dl 05/02/2019 Lipid Ord30 TRIG 101 mg/dL 05/02/2019 Lipid Ord30 LDL 157 mg/dL 05/02/2019 Lipid Ord30 C/HDL 3.8 Ratio 05/02/2019 Cbc With Differential Ord2 WBC 8.86 K/ul 05/02/2019 Cbc With Differential Ord2 RBC 4.97 M/ul 05/02/2019 Cbc With Differential Ord2 HGB 14.1 g/dl 05/02/2019 Cbc With Differential Ord2 Neut% 72.0 % 05/02/2019 Cbc With Differential Ord2 HCT 43.3 % 05/02/2019 Cbc With Differential Ord2 Lymph% 21.4 % 05/02/2019 Cbc With Differential Ord2 MCV 87.1 fl 05/02/2019 Cbc With Differential Ord2 MCH 28.4 pg 05/02/2019 Cbc With Differential Ord2 [place]% 6.2 % 05/02/2019 Cbc With Differential Ord2 MCHC 32.6 pg 05/02/2019 Cbc With Differential Ord2 Eos% 0.3 % 05/02/2019 Cbc With Differential Ord2 PLT 327 K/ul 05/02/2019 Cbc With Differential Ord2 Baso% 0.1 % 05/02/2019 Cbc With Differential Ord2 RDW 14.7 % 05/02/2019 Cbc With Differential Ord2 Neut ABS# 6.37 K/ul 05/02/2019 Cbc With Differential Ord2 Lymph ABS# 1.90 K/ul 05/02/2019 Cbc With Differential Ord2 [place] ABS# 0.6 K/ul 05/02/2019 Cbc With Differential Ord2 Eos ABS# 0.0 K/ul 05/02/2019 Cbc With Differential Ord2 Baso ABS# 0.0 K/ul 05/02/2019 Free T4 Lck183 FREE T4 0.95 ng/dL 05/02/2019 Tsh Ord6 TSH (3rd IS) 1.97 uIU/mL 04/14/2018 Lipid Ord30 CHOL 202 mg/dL 04/14/2018 Lipid Ord30 HDL 57.0 mg/dl 04/14/2018 Lipid Ord30 TRIG 109 mg/dL 04/14/2018 Lipid Ord30 LDL 123 mg/dL 04/14/2018 Lipid Ord30 C/HDL 3.5 Ratio 04/14/2018 Comp Metabolic Acv592 NA 141 mEq/L 04/14/2018 Comp Metabolic Cmk789 K 4.1 mEq/L 04/14/2018 Comp Metabolic Yni809 CL 104 mEq/L 04/14/2018 Comp Metabolic Zvr909 CO2 30.0 mEq/L 04/14/2018 Comp Metabolic Axe146 AN ION GAP 11 04/14/2018 Comp Metabolic Unc235 GL UCOSE 101 mg/dL 04/14/2018 Comp Metabolic Oie903 Cr eat 0.8 mg/dL 04/14/2018 Comp Metabolic Ifg834 eG FR 73 ml/min/1.73m2 04/14 Comp Metabolic Shv326 BUN 16 mg/dL 04/14/2018 Comp Metabolic Bfz431 B/ C Ratio 19.3 Ratio 04/14/2018 Comp Metabolic Loo169 CA LCIUM 9.0 mg/dL 04/14/2018 Comp Metabolic Yfw271 AL K PHOS 74 U/L 04/14/2018 Comp Metabolic Nev512 T(SGOT) 18 U/L 04/14/2018 Comp Metabolic Dko296 AL T(SGPT) 13 U/L 04/14/2018 Comp Metabolic Cwn217 BI LI T 0.6 mg/dL 04/14/2018 Comp Metabolic Mda339 AL BUMIN 4.1 g/dL 04/14/2018 Comp Metabolic Wjh133 TP RO 6.1 g/dL 04/14/2018 Comp Metabolic Wpu281 GL OB 2.1 g/dL 04/14/2018 Comp Metabolic Ixq904 A/ G Ratio 2.0 Ratio 04/14/2018 Comp Metabolic Kdl301 Os mo 283 mOsmo 04/14/2018 Free T4 Vyd522 FREE T4 0.96 ng/dL 04/14/2018 Cbc With [...] 28.7 pg 04/14/2018 Cbc With Differential Ord2 [place]% 9.1 % 04/14/2018 Cbc With Differential Ord2 [...] 2.01 K/ul 04/14/2018 Cbc With Differential Ord2 [place] ABS# 0.5 K/ul 04/14/2018 Cbc With Differential Ord2 Eos ABS# 0.1 K/ul 04/14/2018 Cbc With Differential Ord2 Baso ABS# 0.0 K/ul 04/14/2018 Lipid Ord30 CHOL 173 mg/dL 03/18/2017 Lipid Ord30 HDL 51.0 mg/dl 03/18/2017 Lipid Ord30 TRIG 89 mg/dL 03/18/2017 Lipid Ord30 LDL 104 mg/dL 03/18/2017 Lipid Ord30 C/HDL 3.4 Ratio 03/18/2017 Free T4 Obp853 FREE T4 0.94 ng/dL 03/18/2017 Cbc With [...] 28.8 pg 03/18/2017 Cbc With Differential Ord2 [place]% 7.7 % 03/18/2017 Cbc With Differential Ord2 [...] 1.76 K/ul 03/18/2017 Cbc With Differential Ord2 [place] ABS# 0.4 K/ul 03/18/2017 Cbc With Differential Ord2 Eos ABS# 0.1 K/ul 03/18/2017 Cbc With Differential Ord2 Baso ABS# 0.0 K/ul 03/18/2017 Tsh Ord6 hTSH II 1.47 uIU/mL 03/18/2017 Comp Metabolic Inq774 NA 140 mEq/L 03/18/2017 Comp Metabolic Krp853 K 4.4 mEq/L 03/18/2017 Comp Metabolic Ovo884 CL 105 mEq/L 03/18/2017 Comp Metabolic Kyu728 CO2 29.0 mEq/L 03/18/2017 Comp Metabolic Bsv488 AN ION GAP 10 03/18/2017 Comp Metabolic Ksn773 GL UCOSE 89 mg/dL 03/18/2017 Comp Metabolic Hwl304 Cr eat 0.7 mg/dL 03/18/2017 Comp Metabolic Ydh534 eG FR 86 ml/min/1.73m2 03/18 Comp Metabolic Gga596 BUN 13 mg/dL 03/18/2017 Comp Metabolic Rnv090 B/ C Ratio 18.1 Ratio 03/18/2017 Comp Metabolic Uyn429 CA LCIUM 8.8 mg/dL 03/18/2017 Comp Metabolic Hkz947 AL K PHOS 77 U/L 03/18/2017 Comp Metabolic Gso080 T(SGOT) 25 U/L 03/18/2017 Comp Metabolic Hhy784 AL T(SGPT) 18 U/L 03/18/2017 Comp Metabolic Ntm529 BI LI T 0.8 mg/dL 03/18/2017 Comp Metabolic Jbs249 AL BUMIN 4.0 g/dL 03/18/2017 Comp Metabolic Whv859 TP RO 6.1 g/dL 03/18/2017 Comp Metabolic Pfm892 GL OB 2.1 g/dL 03/18/2017 Comp Metabolic Xwn867 A/ G Ratio 1.9 Ratio 03/18/2017 Comp Metabolic Cck480 Os mo 279 mOsmo 03/18/2017 Lipid Ord30 CHOL 182 mg/dL 02/17/2016 Lipid Ord30 HDL 56.0 mg/dl 02/17/2016 Lipid Ord30 TRIG 80 mg/dL 02/17/2016 Lipid Ord30 LDL 110 mg/dL 02/17/2016 Lipid Ord30 C/HDL 3.3 Ratio 02/17/2016 Free T4 Tdx123 FREE T4 1.00 ng/dL 02/17/2016 Tsh Ord6 hTSH II 2.03 uIU/mL 02/17/2016 Comp Metabolic Eqv012 NA 140 mEq/L 02/17/2016 Comp Metabolic Tkp300 K 3.8 mEq/L 02/17/2016 Comp Metabolic Ojg894 CL 104 mEq/L 02/17/2016 Comp Metabolic Ved138 CO2 32.0 mEq/L 02/17/2016 Comp Metabolic Qak454 AN ION GAP 8 02/17/2016 Comp Metabolic Adm573 GL UCOSE 96 mg/dL 02/17/2016 Comp Metabolic Hhx245 Cr eat 0.8 mg/dL 02/17/2016 Comp Metabolic Nom029 eG FR 76 ml/min/1.73m2 02/16 Comp Metabolic Egg408 BUN 14 mg/dL 02/17/2016 Comp Metabolic Kmv665 B/ C Ratio 17.5 Ratio 02/17/2016 Comp Metabolic Fjf026 CA LCIUM 9.4 mg/dL 02/17/2016 Comp Metabolic Hoh804 AL K PHOS 66 U/L 02/17/2016 Comp Metabolic Fvc334 T(SGOT) 16 U/L 02/17/2016 Comp Metabolic Zje983 AL T(SGPT) 13 U/L 02/17/2016 Comp Metabolic Flh537 BI LI T 0.8 mg/dL 02/17/2016 Comp Metabolic Xsn781 AL BUMIN 4.3 g/dL 02/17/2016 Comp Metabolic Qap656 TP RO 6.3 g/dL 02/17/2016 Comp Metabolic Qgg564 GL OB 2.0 g/dL 02/17/2016 Comp Metabolic Bbj319 A/ G Ratio 2.2 Ratio 02/17/2016 Comp Metabolic Che879 Os mo 280 mOsmo 02/17/2016 Cbc With [...] 28.8 pg 02/17/2016 Cbc With Differential Ord2 [place]% 9.4 % 02/17/2016 Cbc With Differential Ord2 [...] 2.09 K/ul 02/17/2016 Cbc With Differential Ord2 [place] ABS# 0.5 K/ul 02/17/2016 Cbc With Differential Ord2 Eos ABS# 0.1 K/ul 02/17/2016 Cbc With Differential Ord2 Baso ABS# 0.0 K/ul 02/17/2016 Cbc With Differential Ord2 New Analyzer Notice Please note new ref ranges s tarting 10-29-2015 due to implemntation of new five part differential hematolgy analyzer. 02/17/2016 GC/CHL PRB [id number] CHLM PROBE NEG 04/01/2015 GC/CHL PRB 0005391 GC ND OBE NEG 04/01/2015 GC/CHL PRB [id number] CHLM PROBE NEG 02/05/2014 GC/CHL PRB [id number] GC ND OBE NEG 02/05/2014 Review of Systems System Result Effective Dates Constitutional No night sweats 04/30/2019 Constitutional No chills 04/30/2019 Constitutional No fatigue 04/30/2019 Constitutional No fever 04/30/2019 Ears/Nose/Throat/Neck No headache 04/30/2019 Cardiovascular No chest pain/pressure 04/30/2019 Cardiovascular No dyspnea 04/30/2019 Respiratory No chest congestion 04/30/2019 Respiratory No chest tightness 04/30/2019 Respiratory No cough Gastrointestinal No abdominal pain 04/30/2019 Gastrointestinal No anorexia 04/30/2019 Gastrointestinal No constipation 04/30/2019 Musculoskeletal No stiffness 04/30/2019 Dermatologic No rash Dermatologic No sores Neurologic No dizziness 04/30/2019 Neurologic No headache 0 04/30/2019 Psychiatric No anxiety 0 04/30/2019 Psychiatric No depression 04/30/2019 Eyes No vision change Musculoskeletal neck pain 04/30/2019 Constitutional No night sweats 04/11/2018 Constitutional No [...] 1994 Constitutional general appearance Overall: well developed 04/30/2019 None Full Exam - General 1994 Constitutional general appearance Overall: in no acute distress 04/30/2019 None Full Exam - General 1994 Constitutional general appearance Overall: well nourished 04/30/2019 None Full Exam - General 1994 Eyes pupils and irises Overall: pupils equal, round, reactive to light and accomodation 04/30/2019 None Full Exam - General 1994 Ears/Nose/Throat otoscopic exam Overall: external auditory canals clear 04/30/2019 None Full Exam - General 1994 Ears/Nose/Throat otoscopic exam Overall: tympanic membranes clear 04/30/2019 None Full Exam - General 1994 Ears/Nose/Throat oral cavity/pharynx/larynx Overall: oral mucosa clear 04/30/2019 None Full Exam - General 1994 Ears/Nose/Throat oral cavity/pharynx/larynx Overall: oropharyngeal mucosa clear 04/30/2019 None Full Exam - General 1994 Ears/Nose/Throat oral cavity/pharynx/larynx Overall: no masses 04/30/2019 None Full Exam - General 1994 Respiratory auscultation Overall: breath sounds clear bilaterally 04/30/2019 None Full Exam - General 1994 Respiratory respiratory effort/rhythm Overall: no retractions 04/30/2019 None Full Exam - General 1994 Respiratory respiratory effort/rhythm Overall: normal rate 04/30/2019 None Full Exam - General 1994 Cardiovascular auscultation of heart Overall: regular rate 04/30/2019 None Full Exam - General 1994 Cardiovascular auscultation of heart Overall: normal heart sounds 04/30/2019 None Full Exam - General 1994 Cardiovascular auscultation of heart Overall: no murmurs 04/30/2019 None Full Exam - General 1994 Abdomen abdominal exam Overall: no tenderness 04/30/2019 None Full Exam - General 1994 Abdomen abdominal exam Overall: normal bowel sounds 04/30/2019 None Full Exam - General 1994 Musculoskeletal head and neck Overall: head atraumatic 04/30/2019 None Full Exam - General 1994 Musculoskeletal head and neck Overall: cervical spine benign 04/30/2019 with tenderness of four s pots in trapezius muscle between neck and shoulder - trigger points x 4 spots injected Full Exam - General 1994 Integument inspection of skin Overall: no rash, lesions 04/30/2019 None Full Exam - General 1994 Neurologic cranial nerves Overall: crainial nerves 2 - 12 grossly intact 04/30/2019 None Full Exam - General 1994 Psychiatric orientation/consciousness Overall: oriented to person, place and time 04/30/2019 None Full Exam - General 1994 Psychiatric mood and affect Overall: normal mood and affect 04/30/2019 None Full Exam - General 1994 Psychiatric mood and affect Mood: happy 04/30/2019 None Full Exam - General 1994 Constitutional [...] bloody 11/29/2013 None Full Exam - General 1995 Constitutional general appearance Development: well developed 08/27/2013 None Full Exam - General 1994 Constitutional general appearance Hygiene/Attention to Grooming: good hygiene 08/27/2013 None Full Exam - General 1995 Eyes conjunctiva/eyelids Overall: conjunctiva clear 08/27/2013 None Full Exam - General 1995 Eyes conjunctiva/eyelids Overall: cornea clear 08/27/2013 None Full Exam - General 1994 Eyes conjunctiva/eyelids Overall: eyelids normal 08/27/2013 None Full Exam - General 1994 Eyes pupils and irises Overall: pupils equal, round, reactive to light and accomodation 08/27/2013 None Full Exam - General 1995 Ears/Nose/Throat otoscopic exam Overall: external auditory canals clear 08/27/2013 None Full Exam - General 1995 Ears/Nose/Throat otoscopic exam Overall: tympanic membranes clear 08/27/2013 None Full Exam - General 1995 Ears/Nose/Throat lips/teeth/gingiva Overall: benign lips 08/27/2013 None Full Exam - General 1995 Ears/Nose/Throat lips/teeth/gingiva Overall: normal dentition 08/27/2013 None [...] General 1994 Constitutional general appearance Development: appears older than stated age 1108/27/2013 None Full Exam - General 1994 Constitutional [...] sounds 08/27/2013 None Full Exam - General 1995 Cardiovascular auscultation of heart Overall: regular rate 08/27/2013 None Full Exam - General 1995 Abdomen abdominal exam Overall: no tenderness 08/27/2013 None Full Exam - General 1995 Abdomen abdominal exam Overall: normal bowel sounds 08/27/2013 None Full Exam - General 1995 Integument inspection of skin Overall: few scattered moles, no gross abnormalities 08/27/2013 None Full Exam - General 1994 Neurologic deep tendon reflexes Overall: deep tendon reflexes intact 08/27/2013 None Full Exam - General 1995 Neurologic cranial nerves Overall: crainial nerves 2 - 12 grossly intact 08/27/2013 None Full Exam - General 1995 Psychiatric orientation/consciousness Overall: oriented to person, place and time 08/27/2013 None Full Exam - General 1994 Psychiatric mood and affect Overall: normal mood and affect 08/27/2013 None Full Exam - General 1995 Constitutional general appearance Overall: well developed 06/28/2013 None Full Exam - General 1994 Constitutional general appearance Overall: in no acute distress 06/28/2013 None Full Exam - General 1995 Constitutional general appearance Overall: well nourished 06/28/2013 None Full Exam - General 1994 Psychiatric orientation/consciousness Overall: oriented to person, place and time 06/28/2013 None Full Exam - General 1994 Integument inspection of skin Location: left leg 06/28/2013 thigh Full Exam - General 1994 Integument inspection of skin Pigmentation: erythematous 06/28/2013 None Full Exam - General 1995 Constitutional general appearance Overall: well developed 01/10/2013 None Full Exam - General 1994 Constitutional general appearance Overall: in no acute distress 01/10/2013 None Full Exam - General 1995 Constitutional general appearance Overall: well nourished 01/10/2013 None Full Exam - General 1994 Eyes pupils and irises Overall: pupils equal, round, reactive to light and accomodation 01/10/2013 None Full Exam - General 1995 Ears/Nose/Throat otoscopic exam Overall: external auditory canals [...] bilaterally 01/10/2013 None Full Exam - General 1995 Respiratory respiratory effort/rhythm Overall: no retractions 01/10/2013 [...] accomodation 11/25/2011 None Full Exam - General 1995 [...] lesions 11/25/2011 None Procedures Procedure Codes Date INJ TRIGGER POINT 10/18 MUSCL CPT-4: 41553 04/30/2019 ADMIN INFLUENZA VIRU S VAC CPT-4: G0008 08/17/2017 FLU VACC PRSV FREE I NC ANTIG CPT-4: 94680 08/17/2017 CA SCREEN;PELVIC/GEETA AST EXAM CPT-4: G0101 03/17/2017 INITIAL PREVENTIVE EXAM CPT-4: G0402 02/19/2016 ADMIN PNEUMOCOCCAL V ACCINE SNOMED CT: 94468083 CPT-4: G0009 02/19/2016 PNEUMOCOCCAL VACC 13 MARLEN IM Formatting Model/CDA Sections, Assigned to SNOMED CT: 70139295 CPT-4: 91092Btfnnzl 02/19/2016 TRIAMCINOLONE ACET I [place] NOS CPT-4: J3301 03/31/2015 THER/PROPH/DIAG INJ SC/IM CPT-4: 77249 03/31/2015 SPECIMEN HANDLING OF FICE-LAB CPT-4: 03441 03/31/2015 Vital Signs Date Vital 04/30/2019 Blood Pressure 1: 130/62 Code: 8480-6 BMI: 23.8 Code: 39535-7 Heart Rate 1: 65 bpm Height: 5'9" SpO2: 98% Weight: 161 lbs 04/11/2018 Blood Pressure 1: 132/80 Code: 8480-6 BMI: 23.6 Code: 54767-6 Heart Rate 1: 63 bpm Height: 5'9" SpO2: 97% Weight: 159 lbs 11 o z 03/17/2017 Blood Pressure 1: 136/78 Code: 8480-6 BMI: 22.7 Code: 73093-9 Heart Rate 1: 57 bpm Height: 5'9" SpO2: 98% Weight: 154 lbs 02/19/2016 Blood Pressure 1: 124/88 Code: 8480-6 BMI: 22.7 Code: 42846-0 Heart Rate 1: 72 bpm Height: 5'9" SpO2: 96% Waist Measure (cm): 89 cm Weight: 154 lbs 02/17/2016 Blood Pressure 1: 118/78 Code: 8480-6 Heart Rate 1: 61 bpm Height: 5'9" SpO2: 98% 03/31/2015 Blood Pressure 1: 138/68 Code: 8480-6 BMI: 23.0 Code: 76046-5 Heart Rate 1: 68 bpm Height: 5'9" Weight: 156 lbs 02/04/2014 Blood Pressure 1: 128/80 Code: 8480-6 BMI: 22.4 Code: 45243-0 Heart Rate 1: 60 bpm Height: 5'9" Weight: 152 lbs 11/29/2013 Blood Pressure 1: 102/64 Code: 8480-6 Heart Rate 1: 70 bpm SpO2: 97% Weight: 151 lbs 08/27/2013 Blood Pressure 1: 138/80 Code: 8480-6 BMI: 22.3 Code: 08732-5 Heart Rate 1: 68 bpm Height: 5'9" Weight: 151 lbs 06/28/2013 Blood Pressure 1: 112/74 Code: 8480-6 BMI: 22.3 Code: 98610-2 Heart Rate 1: 72 bpm Height: 5'9" Weight: 151 lbs 01/10/2013 Blood Pressure 1: 102/64 Code: 8480-6 BMI: 22.4 Code: 94214-5 Heart Rate 1: 64 bpm Height: 5'9" Weight: 152 lbs 11/25/2011 Blood Pressure 1: 102/76 Code: 8480-6 BMI: 23.0 Code: 38353-8 Heart Rate 1: 68 bpm Height: 5'9" Respiratory Rate: 16 bpm Weight: 156 lbs Functional Status No Functional Status data History of Present Illness Symptom Name Status Resu lt Effective Date Notes Lifestyle regular seat belt use 04/30/2019 None Lifestyle family suppo rtive 04/30/2019 None Lifestyle satisfactory work/prison experience 04/30/2019 None Lifestyle normal sleep patterns 04/30/2019 None Lifestyle satisfactory marriage/partner relationship 04/30/2019 None Obstetrical History 2 total pregnancies 04/30/2019 None Nutrition and Exercise normal weight 04/30/2019 None Nutrition and Exercise balanced nutrition 04/30/2019 None Nutrition and Exercise regular diet 04/30/2019 None Health Guidance self-b reast exam 04/30/2019 None Health Guidance regula r mammogram 04/30/2019 None Health Guidance regula r exercise 04/30/2019 None Pap Smear last normal performed on 04-11-18 04/30/2019 None Pap Smear normal results 04/30/2019 None well woman exam (65+ years) Lifestyle regular seatbelt use 04/11/2018 None well woman exam (65+ years) Lifestyle family supportive 04/11/2018 None well woman exam (65+ years) Lifestyle satisfactory work/prison experience 04/11/2018 None well woman exam (65+ [...] well woman exam (65+ years) Lifestyle satisfactory work/prison experience 03/17/2017 None well woman exam (65+ [...] walk dogs daily Annual Medicare Wellness Exam Handli ng Stress usually estefania effectively 02/19/2016 None Annual [...] None well woman exam (40-65 years) Breast /[employer] Rep Complaints menopausal symptoms 01/10/2013 None well woman [...] Encounters Encounter Performer Loca tion Codes Date ([id number]) [id number] EST. P ATIENT, LEVEL IV Diagnosis: Atrophy of thyroid (acquired)[ICD10: E03.4] Diagnosis: Chronic atrial fibrillation[ICD10: I48.2] Heidi Christy MD, C CPT-4: 63955 04/30/2019 ([id number]) 24581 EST. P ATIENT, LEVEL IV Diagnosis: Atrophy of thyroid (acquired)[ICD10: E03.4] Diagnosis: Chronic atrial fibrillation[ICD10: I48.2] Heidi Christy MD, C CPT-4: 59586 04/11/2018 ([id number] EST. P ATIENT, LEVEL IV Diagnosis: Encounter for general adult medical examination without abnormal findings[ICD10: Z00.00] Diagnosis: Hypothyroidism, unspecified[ICD10: E03.9] Diagnosis: Hyperlipidemia, unspecified[ICD10: E78.5] Suzy Christy MD, [facility] CPT-4: 14683 02/17/2016 ([id number]) PREV VISIT E ST AGE 40-64 Diagnosis: Well woman exam with routine gynecological exam[ICD9: V72.31] Suzy Christy MD, [facility] CPT-4: 71030 03/31/2015 ([id number]) PREV VISIT E ST AGE 40-64 Diagnosis: ROUTINE GYNE EXAM[ICD9: V72.31] Heidi Christy MD, [facility] CPT-4: 20104 02/04/2014 ([id number]) 29263 EST. P ATIENT, LEVEL IV Diagnosis: Vaginal bleeding[ICD9: 623.8] [facility] CPT- 4: 74228 11/29/2013 ([id number]) 58444 EST. P ATIENT, LEVEL IV Diagnosis: Abdominal pain[ICD9: 789.00] Diagnosis: Dizziness[ICD9: 780.4] Diagnosis: Weakness[ICD9: 780.79] [facility] CPT-4: 43298 08/27/2013 ([id number]) 58967 EST. P ATIENT, LEVEL III Diagnosis: Tick bite[ICD9: 919.4] [facility] CPT-4: 34135 06/28/2013 ([id number]) PREV VISIT E ST AGE 40-64 Diagnosis: Well woman exam with routine gynecological exam[ICD9: V72.31] Heidi Christy MD, [facility] CPT-4: 36212 01/10/2013 [id number] EST. PATIENT, LEVEL IV Diagnosis: Abnormal Pap smear of cervix[ICD9: 795.00] Diagnosis: Abnormal weight gain[ICD9: 783.1] Heidi Christy MD, [facility] CPT-4: 84542 11/25/2011 Plan of Care Planned Activity Notes C odes Status Date Patient Education: Patient Medication Summary Completed 06/07/2019 Care Plan: SCREENINGMAMMOGRAPHYDIGITAL LOINC : 15057-3 Pending 06/07/2019 Visit Plan: Hypothyroidism - pt wit h chronic hypothyroidism, continue with current medication, will monitor pt to signs or symptoms of lack of adequate supplementation. Pt is to continue with current dose of medication unless directed otherwise. Check labs at regular intervals q 3 months or q 6 months based on previous levels of control. Atrial Fibrillation - pt on chronic anticoagulation and is currently rate controlled. The pt is to have labs done as appropriate to monitor medication levels and is to report if they start to feel as if their heart rate is becoming uncontrolled. Charlotte is having caregiver stress - she is experiencing irritability at times and does not feel like that is her - she really does not want to be on more medications. We have discussed the need for more exercise as a way of relieving stress - she has been encouraged to start walking at her usual fast pace instead of relying on the slower pace of her and dogs as a way to help improve her health/weight and hopefully improve her response to stress as well. 04/30/2019 Visit Plan: Hypothyroidism - pt wit h chronic hypothyroidism, continue with current medication, will monitor pt to signs or symptoms of lack of adequate supplementation. Pt is to continue with current dose of medication unless directed otherwise. Check labs at regular intervals q 3 months or q 6 months based on previous levels of control. Atrial Fibrillation - pt on chronic anticoagulation and is currently rate controlled. The pt is to have labs done as appropriate to monitor medication levels and is to report if they start to feel as if their heart rate is becoming uncontrolled. Trigger Points - Injected trig juli points today, pt given post-injection instructions, signs and symptoms for which to call the office. Pt to use heat to the muscles today, and take an anti- inflammatory today unless otherwise contraindicated by renal function or other disease process. Charlotte is having caregiver stress - she is experiencing irritability at times and does not feel like that is her - she really does not want to be on more medications. We have discussed the need for more exercise as a way of relieving stress - she has been encouraged to start walking at her usual fast pace instead of relying on the slower pace of her and dogs as a way to help improve her health/weight and hopefully improve her response to stress as well. 04/30/2019 Appointment: Heidi Christy WPtel: [address] [place], [place] [id number] (15 min) Moderate 04/30/2019 Patient Education: Patient Medication Summary Completed 04/30/2019 Visit Plan: Hypothyroidism - pt wit h [...] or prn. 04/11/2018 Appointment: Heidi Christy WPtel: [facility] [place] [facility] [place] [id number] [facility] 04/11/2018 Patient Education: Patient Medication Summary Completed 04/11/2018 Appointment: Injection 08/17/2017 Patient Education: Patient Medication Summary Completed 08/17/2017 Visit Plan: Well Adult Female - exa m completed. Pap and breast exam completed. Pt will be called with results of her testing. She was advised to continue with yearly annual exams. Safe sex practices discussed simone ratliff office visit today. Call if any abnormal gynecologic issues during the next year, otherwise, RTC yearly or prn. sample estrace cream 03/17/2017 Visit Plan: Well Adult Female - exa m completed. Pap and breast exam completed. Pt will be called with results of her testing. She was advised to continue with yearly annual exams. Safe sex practices discussed simone ratliff office visit today. Call if any abnormal gynecologic issues during the next year, otherwise, RTC yearly or prn. sample estrace cream 03/17/2017 Visit Plan: Well Adult Female - exa m completed. Pap and breast exam completed. Pt will be called with results of her testing. She was advised to continue with yearly annual exams. Safe sex practices discussed simone ratliff office visit today. Call if any abnormal gynecologic issues during the next year, otherwise, RTC yearly or prn. sample estrace cream 03/17/2017 Patient Education: Patient Medication Summary Completed 03/17/2017 Care Plan: PAP Pending 03/17/2017 Patient Education: Patient Medication Summary Completed 03/10/2016 Visit Plan: Welcome to Medicare Rocio m - today we discussed the patients [...] next year, otherwise, RTC yearly or prn. Ufbxhdpsiidu-vzutm-cwpxokazf today in the office - back exercises [...] next year, otherwise, RTC yearly or prn. Ylxuywzudmkg-betwt-trcnamqio today in the office - back exercises [...] next year, otherwise, RTC yearly or prn. Uzzdtkcbnbcp-nbsle-ixfyrpdko today in the office - back exercises discussed with the patient, pt to continue with anti-inflammatories. Pt is to call if the symptoms do not improve or if they worsen. 03/31/2015 Appointment: Well Woman 03/31/2015 Patient Education: Patient Medication Summary Completed 03/31/2015 Care Plan: [facility] Ordered 03/31/2015 Care Plan: GC/CHL PRB Pending [...] showing improvement. 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 Discussed with patient-plan for pelvic ultrasound-refer to Dr Barth-they will call with pierre duggan. Patient verbalized understanding of plan. 11/29/2013 Appointment: Suzy Mclaughlin WPtel: [address] [place], [place] [phone] Pap Only 11/29/2013 Patient Education: Patient Medication [...] symptoms escalate. 08/27/2013 Appointment: Heidi Christy WPtel: [address] [place], [place] [id number] Other 08/27/2013 Patient Education: Patient Medication Summary [...] of plan. 06/28/2013 Appointment: Suzy Mclaughlin WPtel: [facility] [place] [facility] [place] [phone] Other 06/28/2013 Patient Education: Patient Medication Summary [...] or prn. 01/10/2013 Appointment: [facility]Ptel[facility] [phone] [facility] [facility] 01/10/2013 Patient Education: Patient Medication [...] drinks and increase her exercise. 11/25/2011 Appointment: [facility] Christ[facility] WPtel[facility] [address] [facility] [place] Pap Only 11/25/2011 Patient Education: Patient Medication [...] the drinks and increase her exercise. . Hypothyroidism - p t with chronic hypothyroidism, continue with current medication, will monitor pt to signs or symptoms of lack of adequate supplementation. Pt is to continue with current dose of medication unless directed otherwise. Check labs at regular intervals q 3 months or q 6 months based on previous levels of control. Atrial Fibrillation - pt on chronic anticoagulation and is currently rate controlled. The pt is to have labs done as appropriate to monitor medication levels and is to report if they start to feel as if their heart rate is becoming uncontrolled. Charlotte is having caregiver stress - she is experiencing irritability at times and does not feel like that is her - she really does not want to be on more medications. We have discussed the need for more exercise as a way of relieving stress - she has been encouraged to start walking at her usual fast pace instead of relying on the slower pace of her and dogs as a way to help improve her health/weight and hopefully improve her response to stress as well. . Hypothyroidism - p t with chronic hypothyroidism, continue with current medication, will monitor pt to signs or symptoms of lack of adequate supplementation. Pt is to continue with current dose of medication unless directed otherwise. Check labs at regular intervals q 3 months or q 6 months based on previous levels of control. Atrial Fibrillation - pt on chronic anticoagulation and is currently rate controlled. The pt is to have labs done as appropriate to monitor medication levels and is to report if they start to feel as if their heart rate is becoming uncontrolled. Trigger Points - Injected trigger points today, pt given post-injection instructions, signs and symptoms for which to call the office. Pt to use heat to the muscles today, and take an anti-inflammatory today unless otherwise contraindicated by renal function or other disease process. Charlotte is having caregiver stress - she is experiencing irritability at times and does not feel like that is her - she really does not want to be on more medications. We have discussed the need for more exercise as a way of relieving stress - she has been encouraged to start walking at her usual fast pace instead of relying on the slower pace of her and dogs as a way to help improve her health/weight and hopefully improve her response to stress as well. . Vaginal bleeding- no pelvic pain-pap negative [...] next year, otherwise, RTC yearly or prn. Sslubbkctgkg-ceqec-kvkjpvuag today in the office - back exercises [...] next year, otherwise, RTC yearly or prn. Nyvwpjuepjhh-vslij-njyiprokw today in the office - back exercises [...] next year, otherwise, RTC yearly or prn. Gxpvozhelfpp-acyww-ylhfzqkae today in the office - back exercises discussed with the patient, pt to continue with anti-inflammatories. Pt is to call if the symptoms do not improve or if they worsen.
--- OUTSIDE RECORDS SUMMARY | 2020-04-11 13:03 | XMS REPORT | CCD ---
Author Author Cherelle Christy Organization Heidi Christy MD, [facility] Address [address] [place] [address] Phone Care Team Providers Care Engine Designer Name Role Phone PP Unavailable CCM Unavailable Summary Purpose Interface Exchange Insurance Providers Payer name Policy type / Coverage type Covered democrat ID Effective Begin Date Effective End Date WPS Medicare Part B Medicare Part B [id number] [address] [facility] Part B [id number] Un known Family history Brother Diagnosis Age [...] 1 son 11/25/[address]: 534161290 Nonsmoker 11/25/2011 Has the patient ever used illegal drugs? Unknown Has never used illegal drugs 012 Allergies, Adverse Reactions, Alerts Allergies, Adverse Reactions, Alerts data not found Past Medical History Illness Codes Condition Status Onset Date Resolved Date Encounter for gyneco logical examination (general) (routine) without abnormal findings ICD-9: V72.31 ICD-10: Z01.419 Active 03/17/2017 Unknown Encounter for screen ing mammogram for malignant neoplasm of breast ICD-9: V76.12 ICD-10: Z12.31 Active 03/09/2016 Unknown Encounter for genera l adult medical [...] Effectiv e Dates Condition Status Encounter for gyneco logical examination (general) (routine) without abnormal findings ICD-9: V72.31 ICD-10: Z01.419 03/17/2017 Active Encounter for screen ing mammogram for malignant neoplasm of breast ICD-9: V76.12 ICD-10: Z12.31 03/09/2016 Active Encounter for genera l adult medical [...] Date Stop Date Sta tus Fill Instructions gabapentin 300 mg ca psule RxNorm: 854511 1 cap(s) po tid,Instr :for neuropathic pain 03/31/2017 No Stop Date Active pravastatin 10 mg ta blet RxNorm: 702589 TAKE 1 TABLET BY MOUT H AT BEDTIME 09/20/2016 03/18/2017 In active Generic For:PRAVACHOL 10MG 09/20/2016 9 :01:58 AM Synthroid 50 mcg tablet RxNorm: 816074 TAKE 1 TABLET BY MOUTH DAILY 07/22/2016 07/16/2017 Active Generic For:SYNTHROID 50MCG TAB 016 9:11:52 AM pravastatin 10 mg ta blet RxNorm: 086727 TAKE 1 TABLET BY MOUT H AT BEDTIME 03/23/2016 09/18/2016 In active Generic For:PRAVACHOL 10MG pravastatin 10 mg ta blet RxNorm: 631926 TAKE 1 TABLET BY MOUT H AT BEDTIME 09/26/2015 03/22/2016 In active Generic For:PRAVACHOL 10MG 09/26/2015 1 :46:52 PM Synthroid 50 mcg tablet RxNorm: 150194 1 Tablet(s) PO daily 07/24/2015 07/17/2016 Inactive Kenalog 40 mg/mL bernard pension for injection RxNorm: 1039155 1 Milliliter(s) Inj 03/31/2015 03/31/2015 In active pravastatin 10 mg ta blet RxNorm: 732128 TAKE 1 TABLET BY MOUT H AT BEDTIME 03/31/2015 09/25/2015 In active Generic For:PRAVACHOL 10MG 03/29/2015 8 :51:39 AM pravastatin 10 mg ta blet RxNorm: 889395 1 Tablet(s) PO QHS (n eeds appt for further refills) 02/27/2015 03/28/2015 Inactive [SAVINGS FOR NON-COVERED DR UGS -- BIN:204514, PCN: [id number], Group: XXXXX, ID# [id number], Questions: . THIS IS NOT INSURANCE.] pravastatin 10 mg ta blet RxNorm: 934326 1 Tablet(s) PO QHS (n eeds appt for further refills) 01/28/2015 02/26/2015 Inactive [SAVINGS FOR NON-COVERED DR UGS -- BIN:326038, PCN: [id number], Group: XXXXX, ID# [id number], Questions: . THIS IS NOT INSURANCE.] pravastatin 10 mg ta blet RxNorm: 961513 1 Tablet(s) PO QHS 07/18/2014 01/13/2015 Inactive Synthroid 50 mcg tablet RxNorm: 799255 1 Tablet(s) PO daily 05/31/2014 05/25/2015 Inactive acyclovir 400 mg tablet RxNorm: 077503 1 Tablet(s) PO QID 05/31/2014 06/19/2014 Inactive Prozac 10 mg capsule RxNorm: 271043 1 Capsule(s) PO QPM 02/04/2014 02/16/2016 Inactive may dispense generic CombiPatch 0.05 mg-0 .14 mg/24 hr transdermal RxNorm: 3196075 1 Patch TD BIW 12/25/2013 01/23/2014 In active pravastatin 10 mg ta blet RxNorm: 413169 1 Tablet(s) PO QHS 12/20/2013 06/17/2014 Inactive medroxyprogesterone 5 mg tablet RxNorm: 0124840 Tablet(s) PO TAKE 1 TABLET ONCE DAILY 10 DAYS PER MONTH 09/24/2013 12/24/2013 Inactive Premarin 0.3 mg tablet RxNorm: 431308 Tablet(s) PO TAKE 1 TABLET BY MOUTH ONCE DAILY. 09/24/2013 12/24/2013 Inactive doxycycline hyclate 100 mg tablet RxNorm: 511867 1 Tablet(s) PO BID 06/28/2013 07/04/2013 Inactive pravastatin 10 mg ta blet RxNorm: 552779 1 Tablet(s) PO QHS 05/31/2013 11/26/2013 Inactive Synthroid 50 mcg tablet RxNorm: 773875 1 Tablet(s) PO daily 03/22/2013 03/21/2013 Inactive Synthroid 50 mcg tablet RxNorm: 299392 1 Tablet(s) PO daily 03/22/2013 03/16/2014 Inactive pravastatin 10 mg ta blet RxNorm: 685055 1 Tablet(s) PO QHS 01/15/2013 05/14/2013 Inactive Synthroid 25 mcg tablet RxNorm: 375793 1 Tablet(s) PO daily 01/15/2013 03/22/2013 Inactive brand name only pravastatin 10 mg ta blet RxNorm: 230656 1 Tablet(s) PO QHS 01/15/2013 01/14/2013 Inactive Climara Pro 0.045 mg -0.015 mg/24 hr Transderm Patch RxNorm: 403808 1 Application TD QW 01/10/2013 08/26/2013 Inactive Synthroid 25 mcg tablet RxNorm: 977203 1 Tablet(s) PO daily 01/10/2013 01/14/2013 Inactive acyclovir 400 mg tablet RxNorm: 933311 1 Tablet(s) PO QID 10/31/2012 11/09/2012 Inactive levothyroxine 25 mcg tablet RxNorm: 461472 1 Tablet(s) PO daily 09/05/2012 01/10/2013 Inactive medroxyprogesterone 5 mg tablet RxNorm: 1057873 Tablet(s) PO 02/09/2012 01/10/2013 Inactive TAKE 1 TABLET ONCE DAILY 10 DAYS PER Tue Premarin 0.3 mg tablet RxNorm: 671035 1 Tablet(s) PO daily 01/31/2012 01/10/2013 Inactive levothyroxine 25 mcg tablet RxNorm: 213709 1 Tablet(s) PO daily 01/20/2012 07/17/2012 Inactive levothyroxine 25 mcg Tab RxNorm: 034306 1 Tablet(s) PO daily 07/01/2011 07/30/2011 Inactive aspirin 325 mg Tab RxNorm: 422796 1 Tablet(s) PO daily No Start Date Active gabapentin 300 mg ca psule RxNorm: 744716 1 Capsule(s) PO TID No Start Date 03/30/2017 Inactive Carafate 1 gram tablet RxNorm: 903621 1 Tablet(s) PO QID No Start Date 02/16/2016 Inactive medroxyprogesterone 5 mg Tab RxNorm: 2488423 1 Tablet(s) PO daily No Start Date 02/08/2012 Inactive Dexilant 60 mg capsu le, delayed release RxNorm: 740361 1 Capsule(s) PO daily No Start Date 02/16/2016 Inactive Premarin 0.3 mg Tab RxNorm: 432564 1 Tablet(s) PO daily No Start Date 01/30/2012 Inactive Motrin IB 200 mg Tab RxNorm: 129941 1 Tablet(s) PO daily No Start Date 02/16/2016 Inactive Fish Oil 1,000 mg Cap RxNorm: 1 Capsule(s) PO daily No Start Date 02/16/2016 Inactive niacin 500 mg Tab RxNorm: 369284 1 Tablet(s) PO daily No Start Date 02/16/2016 Inactive Medication Administered Medication Codes Instruc tions Start Date Status Kenalog 40 mg/mL suspension for injection RxNorm: 4963487 1Milliliter 03/31/2015 N o longer Active Immunizations Vaccine Codes Date Status Pneumococcal (Adult) CVX: 133 02/19/2016 completed Assessments Condition Codes Effectiv e Dates Encounter for gynecological examination (general) (routine) without abnormal findings ICD-10: Z01.419 ICD-9: V72.31 03/17/2017 Encounter for screening mammogram for ma lignant neoplasm of breast ICD-10: Z12.31 ICD-9: V76.12 03/17/2017 Encounter for general adult medical exam ination [...] Dates Notes well woman exam (65+ years) 03/17/2017 Annual Medicare Wellness Exam 02/19/2016 well woman exam (40-65 years) 02/17/2016 well woman exam (40-65 years) 03/31/2015 right leg well woman exam (40-65 years) 02/04/2014 vaginal bleeding 11/29/2013 dizziness 08/27/2013 arthropod bite 06/28/2013 well woman exam (40-65 years) 01/10/2013 Pap smear abnormality 11/25/2011 Results Observation Observation Code Item Item Code Result Date Lipid Ord30 CHOL 173 mg/dL 03/18/2017 Lipid Ord30 HDL 51.0 mg/dl 03/18/2017 Lipid Ord30 TRIG 89 mg/dL 03/18/2017 Lipid Ord30 LDL 104 mg/dL 03/18/2017 Lipid Ord30 C/HDL 3.4 Ratio 03/18/2017 Free T4 Wip525 FREE T4 0.94 ng/dL 03/18/2017 Cbc With Differential Ord2 WBC 5.69 K/ul 03/18/2017 Cbc With Differential Ord2 RBC 4.68 M/ul 03/18/2017 Cbc With Differential Ord2 HGB 13.5 g/dl 03/18/2017 Cbc With Differential Ord2 HCT 41.2 % 03/18/2017 Cbc With Differential Ord2 Neut% 59.3 % 03/18/2017 Cbc With Differential Ord2 Lymph% 30.9 % 03/18/2017 Cbc With Differential Ord2 MCV 88.0 fl 03/18/2017 Cbc With Differential Ord2 Ford% 7.7 % 03/18/2017 Cbc With Differential Ord2 MCH 28.8 pg 03/18/2017 Cbc With Differential Ord2 Eos% 1.6 % 03/18/2017 Cbc With Differential Ord2 MCHC 32.8 pg 03/18/2017 Cbc With Differential Ord2 PLT 264 K/ul 03/18/2017 Cbc With Differential Ord2 Baso% 0.5 % 03/18/2017 Cbc With Differential Ord2 Neut ABS# 3.37 K/ul 03/18/2017 Cbc With Differential Ord2 RDW 14.1 % 03/18/2017 Cbc With Differential Ord2 Lymph ABS# 1.76 K/ul 03/18/2017 Cbc With Differential Ord2 Ford ABS# 0.4 K/ul 03/18/2017 Cbc With Differential Ord2 Eos ABS# 0.1 K/ul 03/18/2017 Cbc With Differential Ord2 Baso ABS# 0.0 K/ul 03/18/2017 Tsh Ord6 hTSH II 1.47 uIU/mL 03/18/2017 Comp Metabolic Rvw624 NA 140 mEq/L 03/18/2017 Comp Metabolic Czv909 K 4.4 mEq/L 03/18/2017 Comp Metabolic Zba706 CL 105 mEq/L 03/18/2017 Comp Metabolic Haz008 CO2 29.0 mEq/L 03/18/2017 Comp Metabolic Rez384 AN ION GAP 10 03/18/2017 Comp Metabolic Onz557 GL UCOSE 89 mg/dL 03/18/2017 Comp Metabolic Ytr337 Cr eat 0.7 mg/dL 03/18/2017 Comp Metabolic Owl788 eG FR 86 ml/min/1.73m2 03/18 Comp Metabolic Orn617 BUN 13 mg/dL 03/18/2017 Comp Metabolic Qlj236 B/ C Ratio 18.1 Ratio 03/18/2017 Comp Metabolic Uqe234 CA LCIUM 8.8 mg/dL 03/18/2017 Comp Metabolic Qob550 AL K PHOS 77 U/L 03/18/2017 Comp Metabolic Wdv176 T(SGOT) 25 U/L 03/18/2017 Comp Metabolic Pzw890 AL T(SGPT) 18 U/L 03/18/2017 Comp Metabolic Hai739 BI LI T 0.8 mg/dL 03/18/2017 Comp Metabolic Wph228 AL BUMIN 4.0 g/dL 03/18/2017 Comp Metabolic Ced853 TP RO 6.1 g/dL 03/18/2017 Comp Metabolic Kdm617 GL OB 2.1 g/dL 03/18/2017 Comp Metabolic Jgy037 A/ G Ratio 1.9 Ratio 03/18/2017 Comp Metabolic Txk617 Os mo 279 mOsmo 03/18/2017 Lipid Ord30 CHOL 182 mg/dL 02/17/2016 Lipid Ord30 HDL 56.0 mg/dl 02/17/2016 Lipid Ord30 TRIG 80 mg/dL 02/17/2016 Lipid Ord30 LDL 110 mg/dL 02/17/2016 Lipid Ord30 C/HDL 3.3 Ratio 02/17/2016 Free T4 Sbt423 FREE T4 1.00 ng/dL 02/17/2016 Tsh Ord6 hTSH II 2.03 uIU/mL 02/17/2016 Comp Metabolic Rfe533 NA 140 mEq/L 02/17/2016 Comp Metabolic Wit857 K 3.8 mEq/L 02/17/2016 Comp Metabolic Gkb779 CL 104 mEq/L 02/17/2016 Comp Metabolic Rbq566 CO2 32.0 mEq/L 02/17/2016 Comp Metabolic Vzu971 AN ION GAP 8 02/17/2016 Comp Metabolic Knk369 GL UCOSE 96 mg/dL 02/17/2016 Comp Metabolic Rrj316 Cr eat 0.8 mg/dL 02/17/2016 Comp Metabolic Qfu420 eG FR 76 ml/min/1.73m2 02/16 Comp Metabolic Pig255 BUN 14 mg/dL 02/17/2016 Comp Metabolic Fdm713 B/ C Ratio 17.5 Ratio 02/17/2016 Comp Metabolic Igi541 CA LCIUM 9.4 mg/dL 02/17/2016 Comp Metabolic Udj283 AL K PHOS 66 U/L 02/17/2016 Comp Metabolic Clq354 T(SGOT) 16 U/L 02/17/2016 Comp Metabolic Itv342 AL T(SGPT) 13 U/L 02/17/2016 Comp Metabolic Yao907 BI LI T 0.8 mg/dL 02/17/2016 Comp Metabolic Ohh975 AL BUMIN 4.3 g/dL 02/17/2016 Comp Metabolic Lwg644 TP RO 6.3 g/dL 02/17/2016 Comp Metabolic Erm713 GL OB 2.0 g/dL 02/17/2016 Comp Metabolic Ffy498 A/ G Ratio 2.2 Ratio 02/17/2016 Comp Metabolic Ruy725 Os mo 280 mOsmo 02/17/2016 Cbc With [...] 28.8 pg 02/17/2016 Cbc With Differential Ord2 Ford% 9.4 % 02/17/2016 Cbc With Differential Ord2 Eos% 2.4 % 02/17/2016 Cbc With Differential Ord2 MCHC 33.2 pg 02/17/2016 Cbc With Differential Ord2 Baso% 0.6 % 02/17/2016 Cbc With Differential Ord2 PLT 262 K/ul 02/17/2016 Cbc With Differential Ord2 RDW 14.3 % 02/17/2016 Cbc With Differential Ord2 Neut ABS# 2.68 K/ul 02/17/2016 Cbc With Differential Ord2 Lymph ABS# 2.09 K/ul 02/17/2016 Cbc With Differential Ord2 Ford ABS# 0.5 K/ul 02/17/2016 Cbc With Differential Ord2 Eos ABS# 0.1 K/ul 02/17/2016 Cbc With Differential Ord2 Baso ABS# 0.0 K/ul 02/17/2016 Cbc With Differential Ord2 New Analyzer Notice Please note new ref ranges s tarting 10-29-2015 due to implemntation of new five part differential hematolgy analyzer. 02/17/2016 GC/CHL PRB [id number] CHLM PROBE NEG 04/01/2015 GC/CHL PRB [id number] GC HI OBE NEG 04/01/2015 GC/CHL PRB 0172005 CHLM PROBE NEG 02/05/2014 GC/CHL PRB 3959587 GC HI OBE NEG 02/05/2014 Review of Systems System Result Effective Dates Constitutional No night sweats 03/17/2017 Constitutional No [...] developed 08/27/2013 None Full Exam - General 1995 Constitutional general appearance Hygiene/Attention to Grooming: good hygiene 08/27/2013 None Full Exam - General 1995 Eyes conjunctiva/eyelids Overall: conjunctiva clear 08/27/2013 None Full Exam - General 1995 Eyes conjunctiva/eyelids Overall: cornea clear 08/27/2013 None Full Exam - General 1995 Eyes conjunctiva/eyelids Overall: eyelids normal 08/27/2013 None [...] retractions 08/27/2013 None Full Exam - General 1995 Respiratory respiratory effort/rhythm Overall: normal rate 08/27/2013 None Full Exam - General 1995 Cardiovascular extremities Overall: no clubbing 08/27/2013 None Full Exam - General 1995 Cardiovascular auscultation of heart Overall: normal heart [...] abnormalities 08/27/2013 None Full Exam - General 1995 Neurologic deep tendon reflexes Overall: deep tendon [...] 1995 Ears/Nose/Throat oral cavity/pharynx/larynx Overall: no masses 01/10/2013 [...] 01/10/2013 palpable implants Full Exam - General 1995 Chest/Breast breast and axillae palpation Overall: no nipple discharge 01/10/2013 None Full Exam - General 1995 Constitutional general appearance Overall: well nourished 11/25/2011 None Full Exam - General 1995 Constitutional general appearance Overall: well developed 11/25/2011 None Full Exam - General 1995 Constitutional general appearance Overall: in no acute [...] lesions 11/25/2011 None Procedures Procedure Codes Date INITIAL PREVENTIVE E XAM CPT-4: O8469Rjlciec 02/19/2016 ADMIN PNEUMOCOCCAL V ACCINE SNOMED CT: 97483846 CPT-4: G1762Zujbhay 02/19/2016 PNEUMOCOCCAL VACC 13 MARLEN IM Formatting Model/CDA Sections, Assigned to SNOMED CT: 78272383 CPT-4: 55854Cvvugpq 02/19/2016 TRIAMCINOLONE ACET I [place] NOS CPT-4: J8693Knkgezk 03/31/2015 THER/PROPH/DIAG INJ SC/IM CPT-4: 02915Qlresjl 03/31/2015 SPECIMEN HANDLING OF FICE-LAB CPT-4: 12915Xtbykti 03/31/2015 Vital Signs Date Vital 03/17/2017 Blood Pressure 1: 136/78 Code: 8480-6 BMI: 22.7 Code: 86879-3 Heart Rate 1: 57 bpm Height: 5'9" SpO2: 98% Weight: 154 lbs 02/19/2016 Blood Pressure 1: 124/88 Code: 8480-6 BMI: 22.7 Code: 29596-8 Heart Rate 1: 72 bpm Height: 5'9" SpO2: 96% Waist Measure (cm): 89 cm Weight: 154 lbs 02/17/2016 Blood Pressure 1: 118/78 Code: 8480-6 Heart Rate 1: 61 bpm Height: 5'9" SpO2: 98% 03/31/2015 Blood Pressure 1: 138/68 Code: 8480-6 BMI: 23.0 Code: 85935-1 Heart Rate 1: 68 bpm Height: 5'9" Weight: 156 lbs 02/04/2014 Blood Pressure 1: 128/80 Code: 8480-6 BMI: 22.4 Code: 95221-1 Heart Rate 1: 60 bpm Height: 5'9" Weight: 152 lbs 11/29/2013 Blood Pressure 1: 102/64 Code: 8480-6 Heart Rate 1: 70 bpm SpO2: 97% Weight: 151 lbs 08/27/2013 Blood Pressure 1: 138/80 Code: 8480-6 BMI: 22.3 Code: 45311-3 Heart Rate 1: 68 bpm Height: 5'9" Weight: 151 lbs 06/28/2013 Blood Pressure 1: 112/74 Code: 8480-6 BMI: 22.3 Code: 65304-2 Heart Rate 1: 72 bpm Height: 5'9" Weight: 151 lbs 01/10/2013 Blood Pressure 1: 102/64 Code: 8480-6 BMI: 22.4 Code: 62503-0 Heart Rate 1: 64 bpm Height: 5'9" Weight: 152 lbs 11/25/2011 Blood Pressure 1: 102/76 Code: 8480-6 BMI: 23.0 Code: 18160-7 Heart Rate 1: 68 bpm Height: 5'9" Respiratory Rate: 16 bpm Weight: 156 lbs Functional Status No Functional Status data History of Present Illness Symptom Name Status Resu lt Effective Date Notes well woman exam (65+ years) Pap Smear [...] well woman exam (65+ years) Lifestyle satisfactory work/correction experience 03/17/2017 None well woman exam (65+ [...] 200) 02/19/2016 None Annual Medicare Wellness Exam Depres jessie (last 6 months) almost never 02/19/2016 [...] None well woman exam (40-65 years) 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 P ATIENT, LEVEL IV Diagnosis: Encounter for gynecological examination (general) (routine) without abnormal findings[ICD10: Z01.419] Diagnosis: Encounter for screening mammogram for malignant neoplasm of breast[ICD10: Z12.31] [facility] CPT-4: 59763 03/17/2017 ([id number]) 68256 EST. P ATIENT, LEVEL IV Diagnosis: Encounter for general adult medical examination without abnormal findings[ICD10: Z00.00] Diagnosis: Hypothyroidism, unspecified[ICD10: E03.9] Diagnosis: Hyperlipidemia, unspecified[ICD10: E78.5] [facility] CPT-4: 12228 02/17/2016 ([id number]) PREV VISIT E ST AGE 40-64 Diagnosis: Well woman exam with routine gynecological exam[ICD9: V72.31] [facility] CPT-4: 27077 03/31/2015 ([id number]) PREV VISIT E ST AGE 40-64 Diagnosis: ROUTINE GYNE EXAM[ICD9: V72.31] [facility] CPT-4: 59908 02/04/2014 ([id number]) 24164 EST. P ATIENT, LEVEL IV Diagnosis: Vaginal bleeding[ICD9: 623.8] [facility] CPT- 4: 55026 11/29/2013 ([id number]) 99361 EST. P ATIENT, LEVEL IV Diagnosis: Abdominal pain[ICD9: 789.00] Diagnosis: Dizziness[ICD9: 780.4] Diagnosis: Weakness[ICD9: 780.79] [facility] CPT-4: 84819 08/27/2013 ([id number]) 41769 EST. P ATIENT, LEVEL III Diagnosis: Tick bite[ICD9: 919.4] [facility] CPT-4: 20428 06/28/2013 ([id number]) PREV VISIT E ST AGE 40-64 Diagnosis: Well woman exam with routine gynecological exam[ICD9: V72.31] [facility] CPT-4: 90506 01/10/2013 76956 EST. PATIENT, LEVEL IV Diagnosis: Abnormal Pap smear of cervix[ICD9: 795.00] Diagnosis: Abnormal weight gain[ICD9: 783.1] [facility] CPT-4: 44308 11/25/2011 Plan of Care Planned Activity Notes C odes Status Date Visit Plan: Well Adult Female - exam com pleted. Pap and breast exam completed. Pt will be called with results of her testing. She was advised to continue with yearly annual exams. Safe sex practices discussed during office visit today. Call if any abnormal gynecologic issues during the next year, otherwise, RTC yearly or prn.sample estrace cream 03/17/2017 Patient Education: Patient Medication Summary Completed 03/17/2017 Care Plan: [facility] 85509[facility]2 Pending 03/17/2017 Care Plan: PAP Pending 03/17/2017 Patient Education: Patient Medication Summary Completed 03/10/2016 Visit Plan: Welcome to Medicare Exam - t aretha we discussed the patients past history, immunizations, [...] Visit Plan: Well Adult - pt was counsele d about diet, exercise, and encouraged to follow a heart healthy diet and increase activity level. The patient was instructed to RTC yearly for well adult exams and PRN for acute illnesses. The pt was also instructed to have yearly labs for check of cholesterol, thyroid, chem panel, CBC, and renal functioning.Hypothyroidism - pt with chronic hypothyroidism, continue with current medication, will monitor pt to signs or symptoms of lack of adequate supplementation. Pt is to continue with current dose of medication unless directed otherwise. Check labs at regular intervals wither q 3 months or q 6 months based on previous levels of control.Hyperlipidemia - pt has been counseled about appropriate [...] 02/16/2016 Visit Plan: Well Adult Female - exam co mpleted. Pap and gc/chlamydia and breast exam completed. Pt will be called with results of her testing. She was advised to continue with yearly annual exams. Safe sex practices discussed during office visit today. Call if any abnormal gynecologic issues during the next year, otherwise, RTC yearly or prn.Bxrqnmjbueck-rmdyh-tazpnkgtj today in the office - back exercises discussed with the patient, pt to continue with anti-inflammatories. Pt is to call if the symptoms do not improve or if they worsen. 03/31/2015 Visit Plan: Well Adult Female - exam co mpleted. Pap and gc/chlamydia and breast exam completed. Pt will be called with results of her testing. She was advised to continue with yearly annual exams. Safe sex practices discussed during office visit today. Call if any abnormal gynecologic issues during the next year, otherwise, RTC yearly or prn.Ggsglsnxiixl-evjyo-nmtsjbkeh today in the office - back exercises discussed with the patient, pt to continue with anti-inflammatories. Pt is to call if the symptoms do not improve or if they worsen. 03/31/2015 Visit Plan: Well Adult Female - exam co mpleted. Pap and gc/chlamydia and breast exam completed. Pt will be called with results of her testing. She was advised to continue with yearly annual exams. Safe sex practices discussed during office visit today. Call if any abnormal gynecologic issues during the next year, otherwise, RTC yearly or prn.Pggvwjpxptaa-dnmgx-xhdnamcyf today in the office - back exercises discussed with the patient, pt to continue with anti-inflammatories. Pt is to call if the symptoms do not improve or if they worsen. 03/31/2015 Appointment: [facility] 03/31/2015 Patient Education: Patient Medication Summary Completed 03/31/2015 Care Plan: COMPLETE CBC AUTOMATED LOINC : 57534-5 Ordered 03/31/2015 Care Plan: GC/CHL PRB Pending 03/31/2015 Care Plan: PAP Pending 03/31/2015 Visit Plan: Well Adult Female - exam co mpleted. Pap and gc/chlamydia and breast exam completed. Pt will be called with results of her testing. She was advised to continue with yearly annual exams. Safe sex practices discussed during office visit today. Call if any abnormal gynecologic issues during the next year, otherwise, RTC yearly or prn.Hot Flashes - recommended starting on low dose of prozac - 10mg daily - monitor symptoms, and call if not showing improvement. 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 Discussed with patient-plan for pelvic ultrasound-refer to Dr Barth-they will call with appointment. Patient verbalized understanding of plan. 11/29/2013 Appointment: Suzy Mclaughlin WPtel: [address] [place], [place] [phone] [place] Pap Only 11/29/2013 Patient Education: Patient Medication Summary Completed 11/29/2013 Visit Plan: Abdominal discomfort - recom mended to decrease dose of aspirin.Dizziness/Weakness - stop hormone - recommended eval by cardiology - check out ECHO to see if heart valve problem has worsened.Referral for stress test with cardiology.Pt is to call if her symptoms worsen acutely.I would recommend waiting for CT scan unless symptoms escalate. 08/27/2013 Appointment: [facility] Christy WPtel: [phone] Other 08/27/2013 Patient Education: Patient Medication Summary Completed 08/27/2013 Visit Plan: Tick bite-start oral antibio tics as directed, return to clinic as previously directed, call for acute change in symptoms, worsening redness, warmth, discharge. Discuss s/s of tick illness and instructed patient to call if any symptoms develop. RX for doxycycline sent to patient's pharmacy. Patient verbalized understanding of plan. 06/28/2013 Appointment: Suzy Mclaughlin WPtel: [phone] [phone] Other 06/28/2013 Patient Education: Patient Medication Summary Completed 06/28/2013 Visit Plan: Well Adult Female - exam co mpleted. Pap and gc/chlamydia and breast exam completed. Pt will be called with results of her testing. She was advised to continue with yearly annual exams. Safe sex practices discussed during office visit today. Call if any abnormal gynecologic issues during the next year, otherwise, RTC yearly or prn. 01/10/2013 Appointment: [facility]idi Christy WPtel: [facility] [facility] Woman 01/10/2013 Patient Education: Patient Medication Summary Completed 01/10/2013 Care Plan: GC/CHL PRB Pending 01/10/2013 Visit Plan: Repeat Pap obtained today - pt has not had recurrent vaginal lesions - Treatment with acyclovir has resolved the lesions. I suspect she contracted the lesions from oral sex while her partner had an outbreak of oral herpes simplex.Overweight - pt has gained 5 pounds in the past few months. She has been drinking mocha frappe's sometimes twice a week- we have discussed the fat and caloric content of those specific drinks - over 20 grams of fat and 450 calories. She is going to stop the drinks and increase her exercise. 2011 Appointment: Heidi Christy WPtel: [phone] [facility] Pap Only 11/25/2011 Patient Education: Patient Medication [...] to maintain independence in the home. . Well Adult Female - exam completed. Pap and gc/chlamydia and breast exam completed. Pt will be called with results of her testing. She was advised to continue with yearly annual exams. Safe sex practices discussed during office visit today. Call if any abnormal gynecologic issues during the next year, otherwise, RTC yearly or prn. Lvmvejyqfqle-garim-nqiuxymmx today in the office - back exercises [...] next year, otherwise, RTC yearly or prn. Uiksgqnhdlmv-hbtte-thaxwarzk today in the office - back exercises [...] next year, otherwise, RTC yearly or prn. Rwpvragoxnyh-zvrtd-htytyrpbm today in the office - back exercises discussed with the patient, pt to continue with anti-inflammatories. Pt is to call if the symptoms do not improve or if they worsen.
--- OUTSIDE RECORDS SUMMARY | 2020-04-11 13:04 | XMS REPORT | CCD ---
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 Name Role Phone PP Unavailable CCM Unavailable Summary Purpose Interface Exchange Insurance Providers Payer name Policy type / Coverage type Covered alliance party ID Effective Begin Date Effective End Date WPS Medicare Part B Medicare Part B [id number] 2015 Unknown [facility] Part B [id number] Un known Family history Brother Diagnosis Age [...] 1 son 11/25/[address]: 715232480 Nonsmoker 11/25/2011 Has the patient ever used [...] Instructions pravastatin 10 mg ta blet RxNorm: 941712 TAKE 1 TABLET BY MOUT H AT BEDTIME 09/20/2016 03/18/2017 In active Generic For:PRAVACHOL 10MG 09/20/2016 9 :01:58 AM Synthroid 50 mcg tablet RxNorm: 875084 TAKE 1 TABLET BY MOUTH DAILY 07/22/2016 07/16/2017 Active Generic For:SYNTHROID 50MCG TAB 016 9:11:52 AM pravastatin 10 mg ta blet RxNorm: 153746 TAKE 1 TABLET BY MOUT H AT BEDTIME 03/23/2016 09/18/2016 In active Generic For:PRAVACHOL 10MG pravastatin 10 mg ta blet RxNorm: 536310 TAKE 1 TABLET BY MOUT H AT BEDTIME 09/26/2015 03/22/2016 In active Generic For:PRAVACHOL 10MG 09/26/2015 1 :46:52 PM Synthroid 50 mcg tablet RxNorm: 987984 1 Tablet(s) PO daily 07/24/2015 07/17/2016 Inactive Kenalog 40 mg/mL ebrnard pension for injection RxNorm: 1086792 1 Milliliter(s) Inj 03/31/2015 03/31/2015 In active pravastatin 10 mg ta blet RxNorm: 127156 TAKE 1 TABLET BY MOUT H AT BEDTIME 03/31/2015 09/25/2015 In active Generic For:PRAVACHOL 10MG 03/29/2015 8 :51:39 AM pravastatin 10 mg ta blet RxNorm: 522072 1 Tablet(s) PO QHS (n eeds appt for further refills) 02/27/2015 03/28/2015 Inactive [SAVINGS FOR NON-COVERED DR UGS -- BIN:669626, PCN: [id number], Group: XXXXX, ID# XXXXXXX, Questions: . THIS IS NOT INSURANCE.] pravastatin 10 mg ta blet RxNorm: 861023 1 Tablet(s) PO QHS (n eeds appt for further refills) 01/28/2015 02/26/2015 Inactive [SAVINGS FOR NON-COVERED DR UGS -- BIN:586150, PCN: [id number], Group: XXXXX, ID# XXXXXXX, Questions: . THIS IS NOT INSURANCE.] pravastatin 10 mg ta blet RxNorm: 236100 1 Tablet(s) PO QHS 07/18/2014 01/13/2015 Inactive Synthroid 50 mcg tablet RxNorm: 930285 1 Tablet(s) PO daily 05/31/2014 05/25/2015 Inactive acyclovir 400 mg tablet RxNorm: 857441 1 Tablet(s) PO QID 05/31/2014 06/19/2014 Inactive Prozac 10 mg capsule RxNorm: 143655 1 Capsule(s) PO QPM 02/04/2014 02/16/2016 Inactive may dispense generic CombiPatch 0.05 mg-0 .14 mg/24 hr transdermal RxNorm: 8992024 1 Patch TD BIW 12/25/2013 01/23/2014 In active pravastatin 10 mg ta blet RxNorm: 666286 1 Tablet(s) PO QHS 12/20/2013 06/17/2014 Inactive medroxyprogesterone 5 mg tablet RxNorm: 5153192 Tablet(s) PO TAKE 1 TABLET ONCE DAILY 10 DAYS PER MONTH 09/24/2013 12/24/2013 Inactive Premarin 0.3 mg tablet RxNorm: 402649 Tablet(s) PO TAKE 1 TABLET BY MOUTH ONCE DAILY. 09/24/2013 12/24/2013 Inactive doxycycline hyclate 100 mg tablet RxNorm: 604897 1 Tablet(s) PO BID 06/28/2013 07/04/2013 Inactive pravastatin 10 mg ta blet RxNorm: 048864 1 Tablet(s) PO QHS 05/31/2013 11/26/2013 Inactive Synthroid 50 mcg tablet RxNorm: 628934 1 Tablet(s) PO daily 03/22/2013 03/21/2013 Inactive Synthroid 50 mcg tablet RxNorm: 476295 1 Tablet(s) PO daily 03/22/2013 03/16/2014 Inactive pravastatin 10 mg ta blet RxNorm: 889338 1 Tablet(s) PO QHS 01/15/2013 05/14/2013 Inactive Synthroid 25 mcg tablet RxNorm: 513199 1 Tablet(s) PO daily 01/15/2013 03/22/2013 Inactive brand name only pravastatin 10 mg ta blet RxNorm: 138954 1 Tablet(s) PO QHS 01/15/2013 01/14/2013 Inactive Climara Pro 0.045 mg -0.015 mg/24 hr Transderm Patch RxNorm: 596386 1 Application TD QW 01/10/2013 08/26/2013 Inactive Synthroid 25 mcg tablet RxNorm: 422566 1 Tablet(s) PO daily 01/10/2013 01/14/2013 Inactive acyclovir 400 mg tablet RxNorm: 470931 1 Tablet(s) PO QID 10/31/2012 11/09/2012 Inactive levothyroxine 25 mcg tablet RxNorm: 691598 1 Tablet(s) PO daily 09/05/2012 01/10/2013 Inactive medroxyprogesterone 5 mg tablet RxNorm: 8769336 Tablet(s) PO 02/09/2012 01/10/2013 Inactive TAKE 1 TABLET ONCE DAILY 10 DAYS PER Tue Premarin 0.3 mg tablet RxNorm: 714003 1 Tablet(s) PO daily 01/31/2012 01/10/2013 Inactive levothyroxine 25 mcg tablet RxNorm: 969281 1 Tablet(s) PO daily 01/20/2012 07/17/2012 Inactive levothyroxine 25 mcg Tab RxNorm: 946612 1 Tablet(s) PO daily 07/01/2011 07/30/2011 Inactive gabapentin 300 mg ca psule RxNorm: 418714 1 Capsule(s) PO TID No Start Date Active aspirin 325 mg Tab RxNorm: 110574 1 Tablet(s) PO daily No Start Date Active Carafate 1 gram tablet RxNorm: 931382 1 Tablet(s) PO QID No Start Date 02/16/2016 Inactive medroxyprogesterone 5 mg Tab RxNorm: 2992299 1 Tablet(s) PO daily No Start Date 02/08/2012 Inactive Dexilant 60 mg capsu le, delayed release RxNorm: 211019 1 Capsule(s) PO daily No Start Date 02/16/2016 Inactive Premarin 0.3 mg Tab RxNorm: 386483 1 Tablet(s) PO daily No Start Date 01/30/2012 Inactive Motrin IB 200 mg Tab RxNorm: 521229 1 Tablet(s) PO daily No Start Date 02/16/2016 Inactive Fish Oil 1,000 mg Cap RxNorm: 1 Capsule(s) PO daily No Start Date 02/16/2016 Inactive niacin 500 mg Tab RxNorm: 460045 1 Tablet(s) PO daily No Start Date 02/16/2016 Inactive Medication Administered Medication Codes Instruc tions Start Date Status Kenalog 40 mg/mL suspension for injection RxNorm: 6430454 1Milliliter 03/31/2015 N o longer Active Immunizations [...] Ord30 C/HDL 3.4 Ratio 03/18/2017 Free T4 Uqy942 FREE T4 0.94 ng/dL 03/18/2017 Cbc With [...] 88.0 fl 03/18/2017 Cbc With Differential Ord2 [place]% 7.7 % 03/18/2017 Cbc With Differential Ord2 [...] 1.76 K/ul 03/18/2017 Cbc With Differential Ord2 [place] ABS# 0.4 K/ul 03/18/2017 Cbc With Differential Ord2 Eos ABS# 0.1 K/ul 03/18/2017 Cbc With Differential Ord2 Baso ABS# 0.0 K/ul 03/18/2017 Tsh Ord6 hTSH II 1.47 uIU/mL 03/18/2017 Comp Metabolic Zid439 NA 140 mEq/L 03/18/2017 Comp Metabolic Nyc954 K 4.4 mEq/L 03/18/2017 Comp Metabolic Ikk015 CL 105 mEq/L 03/18/2017 Comp Metabolic Ytu906 CO2 29.0 mEq/L 03/18/2017 Comp Metabolic Sfc485 AN ION GAP 10 03/18/2017 Comp Metabolic Eov619 GL UCOSE 89 mg/dL 03/18/2017 Comp Metabolic Osn003 Cr eat 0.7 mg/dL 03/18/2017 Comp Metabolic Gyh947 eG FR 86 ml/min/1.73m2 03/18 Comp Metabolic Yyo017 BUN 13 mg/dL 03/18/2017 Comp Metabolic Ggk786 B/ C Ratio 18.1 Ratio 03/18/2017 Comp Metabolic Afj038 CA LCIUM 8.8 mg/dL 03/18/2017 Comp Metabolic Oht206 AL K PHOS 77 U/L 03/18/2017 Comp Metabolic Iqv122 T(SGOT) 25 U/L 03/18/2017 Comp Metabolic Ndn218 AL T(SGPT) 18 U/L 03/18/2017 Comp Metabolic Xol315 BI LI T 0.8 mg/dL 03/18/2017 Comp Metabolic Vaz020 AL BUMIN 4.0 g/dL 03/18/2017 Comp Metabolic Vws651 TP RO 6.1 g/dL 03/18/2017 Comp Metabolic Ypw895 GL OB 2.1 g/dL 03/18/2017 Comp Metabolic Qpt160 A/ G Ratio 1.9 Ratio 03/18/2017 Comp Metabolic Zkz350 Os mo 279 mOsmo 03/18/2017 Lipid Ord30 CHOL 182 mg/dL 02/17/2016 Lipid Ord30 HDL 56.0 mg/dl 02/17/2016 Lipid Ord30 TRIG 80 mg/dL 02/17/2016 Lipid Ord30 LDL 110 mg/dL 02/17/2016 Lipid Ord30 C/HDL 3.3 Ratio 02/17/2016 Free T4 Krd784 FREE T4 1.00 ng/dL 02/17/2016 Tsh Ord6 hTSH II 2.03 uIU/mL 02/17/2016 Comp Metabolic Fxq309 NA 140 mEq/L 02/17/2016 Comp Metabolic Sjf082 K 3.8 mEq/L 02/17/2016 Comp Metabolic Kid386 CL 104 mEq/L 02/17/2016 Comp Metabolic Kjt148 CO2 32.0 mEq/L 02/17/2016 Comp Metabolic Mus365 AN ION GAP 8 02/17/2016 Comp Metabolic Aqk106 GL UCOSE 96 mg/dL 02/17/2016 Comp Metabolic Gou058 Cr eat 0.8 mg/dL 02/17/2016 Comp Metabolic Byg049 eG FR 76 ml/min/1.73m2 02/16 Comp Metabolic Hhm315 BUN 14 mg/dL 02/17/2016 Comp Metabolic Skq637 B/ C Ratio 17.5 Ratio 02/17/2016 Comp Metabolic Oxe667 CA LCIUM 9.4 mg/dL 02/17/2016 Comp Metabolic Uqu897 AL K PHOS 66 U/L 02/17/2016 Comp Metabolic Gsp684 T(SGOT) 16 U/L 02/17/2016 Comp Metabolic Pec959 AL T(SGPT) 13 U/L 02/17/2016 Comp Metabolic Zul047 BI LI T 0.8 mg/dL 02/17/2016 Comp Metabolic Khs896 AL BUMIN 4.3 g/dL 02/17/2016 Comp Metabolic Qwv631 TP RO 6.3 g/dL 02/17/2016 Comp Metabolic Qug664 GL OB 2.0 g/dL 02/17/2016 Comp Metabolic Fgr952 A/ G Ratio 2.2 Ratio 02/17/2016 Comp Metabolic Qrs735 Os mo 280 mOsmo 02/17/2016 Cbc With Differential Ord2 WBC 5.44 K/ul 02/17/2016 Cbc With Differential Ord2 RBC 4.52 M/ul 02/17/2016 Cbc With Differential Ord2 HGB 13.0 g/dl 02/17/2016 Cbc With Differential Ord2 Neut% 49.2 % 02/17/2016 Cbc With Differential Ord2 HCT 39.1 % 02/17/2016 Cbc With Differential Ord2 Lymph% 38.4 % 02/17/2016 Cbc With Differential Ord2 MCV 86.5 fl 02/17/2016 Cbc With Differential Ord2 [place]% 9.4 % 02/17/2016 Cbc With Differential Ord2 MCH 28.8 pg 02/17/2016 Cbc With Differential Ord2 Eos% 2.4 % 02/17/2016 Cbc With Differential Ord2 MCHC 33.2 pg 02/17/2016 Cbc With Differential Ord2 PLT 262 K/ul 02/17/2016 Cbc With Differential Ord2 Baso% 0.6 % 02/17/2016 Cbc With Differential Ord2 RDW 14.3 % 02/17/2016 Cbc With Differential Ord2 Neut ABS# 2.68 K/ul 02/17/2016 Cbc With Differential Ord2 Lymph ABS# 2.09 K/ul 02/17/2016 Cbc With Differential Ord2 [place] ABS# 0.5 K/ul 02/17/2016 Cbc With Differential Ord2 Eos ABS# 0.1 K/ul 02/17/2016 Cbc With Differential Ord2 Baso ABS# 0.0 K/ul 02/17/2016 Cbc With Differential Ord2 New Analyzer Notice Please note new ref ranges s tarting 10-29-2015 due to implemntation of new five part differential hematolgy analyzer. 02/17/2016 GC/CHL PRB 5304550 CHLM PROBE NEG 04/01/2015 GC/CHL PRB 1100677 GC RI OBE NEG 04/01/2015 GC/CHL PRB 6555453 CHLM PROBE NEG 02/05/2014 GC/CHL PRB 7441631 GC RI OBE NEG 02/05/2014 Review of Systems System [...] 01/10/2013 None Full Exam - General 1995 Genitourinary cervix Inspection: normal os 01/10/2013 None [...] Codes Date INITIAL PREVENTIVE E XAM CPT-4: F2261Hwzwusj 02/19/2016 ADMIN PNEUMOCOCCAL V ACCINE SNOMED CT: 32719242 CPT-4: F0823Eheknus 02/19/2016 PNEUMOCOCCAL VACC 13 MARLEN IM Formatting Model/CDA Sections, Assigned to SNOMED CT: 43223825 CPT-4: 18655Ldqvgph 02/19/2016 TRIAMCINOLONE ACET I [place] NOS CPT-4: P8546Qwstyls 03/31/2015 THER/PROPH/DIAG INJ SC/IM CPT-4: 08704Hbjpxtc 03/31/2015 SPECIMEN HANDLING OF FICE-LAB CPT-4: 78826Dielone 03/31/2015 Vital Signs Date Vital 03/17/2017 Blood Pressure 1: 136/78 Code: 8480-6 BMI: 22.7 Code: 70432-1 Heart Rate 1: 57 bpm Height: 5'9" SpO2: 98% Weight: 154 lbs 02/19/2016 Blood Pressure 1: 124/88 Code: 8480-6 BMI: 22.7 Code: 76369-7 Heart Rate 1: 72 bpm Height: 5'9" SpO2: 96% Waist Measure (cm): 89 cm Weight: 154 lbs 02/17/2016 Blood Pressure 1: 118/78 Code: 8480-6 Heart Rate 1: 61 bpm Height: 5'9" SpO2: 98% 03/31/2015 Blood Pressure 1: 138/68 Code: 8480-6 BMI: 23.0 Code: 29342-8 Heart Rate 1: 68 bpm Height: 5'9" Weight: 156 lbs 02/04/2014 Blood Pressure 1: 128/80 Code: 8480-6 BMI: 22.4 Code: 46489-9 Heart Rate 1: 60 bpm Height: 5'9" Weight: 152 lbs 11/29/2013 Blood Pressure 1: 102/64 Code: 8480-6 Heart Rate 1: 70 bpm SpO2: 97% Weight: 151 lbs 08/27/2013 Blood Pressure 1: 138/80 Code: 8480-6 BMI: 22.3 Code: 62476-8 Heart Rate 1: 68 bpm Height: 5'9" Weight: 151 lbs 06/28/2013 Blood Pressure 1: 112/74 Code: 8480-6 BMI: 22.3 Code: 18252-7 Heart Rate 1: 72 bpm Height: 5'9" Weight: 151 lbs 01/10/2013 Blood Pressure 1: 102/64 Code: 8480-6 BMI: 22.4 Code: 31705-9 Heart Rate 1: 64 bpm Height: 5'9" Weight: 152 lbs 11/25/2011 Blood Pressure 1: 102/76 Code: 8480-6 BMI: 23.0 Code: 82794-8 Heart Rate 1: 68 bpm Height: 5'9" [...] well woman exam (65+ years) Lifestyle satisfactory work/[facility] experience 03/17/2017 None well woman exam (65+ [...] 200) 02/19/2016 None Annual Medicare Wellness Exam Bernardo roman (last 6 months) almost never 02/19/2016 None [...] has swollen since. arthropod bite Quality s wolsj 06/28/2013 reddened. 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 P ATIENT, LEVEL IV Diagnosis: Encounter for gynecological examination (general) (routine) without abnormal findings[ICD10: Z01.419] Diagnosis: Encounter for screening mammogram for malignant neoplasm of breast[ICD10: Z12.31] Heidi Christy MD, [facility] CPT-4: 30297 03/17/2017 ([id number]) 55823 EST. P ATIENT, LEVEL IV Diagnosis: Encounter for general adult medical examination without abnormal findings[ICD10: Z00.00] Diagnosis: Hypothyroidism, unspecified[ICD10: E03.9] Diagnosis: Hyperlipidemia, unspecified[ICD10: E78.5] Suzy Christy MD, [facility] CPT-4: 81754 02/17/2016 ([id number]) PREV VISIT E AGE 40-64 Diagnosis: Well woman exam with routine gynecological exam[ICD9: V72.31] Suzy Christy MD, [facility] CPT-4: 90259 03/31/2015 ([id number]) PREV VISIT E AGE 40-64 Diagnosis: ROUTINE GYNE EXAM[ICD9: V72.31] Heidi Christy MD, [facility] CPT-4: 96164 02/04/2014 ([id number]) 90270 EST. P ATIENT, LEVEL IV Diagnosis: Vaginal bleeding[ICD9: 623.8] Suzy Christy MD, [facility] CPT- 4: 06868 11/29/2013 ([id number]) 16697 EST. P ATIENT, LEVEL IV Diagnosis: Abdominal pain[ICD9: 789.00] Diagnosis: Dizziness[ICD9: 780.4] Diagnosis: Weakness[ICD9: 780.79] Heidi Christy MD, [facility] CPT-4: 23111 08/27/2013 ([id number]) 34520 EST. P ATIENT, LEVEL III Diagnosis: Tick bite[ICD9: 919.4] Suzy Christy MD, [facility] CPT-4: 04805 06/28/2013 ([id number]) PREV VISIT E AGE 40-64 Diagnosis: Well woman exam with routine gynecological exam[ICD9: V72.31] [facility] CPT-4: 56453 01/10/2013 03704 EST. PATIENT, LEVEL IV Diagnosis: Abnormal Pap smear of cervix[ICD9: 795.00] Diagnosis: Abnormal weight gain[ICD9: 783.1] [facility] CPT-4: 80218 11/25/2011 Plan of Care Planned Activity Notes [...] Medication Summary Completed 03/17/2017 Care Plan: SCREENINGMAMMOGRAPHYDIGITAL LOINC : 54540-0 Pending 03/17/2017 Care Plan: PAP Pending 03/17/2017 [...] the next year, otherwise, RTC yearly or prn.Plfghaxmyjdz-ufkms-noremzruo today in the office - back exercises [...] the next year, otherwise, RTC yearly or prn.Jzgduiexolxq-kpxnr-lhyirkjua today in the office - back exercises [...] the next year, otherwise, RTC yearly or prn.Wdywhxqngzks-iojir-rdpbnztpf today in the office - back exercises discussed with the patient, pt to continue with anti-inflammatories. Pt is to call if the symptoms do not improve or if they worsen. 03/31/2015 Appointment: Well Woman 03/31/2015 Patient Education: Patient Medication Summary Completed 03/31/2015 Care Plan: COMPLETE CBC AUTOMATED LOINC : 08143-5 Ordered 03/31/2015 Care Plan: GC/CHL PRB Pending [...] showing improvement. 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 Discussed with patient-plan for pelvic ultrasound-refer to Dr Barth-they will call with appointment. Patient verbalized understanding of plan. 11/29/2013 Appointment: Suzy Mclaughlin WPtel: [phone] [place] Pap Only 11/29/2013 Patient Education: Patient [...] symptoms escalate. 08/27/2013 Appointment: Heidi Christy WPtel: [facility] Other 08/27/2013 Patient Education: Patient Medication [...] plan. 06/28/2013 Appointment: Suzy Mclaughlin WPtel: [phone] [phone] [place] [address] Other 06/28/2013 Patient Education: Patient Medication Summary [...] or prn. 01/10/2013 Appointment: Heidi Christy WPtel: [facility] Well Woman 01/10/2013 Patient Education: Patient [...] her exercise. 2011 Appointment: Heidi Christy WPtel: [phone] [facility] [place] Pap Only 11/25/2011 Patient Education: Patient [...] next year, otherwise, RTC yearly or prn. Iwtqvqqtdheg-yezky-gehtzqamf today in the office - back exercises [...] next year, otherwise, RTC yearly or prn. Iqtcuoxnuffi-davwz-owbiyhxsj today in the office - back exercises [...] next year, otherwise, RTC yearly or prn. Iudelfyskncq-yadga-rfkbqvelc today in the office - back exercises discussed with the patient, pt to continue with anti-inflammatories. Pt is to call if the symptoms do not improve or if they worsen.
--- OUTSIDE RECORDS SUMMARY | 2020-04-11 13:05 | XMS REPORT | CCD ---
Author Author Cherelle Christy Organization Heidi Christy MD, [facility] Address [address] [place] [address] Phone Care Team Providers Care Retail Office Associate Name Role Phone PP Unavailable CCM Unavailable Summary Purpose Interface Exchange Insurance Providers Payer name Policy type / Coverage type Covered republican ID Effective Begin Date Effective End Date WPS Medicare Part B Medicare Part B [id number] 2015 Unknown [facility] Part B [id number] Un known Family history Brother Diagnosis Age [...] 1 son 11/25/[address]: 034298427 Nonsmoker 11/25/2011 Has the patient ever used [...] Instructions pravastatin 10 mg ta blet RxNorm: 211084 TAKE 1 TABLET BY MOUT H AT BEDTIME 09/20/2016 03/18/2017 Ac tive Generic For:PRAVACHOL 10MG 09/20/2016 9 :01:58 AM Synthroid 50 mcg tablet RxNorm: 346033 TAKE 1 TABLET BY MOUTH DAILY 07/22/2016 07/16/2017 Active Generic For:SYNTHROID 50MCG TAB 016 9:11:52 AM pravastatin 10 mg ta blet RxNorm: 447463 TAKE 1 TABLET BY MOUT H AT BEDTIME 03/23/2016 09/18/2016 In active Generic For:PRAVACHOL 10MG pravastatin 10 mg ta blet RxNorm: 464313 TAKE 1 TABLET BY MOUT H AT BEDTIME 09/26/2015 03/22/2016 In active Generic For:PRAVACHOL 10MG 09/26/2015 1 :46:52 PM Synthroid 50 mcg tablet RxNorm: 753464 1 Tablet(s) PO daily 07/24/2015 07/17/2016 Inactive Kenalog 40 mg/mL bernard pension for injection RxNorm: 3484290 1 Milliliter(s) Inj 03/31/2015 03/31/2015 In active pravastatin 10 mg ta blet RxNorm: 845464 TAKE 1 TABLET BY MOUT H AT BEDTIME 03/31/2015 09/25/2015 In active Generic For:PRAVACHOL 10MG 03/29/2015 8 :51:39 AM pravastatin 10 mg ta blet RxNorm: 841983 1 Tablet(s) PO QHS (n eeds appt for further refills) 02/27/2015 03/28/2015 Inactive [SAVINGS FOR NON-COVERED DR UGS -- BIN:[id number], PCN: [id number], Group: XXXXX, ID# [id number], Questions: . THIS IS NOT INSURANCE.] pravastatin 10 mg ta blet RxNorm: 841236 1 Tablet(s) PO QHS (n eeds appt for further refills) 01/28/2015 02/26/2015 Inactive [SAVINGS FOR NON-COVERED DR UGS -- BIN:[id number], PCN: [id number], Group: XXXXX, ID# [id number], Questions: . THIS IS NOT INSURANCE.] pravastatin 10 mg ta blet RxNorm: 495807 1 Tablet(s) PO QHS 07/18/2014 01/13/2015 Inactive Synthroid 50 mcg tablet RxNorm: 834528 1 Tablet(s) PO daily 05/31/2014 05/25/2015 Inactive acyclovir 400 mg tablet RxNorm: 000122 1 Tablet(s) PO QID 05/31/2014 06/19/2014 Inactive Prozac 10 mg capsule RxNorm: 649553 1 Capsule(s) PO QPM 02/04/2014 02/16/2016 Inactive may dispense generic CombiPatch 0.05 mg-0 .14 mg/24 hr transdermal RxNorm: 3667889 1 Patch TD BIW 12/25/2013 01/23/2014 In active pravastatin 10 mg ta blet RxNorm: 831931 1 Tablet(s) PO QHS 12/20/2013 06/17/2014 Inactive medroxyprogesterone 5 mg tablet RxNorm: 4996843 Tablet(s) PO TAKE 1 TABLET ONCE DAILY 10 DAYS PER MONTH 09/24/2013 12/24/2013 Inactive Premarin 0.3 mg tablet RxNorm: 524791 Tablet(s) PO TAKE 1 TABLET BY MOUTH ONCE DAILY. 09/24/2013 12/24/2013 Inactive doxycycline hyclate 100 mg tablet RxNorm: 789812 1 Tablet(s) PO BID 06/28/2013 07/04/2013 Inactive pravastatin 10 mg ta blet RxNorm: 130282 1 Tablet(s) PO QHS 05/31/2013 11/26/2013 Inactive Synthroid 50 mcg tablet RxNorm: 600641 1 Tablet(s) PO daily 03/22/2013 03/21/2013 Inactive Synthroid 50 mcg tablet RxNorm: 969910 1 Tablet(s) PO daily 03/22/2013 03/16/2014 Inactive pravastatin 10 mg ta blet RxNorm: 594218 1 Tablet(s) PO QHS 01/15/2013 05/14/2013 Inactive Synthroid 25 mcg tablet RxNorm: 834177 1 Tablet(s) PO daily 01/15/2013 03/22/2013 Inactive brand name only pravastatin 10 mg ta blet RxNorm: 381523 1 Tablet(s) PO QHS 01/15/2013 01/14/2013 Inactive Climara Pro 0.045 mg -0.015 mg/24 hr Transderm Patch RxNorm: 627258 1 Application TD QW 01/10/2013 08/26/2013 Inactive Synthroid 25 mcg tablet RxNorm: 280916 1 Tablet(s) PO daily 01/10/2013 01/14/2013 Inactive acyclovir 400 mg tablet RxNorm: 987741 1 Tablet(s) PO QID 10/31/2012 11/09/2012 Inactive levothyroxine 25 mcg tablet RxNorm: 365810 1 Tablet(s) PO daily 09/05/2012 01/10/2013 Inactive medroxyprogesterone 5 mg tablet RxNorm: 3991379 Tablet(s) PO 02/09/2012 01/10/2013 Inactive TAKE 1 TABLET ONCE DAILY 10 DAYS PER Tue Premarin 0.3 mg tablet RxNorm: 674995 1 Tablet(s) PO daily 01/31/2012 01/10/2013 Inactive levothyroxine 25 mcg tablet RxNorm: 834548 1 Tablet(s) PO daily 01/20/2012 07/17/2012 Inactive levothyroxine 25 mcg Tab RxNorm: 283631 1 Tablet(s) PO daily 07/01/2011 07/30/2011 Inactive gabapentin 300 mg ca psule RxNorm: 897163 1 Capsule(s) PO TID No Start Date Active aspirin 325 mg Tab RxNorm: 576952 1 Tablet(s) PO daily No Start Date Active Carafate 1 gram tablet RxNorm: 962111 1 Tablet(s) PO QID No Start Date 02/16/2016 Inactive medroxyprogesterone 5 mg Tab RxNorm: 7146575 1 Tablet(s) PO daily No Start Date 02/08/2012 Inactive Dexilant 60 mg capsu le, delayed release RxNorm: 170516 1 Capsule(s) PO daily No Start Date 02/16/2016 Inactive Premarin 0.3 mg Tab RxNorm: 492006 1 Tablet(s) PO daily No Start Date 01/30/2012 Inactive Motrin IB 200 mg Tab RxNorm: 084470 1 Tablet(s) PO daily No Start Date 02/16/2016 Inactive Fish Oil 1,000 mg Cap RxNorm: 1 Capsule(s) PO daily No Start Date 02/16/2016 Inactive niacin 500 mg Tab RxNorm: 426971 1 Tablet(s) PO daily No Start Date 02/16/2016 Inactive Medication Administered Medication Codes Instruc tions Start Date Status Kenalog 40 mg/mL suspension for injection RxNorm: 6141487 1Milliliter 03/31/2015 N o longer Active Immunizations [...] Item Code Result Date Lipid Ord30 CHOL 182 mg/dL 02/17/2016 Lipid Ord30 HDL 56.0 mg/dl 02/17/2016 Lipid Ord30 TRIG 80 mg/dL 02/17/2016 Lipid Ord30 LDL 110 mg/dL 02/17/2016 Lipid Ord30 C/HDL 3.3 Ratio 02/17/2016 Free T4 Paf498 FREE T4 1.00 ng/dL 02/17/2016 Tsh Ord6 hTSH II 2.03 uIU/mL 02/17/2016 Comp Metabolic Xbo615 NA 140 mEq/L 02/17/2016 Comp Metabolic Uqb437 K 3.8 mEq/L 02/17/2016 Comp Metabolic Ohb587 CL 104 mEq/L 02/17/2016 Comp Metabolic Upd742 CO2 32.0 mEq/L 02/17/2016 Comp Metabolic Hhq293 AN ION GAP 8 02/17/2016 Comp Metabolic Xdl653 GL UCOSE 96 mg/dL 02/17/2016 Comp Metabolic Xpy878 Cr eat 0.8 mg/dL 02/17/2016 Comp Metabolic Yku739 eG FR 76 ml/min/1.73m2 02/16 Comp Metabolic Ruy173 BUN 14 mg/dL 02/17/2016 Comp Metabolic Fdr090 B/ C Ratio 17.5 Ratio 02/17/2016 Comp Metabolic Laz518 CA LCIUM 9.4 mg/dL 02/17/2016 Comp Metabolic Dge694 AL K PHOS 66 U/L 02/17/2016 Comp Metabolic Uwx441 T(SGOT) 16 U/L 02/17/2016 Comp Metabolic Ire936 AL T(SGPT) 13 U/L 02/17/2016 Comp Metabolic Oor532 BI LI T 0.8 mg/dL 02/17/2016 Comp Metabolic Erx760 AL BUMIN 4.3 g/dL 02/17/2016 Comp Metabolic Kdv199 TP RO 6.3 g/dL 02/17/2016 Comp Metabolic Paf085 GL OB 2.0 g/dL 02/17/2016 Comp Metabolic Fum217 A/ G Ratio 2.2 Ratio 02/17/2016 Comp Metabolic Ayq564 Os mo 280 mOsmo 02/17/2016 Cbc With [...] 38.4 % 02/17/2016 Cbc With Differential Ord2 Navarro% 9.4 % 02/17/2016 Cbc With Differential Ord2 MCH 28.8 pg 02/17/2016 Cbc With Differential Ord2 Eos% 2.4 % 02/17/2016 Cbc With Differential Ord2 MCHC 33.2 pg 02/17/2016 Cbc With Differential Ord2 PLT 262 K/ul 02/17/2016 Cbc With Differential Ord2 Baso% 0.6 % 02/17/2016 Cbc With Differential Ord2 Neut ABS# 2.68 K/ul 02/17/2016 Cbc With Differential Ord2 RDW 14.3 % 02/17/2016 Cbc With Differential Ord2 Lymph ABS# 2.09 K/ul 02/17/2016 Cbc With Differential Ord2 Navarro ABS# 0.5 K/ul 02/17/2016 Cbc With Differential Ord2 Eos ABS# 0.1 K/ul 02/17/2016 Cbc With Differential Ord2 Baso ABS# 0.0 K/ul 02/17/2016 Cbc With Differential Ord2 New Analyzer Notice Please note new ref ranges s tarting 10-29-2015 due to implemntation of new five part differential hematolgy analyzer. 02/17/2016 GC/CHL PRB [id number] CHLM PROBE NEG 04/01/2015 GC/CHL PRB 0569110 GC WV OBE NEG 04/01/2015 GC/CHL PRB [id number] CHLM PROBE NEG 02/05/2014 GC/CHL PRB 5795428 GC WV OBE NEG 02/05/2014 Review of Systems System [...] discharge 11/29/2013 None Full Exam - General 1995 Abdomen abdominal exam Overall: no tenderness 11/29/2013 None Full Exam - General 1995 Abdomen abdominal exam Overall: normal bowel sounds 11/29/2013 None Full Exam - General 1995 Genitourinary uterus Overall: normal size 11/29/2013 None Full Exam - General 1995 Genitourinary cervix Inspection: normal os 11/29/2013 None [...] os 01/10/2013 None Full Exam - General 1995 Genitourinary labia and vagina Overall: normal hair distribution 01/10/2013 None Full Exam - General 1995 Genitourinary labia and vagina Overall: no lesions 01/10/2013 None Full Exam - General 1995 Musculoskeletal head and neck Overall: head atraumatic [...] 1994 Ears/Nose/Throat oral cavity/pharynx/larynx Overall: no masses 11/25/2011 [...] sounds 11/25/2011 None Full Exam - General 1995 Cardiovascular auscultation of heart Overall: no murmurs 11/25/2011 None Full Exam - General 1994 Psychiatric orientation/consciousness Overall: oriented to person, place and time 11/25/2011 None Full Exam - General 1995 Psychiatric mood and affect Mood: happy 11/25/2011 None Full Exam - General 1995 Psychiatric mood and affect Overall: normal mood [...] Codes Date INITIAL PREVENTIVE E XAM CPT-4: C4387Eboagiz 02/19/2016 ADMIN PNEUMOCOCCAL V ACCINE SNOMED CT: 31595280 CPT-4: F6554Llbbtcz 02/19/2016 PNEUMOCOCCAL VACC 13 MARLEN IM Formatting Model/CDA Sections, Assigned to SNOMED CT: 67416871 CPT-4: 16634Vvdhluf 02/19/2016 TRIAMCINOLONE ACET I [place] NOS CPT-4: Q3506Phrpvbe 03/31/2015 THER/PROPH/DIAG INJ SC/IM CPT-4: 57791Hvmishm 03/31/2015 SPECIMEN HANDLING OF FICE-LAB CPT-4: 20755Wovtllg 03/31/2015 Vital Signs Date Vital 03/17/2017 Blood Pressure 1: 136/78 Code: 8480-6 BMI: 22.7 Code: 38683-5 Heart Rate 1: 57 bpm Height: 5'9" SpO2: 98% Weight: 154 lbs 02/19/2016 Blood Pressure 1: 124/88 Code: 8480-6 BMI: 22.7 Code: 95531-2 Heart Rate 1: 72 bpm Height: 5'9" SpO2: 96% Waist Measure (cm): 89 cm Weight: 154 lbs 02/17/2016 Blood Pressure 1: 118/78 Code: 8480-6 Heart Rate 1: 61 bpm Height: 5'9" SpO2: 98% 03/31/2015 Blood Pressure 1: 138/68 Code: 8480-6 BMI: 23.0 Code: 99025-6 Heart Rate 1: 68 bpm Height: 5'9" Weight: 156 lbs 02/04/2014 Blood Pressure 1: 128/80 Code: 8480-6 BMI: 22.4 Code: 36813-1 Heart Rate 1: 60 bpm Height: 5'9" Weight: 152 lbs 11/29/2013 Blood Pressure 1: 102/64 Code: 8480-6 Heart Rate 1: 70 bpm SpO2: 97% Weight: 151 lbs 08/27/2013 Blood Pressure 1: 138/80 Code: 8480-6 BMI: 22.3 Code: 62732-6 Heart Rate 1: 68 bpm Height: 5'9" Weight: 151 lbs 06/28/2013 Blood Pressure 1: 112/74 Code: 8480-6 BMI: 22.3 Code: 90486-6 Heart Rate 1: 72 bpm Height: 5'9" Weight: 151 lbs 01/10/2013 Blood Pressure 1: 102/64 Code: 8480-6 BMI: 22.4 Code: 86771-4 Heart Rate 1: 64 bpm Height: 5'9" Weight: 152 lbs 11/25/2011 Blood Pressure 1: 102/76 Code: 8480-6 BMI: 23.0 Code: 35211-3 Heart Rate 1: 68 bpm Height: 5'9" [...] well woman exam (65+ years) 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 arthropod bite Quality massiel day 06/28/2013 reddened. 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 P ATIENT, LEVEL IV Diagnosis: Encounter for gynecological examination (general) (routine) without abnormal findings[ICD10: Z01.419] Diagnosis: Encounter for screening mammogram for malignant neoplasm of breast[ICD10: Z12.31] [facility] CPT-4: 39299 03/17/2017 [id number] 51903 EST. P ATIENT, LEVEL IV Diagnosis: Encounter for general adult medical examination without abnormal findings[ICD10: Z00.00] Diagnosis: Hypothyroidism, unspecified[ICD10: E03.9] Diagnosis: Hyperlipidemia, unspecified[ICD10: E78.5] [facility] CPT-4: 35521 02/17/2016 ([id number]) PREV VISIT E ST AGE 40-64 Diagnosis: Well woman exam with routine gynecological exam[ICD9: V72.31] [facility] CPT-4: 13528 03/31/2015 ([id number]) PREV VISIT E ST AGE 40-64 Diagnosis: ROUTINE GYNE EXAM[ICD9: V72.31] [facility] CPT-4: 60629 02/04/2014 ([id number]) 03701 EST. P ATIENT, LEVEL IV Diagnosis: Vaginal bleeding[ICD9: 623.8] [facility] CPT- 4: 61713 11/29/2013 ([id number]) 32655 EST. P ATIENT, LEVEL IV Diagnosis: Abdominal pain[ICD9: 789.00] Diagnosis: Dizziness[ICD9: 780.4] Diagnosis: Weakness[ICD9: 780.79] Heidi Christy MD, [facility] CPT-4: 50194 08/27/2013 ([id number]) 93079 EST. P ATIENT, LEVEL III Diagnosis: Tick bite[ICD9: 919.4] Suzy Christy MD, [facility] CPT-4: 71722 06/28/2013 ([id number]) PREV VISIT E AGE 40-64 Diagnosis: Well woman exam with routine gynecological exam[ICD9: V72.31] Heidi Christy MD, [facility] CPT-4: 98242 01/10/2013 34600 EST. PATIENT, LEVEL IV Diagnosis: Abnormal Pap smear of cervix[ICD9: 795.00] Diagnosis: Abnormal weight gain[ICD9: 783.1] Heidi Christy MD, [facility] CPT-4: 33589 11/25/2011 Plan of Care Planned Activity Notes [...] Completed 03/17/2017 Care Plan: SCREENINGMAMMOGRAPHYDIGITAL LOINC : 62000-6 Pending 03/17/2017 Care Plan: Comp Metabolic Pending 03/17/2017 Care Plan: Cbc With Differential Pending 03/17/2017 Care Plan: Tsh Pending 03/17/2017 Care Plan: Lipid Pending 03/17/2017 Care Plan: Free T4 Pending 03/17/2017 Care Plan: PAP Pending 03/17/2017 Patient Education: Patient Medication Summary Completed 03/10/2016 Visit Plan: Welcome to Medicare Exam - justin carias we discussed the patients past history, immunizations, [...] the next year, otherwise, RTC yearly or prn.Oercuwrhtklx-zxuvg-rgswkcwer today in the office - back exercises [...] the next year, otherwise, RTC yearly or prn.Njuzizjxlurp-hqvxn-tgjmpqwdh today in the office - back exercises [...] the next year, otherwise, RTC yearly or prn.Iftassvzzzje-uvccy-iindzkdgr today in the office - back exercises discussed with the patient, pt to continue with anti-inflammatories. Pt is to call if the symptoms do not improve or if they worsen. 03/31/2015 Appointment: [facility] 03/31/2015 Patient Education: Patient Medication Summary Completed 03/31/2015 Care Plan: [facility] 04661-3 Ordered 03/31/2015 Care Plan: GC/CHL PRB Pending [...] showing improvement. 02/04/2014 [facility] [phone] 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 Discussed with patient-plan for pelvic ultrasound-refer to Dr Barth-they will call with appointment. Patient verbalized understanding of plan. 11/29/2013 Appointment: Suzy Mclaughlin WPtel: [phone] Pap Only 11/29/2013 Patient Education: Patient Medication [...] symptoms escalate. 08/27/2013 Appointment: Heidi Christy WPtel: [facility] Other 08/27/2013 Patient Education: Patient Medication Summary [...] of plan. 06/28/2013 Appointment: Suzy Mclaughlin WPtel: [phone] Other 06/28/2013 Patient Education: Patient Medication [...] prn. 01/10/2013 [facility] [phone] [facility] [facility] 01/10/2013 Patient Education: Patient Medication [...] exercise. 2011 App[facility]ment[facility] [phone] [facility] [facility] Only 11/25/2011 Patient Education: Patient Medication [...] next year, otherwise, RTC yearly or prn. Uzaxkwykktyw-vxspi-oaeiubakf today in the office - back exercises [...] next year, otherwise, RTC yearly or prn. Dgbfzhwfapdo-zjdvs-qvyvfsmhn today in the office - back exercises [...] next year, otherwise, RTC yearly or prn. Ccxoqpppudjv-pebiq-gqfoglkhe today in the office - back exercises discussed with the patient, pt to continue with anti-inflammatories. Pt is to call if the symptoms do not improve or if they worsen.
--- OUTSIDE RECORDS SUMMARY | 2020-04-11 13:05 | XMS REPORT | CCD ---
Author Author Cherelle Christy Organization Heidi Christy MD, [facility] Address [address] [place] [address] Phone Care Team Providers Care Field Agronomist Name Role Phone PP Unavailable CCM Unavailable Summary Purpose Interface Exchange Insurance Providers Payer name Policy type / Coverage type Covered democrat ID Effective Begin Date Effective End Date WPS Medicare Part B Medicare Part B [id number] 2015 Unknown [facility] Part B [id number] Un known Family history Brother Diagnosis Age [...] 1 son 11/25/[address]: 208508946 Nonsmoker 11/25/2011 Has the patient ever used [...] Instructions pravastatin 10 mg ta blet RxNorm: 571550 TAKE 1 TABLET BY MOUT H AT BEDTIME 10/16/2018 02/12/2019 Ac tive Generic For:PRAVACHOL 10MG 10/14/2018 8 :55:15 AM Synthroid 50 mcg tablet RxNorm: 702167 TAKE 1 TABLET BY MOUTH DAILY 10/06/2018 09/30/2019 Active Generic For:SYNTHROID 50MCG TAB 018 9:31:36 AM pravastatin 10 mg ta blet RxNorm: 652559 TAKE 1 TABLET BY MOUT H AT BEDTIME 02/28/2018 06/27/2018 In active Generic For:PRAVACHOL 10MG 02/28/2018 9 :27:39 AM Synthroid 50 mcg tablet RxNorm: 511254 TAKE 1 TABLET BY MOUTH DAILY 09/26/2017 09/20/2018 Inactive Generic For:SYNTHROID 50MCG TAB 017 9:16:20 AM pravastatin 10 mg ta blet RxNorm: 471916 TAKE 1 TABLET BY MOUT H AT BEDTIME 07/15/2017 11/11/2017 In active Generic For:PRAVACHOL 10MG 07/15/2017 8 :54:19 AM Estrace 0.01% (0.1 m g/gram) vaginal cream RxNorm: 118741 1 VAG BIW 05/23/2017 12/18/2017 Inactive pt wants this filled at [facility] Estrace 0.01% (0.1 m g/gram) vaginal cream RxNorm: 969940 1 VAG BIW 05/23/2017 05/22/2017 Inactive gabapentin 300 mg ca psule RxNorm: 792219 1 cap(s) po tid,Instr :for neuropathic pain 03/31/2017 No Stop Date Active pravastatin 10 mg ta blet RxNorm: 631569 TAKE 1 TABLET BY MOUT H AT BEDTIME 09/20/2016 03/18/2017 In active Generic For:PRAVACHOL 10MG 09/20/2016 9 :01:58 AM Synthroid 50 mcg tablet RxNorm: 185952 TAKE 1 TABLET BY MOUTH DAILY 07/22/2016 07/16/2017 Inactive Generic For:SYNTHROID 50MCG TAB 016 9:11:52 AM pravastatin 10 mg ta blet RxNorm: 834095 TAKE 1 TABLET BY MOUT H AT BEDTIME 03/23/2016 09/18/2016 In active Generic For:PRAVACHOL 10MG pravastatin 10 mg ta blet RxNorm: 665008 TAKE 1 TABLET BY MOUT H AT BEDTIME 09/26/2015 03/22/2016 In active Generic For:PRAVACHOL 10MG 09/26/2015 1 :46:52 PM Synthroid 50 mcg tablet RxNorm: 315475 1 Tablet(s) PO daily 07/24/2015 07/17/2016 Inactive Kenalog 40 mg/mL bernard pension for injection RxNorm: 5299719 1 Milliliter(s) Inj 03/31/2015 03/31/2015 In active pravastatin 10 mg ta blet RxNorm: 240132 TAKE 1 TABLET BY MOUT H AT BEDTIME 03/31/2015 09/25/2015 In active Generic For:PRAVACHOL 10MG 03/29/2015 8 :51:39 AM pravastatin 10 mg ta blet RxNorm: 427520 1 Tablet(s) PO QHS (n eeds appt for further refills) 02/27/2015 03/28/2015 Inactive [SAVINGS FOR NON-COVERED DR UGS -- BIN:836570, PCN: [id number], Group: XXXXX, ID# XXXXXXX, Questions: . THIS IS NOT INSURANCE.] pravastatin 10 mg ta blet RxNorm: 816701 1 Tablet(s) PO QHS (n eeds appt for further refills) 01/28/2015 02/26/2015 Inactive [SAVINGS FOR NON-COVERED DR UGS -- BIN:111271, PCN: ASPROD1, Group: XXXXX, ID# XXXXXXX, Questions: . THIS IS NOT INSURANCE.] pravastatin 10 mg ta blet RxNorm: 041835 1 Tablet(s) PO QHS 07/18/2014 01/13/2015 Inactive Synthroid 50 mcg tablet RxNorm: 467494 1 Tablet(s) PO daily 05/31/2014 05/25/2015 Inactive acyclovir 400 mg tablet RxNorm: 008689 1 Tablet(s) PO QID 05/31/2014 06/19/2014 Inactive Prozac 10 mg capsule RxNorm: 857154 1 Capsule(s) PO QPM 02/04/2014 02/16/2016 Inactive may dispense generic CombiPatch 0.05 mg-0 .14 mg/24 hr transdermal RxNorm: 7069268 1 Patch TD BIW 12/25/2013 01/23/2014 In active pravastatin 10 mg ta blet RxNorm: 475761 1 Tablet(s) PO QHS 12/20/2013 06/17/2014 Inactive medroxyprogesterone 5 mg tablet RxNorm: 0256213 Tablet(s) PO TAKE 1 TABLET ONCE DAILY 10 DAYS PER MONTH 09/24/2013 12/24/2013 Inactive Premarin 0.3 mg tablet RxNorm: 131893 Tablet(s) PO TAKE 1 TABLET BY MOUTH ONCE DAILY. 09/24/2013 12/24/2013 Inactive doxycycline hyclate 100 mg tablet RxNorm: 914047 1 Tablet(s) PO BID 06/28/2013 07/04/2013 Inactive pravastatin 10 mg ta blet RxNorm: 556296 1 Tablet(s) PO QHS 05/31/2013 11/26/2013 Inactive Synthroid 50 mcg tablet RxNorm: 115918 1 Tablet(s) PO daily 03/22/2013 03/21/2013 Inactive Synthroid 50 mcg tablet RxNorm: 896241 1 Tablet(s) PO daily 03/22/2013 03/16/2014 Inactive pravastatin 10 mg ta blet RxNorm: 668766 1 Tablet(s) PO QHS 01/15/2013 05/14/2013 Inactive Synthroid 25 mcg tablet RxNorm: 041796 1 Tablet(s) PO daily 01/15/2013 03/22/2013 Inactive brand name only pravastatin 10 mg ta blet RxNorm: 516594 1 Tablet(s) PO QHS 01/15/2013 01/14/2013 Inactive Climara Pro 0.045 mg -0.015 mg/24 hr Transderm Patch RxNorm: 400837 1 Application TD QW 01/10/2013 08/26/2013 Inactive Synthroid 25 mcg tablet RxNorm: 956626 1 Tablet(s) PO daily 01/10/2013 01/14/2013 Inactive acyclovir 400 mg tablet RxNorm: 466480 1 Tablet(s) PO QID 10/31/2012 11/09/2012 Inactive levothyroxine 25 mcg tablet RxNorm: 246532 1 Tablet(s) PO daily 09/05/2012 01/10/2013 Inactive medroxyprogesterone 5 mg tablet RxNorm: 9204832 Tablet(s) PO 02/09/2012 01/10/2013 Inactive TAKE 1 TABLET ONCE DAILY 10 DAYS PER Tue Premarin 0.3 mg tablet RxNorm: 765878 1 Tablet(s) PO daily 01/31/2012 01/10/2013 Inactive levothyroxine 25 mcg tablet RxNorm: 438072 1 Tablet(s) PO daily 01/20/2012 07/17/2012 Inactive levothyroxine 25 mcg Tab RxNorm: 377476 1 Tablet(s) PO daily 07/01/2011 07/30/2011 Inactive aspirin 325 mg Tab RxNorm: 657359 1 Tablet(s) PO daily No Start Date Active Eliquis 5 mg tablet RxNorm: 6547806 1 Tablet(s) PO BID No Start Date Active flecainide 50 mg tablet RxNorm: 545306 1 Tablet(s) PO BID No Start Date Active gabapentin 300 mg ca psule RxNorm: 003827 1 Capsule(s) PO TID No Start Date 03/30/2017 Inactive Carafate 1 gram tablet RxNorm: 976935 1 Tablet(s) PO QID No Start Date 02/16/2016 Inactive medroxyprogesterone 5 mg Tab RxNorm: 5069981 1 Tablet(s) PO daily No Start Date 02/08/2012 Inactive Dexilant 60 mg capsu le, delayed release RxNorm: 514601 1 Capsule(s) PO daily No Start Date 02/16/2016 Inactive Premarin 0.3 mg Tab RxNorm: 459982 1 Tablet(s) PO daily No Start Date 01/30/2012 Inactive Motrin IB 200 mg Tab RxNorm: 578769 1 Tablet(s) PO daily No Start Date 02/16/2016 Inactive Fish Oil 1,000 mg Cap RxNorm: 1 Capsule(s) PO daily No Start Date 02/16/2016 Inactive niacin 500 mg Tab RxNorm: 007004 1 Tablet(s) PO daily No Start Date 02/16/2016 Inactive Medication Administered Medication Codes Instruc tions Start Date Status Kenalog 40 mg/mL suspension for injection RxNorm: 0552232 1Milliliter 03/31/2015 N o longer Active Immunizations [...] Ord30 C/HDL 3.5 Ratio 04/14/2018 Comp Metabolic Xax670 NA 141 mEq/L 04/14/2018 Comp Metabolic Fkd032 K 4.1 mEq/L 04/14/2018 Comp Metabolic Zaz656 CL 104 mEq/L 04/14/2018 Comp Metabolic Mze665 CO2 30.0 mEq/L 04/14/2018 Comp Metabolic Bpw920 AN ION GAP 11 04/14/2018 Comp Metabolic Kcg814 GL UCOSE 101 mg/dL 04/14/2018 Comp Metabolic Tnx298 Cr eat 0.8 mg/dL 04/14/2018 Comp Metabolic Yhj250 eG FR 73 ml/min/1.73m2 04/14 Comp Metabolic Mij957 BUN 16 mg/dL 04/14/2018 Comp Metabolic Dws096 B/ C Ratio 19.3 Ratio 04/14/2018 Comp Metabolic Efm469 CA LCIUM 9.0 mg/dL 04/14/2018 Comp Metabolic Sus422 AL K PHOS 74 U/L 04/14/2018 Comp Metabolic Fyh047 T(SGOT) 18 U/L 04/14/2018 Comp Metabolic Mah353 AL T(SGPT) 13 U/L 04/14/2018 Comp Metabolic Vgl396 BI LI T 0.6 mg/dL 04/14/2018 Comp Metabolic Bfr809 AL BUMIN 4.1 g/dL 04/14/2018 Comp Metabolic Glq889 TP RO 6.1 g/dL 04/14/2018 Comp Metabolic Rnq178 GL OB 2.1 g/dL 04/14/2018 Comp Metabolic Ojo329 A/ G Ratio 2.0 Ratio 04/14/2018 Comp Metabolic Qey835 Os mo 283 mOsmo 04/14/2018 Free T4 Rue240 FREE T4 0.96 ng/dL 04/14/2018 Cbc With Differential Ord2 WBC 5.48 K/ul 04/14/2018 Cbc With Differential Ord2 RBC 4.84 M/ul 04/14/2018 Cbc With Differential Ord2 HGB 13.9 g/dl 04/14/2018 Cbc With Differential Ord2 Neut% 52.2 % 04/14/2018 Cbc With Differential Ord2 HCT 42.2 % 04/14/2018 Cbc With Differential Ord2 MCV 87.2 fl 04/14/2018 Cbc With Differential Ord2 Lymph% 36.7 % 04/14/2018 Cbc With Differential Ord2 Phillips% 9.1 % 04/14/2018 Cbc With Differential Ord2 MCH 28.7 pg 04/14/2018 Cbc With Differential Ord2 MCHC 32.9 pg 04/14/2018 Cbc With Differential Ord2 Eos% 1.6 % 04/14/2018 Cbc With Differential Ord2 Baso% 0.4 % 04/14/2018 Cbc With Differential Ord2 PLT 272 K/ul 04/14/2018 Cbc With Differential Ord2 Neut ABS# 2.86 K/ul 04/14/2018 Cbc With Differential Ord2 RDW 14.5 % 04/14/2018 Cbc With Differential Ord2 Lymph ABS# 2.01 K/ul 04/14/2018 Cbc With Differential Ord2 Phillips ABS# 0.5 K/ul 04/14/2018 Cbc With Differential Ord2 Eos ABS# 0.1 K/ul 04/14/2018 Cbc With Differential Ord2 Baso ABS# 0.0 K/ul 04/14/2018 Lipid Ord30 CHOL 173 mg/dL 03/18/2017 Lipid Ord30 HDL 51.0 mg/dl 03/18/2017 Lipid Ord30 TRIG 89 mg/dL 03/18/2017 Lipid Ord30 LDL 104 mg/dL 03/18/2017 Lipid Ord30 C/HDL 3.4 Ratio 03/18/2017 Free T4 Swz139 FREE T4 0.94 ng/dL 03/18/2017 Cbc With [...] 28.8 pg 03/18/2017 Cbc With Differential Ord2 Phillips% 7.7 % 03/18/2017 Cbc With Differential Ord2 Eos% 1.6 % 03/18/2017 Cbc With Differential Ord2 MCHC 32.8 pg 03/18/2017 Cbc With Differential Ord2 Baso% 0.5 % 03/18/2017 Cbc With Differential Ord2 PLT 264 K/ul 03/18/2017 Cbc With Differential Ord2 Neut ABS# 3.37 K/ul 03/18/2017 Cbc With Differential Ord2 RDW 14.1 % 03/18/2017 Cbc With Differential Ord2 Lymph ABS# 1.76 K/ul 03/18/2017 Cbc With Differential Ord2 Phillips ABS# 0.4 K/ul 03/18/2017 Cbc With Differential Ord2 Eos ABS# 0.1 K/ul 03/18/2017 Cbc With Differential Ord2 Baso ABS# 0.0 K/ul 03/18/2017 Tsh Ord6 hTSH II 1.47 uIU/mL 03/18/2017 Comp Metabolic Sxu150 NA 140 mEq/L 03/18/2017 Comp Metabolic Kou703 K 4.4 mEq/L 03/18/2017 Comp Metabolic Pri445 CL 105 mEq/L 03/18/2017 Comp Metabolic Nyo118 CO2 29.0 mEq/L 03/18/2017 Comp Metabolic Bnz143 AN ION GAP 10 03/18/2017 Comp Metabolic Zmr595 GL UCOSE 89 mg/dL 03/18/2017 Comp Metabolic Ule566 Cr eat 0.7 mg/dL 03/18/2017 Comp Metabolic Uga126 eG FR 86 ml/min/1.73m2 03/18 Comp Metabolic Kso306 BUN 13 mg/dL 03/18/2017 Comp Metabolic Cxi188 B/ C Ratio 18.1 Ratio 03/18/2017 Comp Metabolic Fbn883 CA LCIUM 8.8 mg/dL 03/18/2017 Comp Metabolic Yzp359 AL K PHOS 77 U/L 03/18/2017 Comp Metabolic Kud444 T(SGOT) 25 U/L 03/18/2017 Comp Metabolic Ewz127 AL T(SGPT) 18 U/L 03/18/2017 Comp Metabolic Nnv600 BI LI T 0.8 mg/dL 03/18/2017 Comp Metabolic Gzd386 AL BUMIN 4.0 g/dL 03/18/2017 Comp Metabolic Jhs818 TP RO 6.1 g/dL 03/18/2017 Comp Metabolic Crj854 GL OB 2.1 g/dL 03/18/2017 Comp Metabolic Poi892 A/ G Ratio 1.9 Ratio 03/18/2017 Comp Metabolic Pus581 Os mo 279 mOsmo 03/18/2017 Lipid Ord30 CHOL 182 mg/dL 02/17/2016 Lipid Ord30 HDL 56.0 mg/dl 02/17/2016 Lipid Ord30 TRIG 80 mg/dL 02/17/2016 Lipid Ord30 LDL 110 mg/dL 02/17/2016 Lipid Ord30 C/HDL 3.3 Ratio 02/17/2016 Free T4 Ppq423 FREE T4 1.00 ng/dL 02/17/2016 Tsh Ord6 hTSH II 2.03 uIU/mL 02/17/2016 Comp Metabolic Zzc455 NA 140 mEq/L 02/17/2016 Comp Metabolic Kae758 K 3.8 mEq/L 02/17/2016 Comp Metabolic Dfm713 CL 104 mEq/L 02/17/2016 Comp Metabolic Jkt549 CO2 32.0 mEq/L 02/17/2016 Comp Metabolic Rup244 AN ION GAP 8 02/17/2016 Comp Metabolic Qmk613 GL UCOSE 96 mg/dL 02/17/2016 Comp Metabolic Icf507 Cr eat 0.8 mg/dL 02/17/2016 Comp Metabolic Mnw390 eG FR 76 ml/min/1.73m2 02/16 Comp Metabolic Rhj598 BUN 14 mg/dL 02/17/2016 Comp Metabolic Qbo601 B/ C Ratio 17.5 Ratio 02/17/2016 Comp Metabolic Trj607 CA LCIUM 9.4 mg/dL 02/17/2016 Comp Metabolic Zec189 AL K PHOS 66 U/L 02/17/2016 Comp Metabolic Aru728 T(SGOT) 16 U/L 02/17/2016 Comp Metabolic Buy294 AL T(SGPT) 13 U/L 02/17/2016 Comp Metabolic Qcw153 BI LI T 0.8 mg/dL 02/17/2016 Comp Metabolic Mgw061 AL BUMIN 4.3 g/dL 02/17/2016 Comp Metabolic Tek696 TP RO 6.3 g/dL 02/17/2016 Comp Metabolic Xcb326 GL OB 2.0 g/dL 02/17/2016 Comp Metabolic Vci660 A/ G Ratio 2.2 Ratio 02/17/2016 Comp Metabolic Ohl274 Os mo 280 mOsmo 02/17/2016 Cbc With [...] 86.5 fl 02/17/2016 Cbc With Differential Ord2 MCH 28.8 pg 02/17/2016 Cbc With Differential Ord2 Phillips% 9.4 % 02/17/2016 Cbc With Differential Ord2 [...] 2.09 K/ul 02/17/2016 Cbc With Differential Ord2 Phillips ABS# 0.5 K/ul 02/17/2016 Cbc With Differential Ord2 Eos ABS# 0.1 K/ul 02/17/2016 Cbc With Differential Ord2 Baso ABS# 0.0 K/ul 02/17/2016 Cbc With Differential Ord2 New Analyzer Notice Please note new ref ranges s tarting 10-29-2015 due to implemntation of new five part differential hematolgy analyzer. 02/17/2016 GC/CHL PRB 3179925 CHLM PROBE NEG 04/01/2015 GC/CHL PRB 5611441 GC TN OBE NEG 04/01/2015 GC/CHL PRB 6326114 CHLM PROBE NEG 02/05/2014 GC/CHL PRB 5889225 GC TN OBE NEG 02/05/2014 Review of Systems System [...] benign 08/27/2013 None Full Exam - General 1994 Ears/Nose/Throat oral cavity/pharynx/larynx Overall: no masses 08/27/2013 [...] VACC PRSV FREE I NC ANTIG CPT-4: 11048 08/17/2017 CA SCREEN;PELVIC/GEETA AST EXAM CPT-4: G0101 03/17/2017 INITIAL PREVENTIVE EXAM CPT-4: G0402 02/19/2016 ADMIN PNEUMOCOCCAL V ACCINE SNOMED CT: 44132262 CPT-4: G0009 02/19/2016 PNEUMOCOCCAL VACC 13 MARLEN IM Formatting Model/CDA Sections, Assigned to SNOMED CT: 33643409 CPT-4: 69588Wwgpitg 02/19/2016 TRIAMCINOLONE ACET I [place] NOS CPT-4: J3301 03/31/2015 THER/PROPH/DIAG INJ SC/IM CPT-4: 03668 03/31/2015 SPECIMEN HANDLING OF FICE-LAB CPT-4: 33239 03/31/2015 Vital Signs Date Vital 04/11/2018 Blood Pressure 1: 132/80 Code: 8480-6 BMI: 23.6 Code: 62389-3 Heart Rate 1: 63 bpm Height: 5'9" SpO2: 97% Weight: 159 lbs 11 o z 03/17/2017 Blood Pressure 1: 136/78 Code: 8480-6 BMI: 22.7 Code: 01742-9 Heart Rate 1: 57 bpm Height: 5'9" SpO2: 98% Weight: 154 lbs 02/19/2016 Blood Pressure 1: 124/88 Code: 8480-6 BMI: 22.7 Code: 85157-9 Heart Rate 1: 72 bpm Height: 5'9" SpO2: 96% Waist Measure (cm): 89 cm Weight: 154 lbs 02/17/2016 Blood Pressure 1: 118/78 Code: 8480-6 Heart Rate 1: 61 bpm Height: 5'9" SpO2: 98% 03/31/2015 Blood Pressure 1: 138/68 Code: 8480-6 BMI: 23.0 Code: 86930-3 Heart Rate 1: 68 bpm Height: 5'9" Weight: 156 lbs 02/04/2014 Blood Pressure 1: 128/80 Code: 8480-6 BMI: 22.4 Code: 06632-2 Heart Rate 1: 60 bpm Height: 5'9" Weight: 152 lbs 11/29/2013 Blood Pressure 1: 102/64 Code: 8480-6 Heart Rate 1: 70 bpm SpO2: 97% Weight: 151 lbs 08/27/2013 Blood Pressure 1: 138/80 Code: 8480-6 BMI: 22.3 Code: 75043-9 Heart Rate 1: 68 bpm Height: 5'9" Weight: 151 lbs 06/28/2013 Blood Pressure 1: 112/74 Code: 8480-6 BMI: 22.3 Code: 23831-5 Heart Rate 1: 72 bpm Height: 5'9" Weight: 151 lbs 01/10/2013 Blood Pressure 1: 102/64 Code: 8480-6 BMI: 22.4 Code: 55979-5 Heart Rate 1: 64 bpm Height: 5'9" Weight: 152 lbs 11/25/2011 Blood Pressure 1: 102/76 Code: 8480-6 BMI: 23.0 Code: 41536-3 Heart Rate 1: 68 bpm Height: 5'9" Respiratory Rate: 16 bpm Weight: 156 lbs Functional Status No Functional Status data History of Present Illness Symptom Name Status Resu lt Effective Date Notes well woman exam (65+ years) Lifestyle regular seatbelt use 04/11/2018 None well woman exam (65+ years) Lifestyle family supportive 04/11/2018 None well woman exam (65+ years) Lifestyle satisfactory work/longterm experience 04/11/2018 None well woman exam (65+ [...] years) Pap Smear last normal performed on 04/11/2018 None well woman exam (65+ years) [...] well woman exam (65+ years) Lifestyle satisfactory work/longterm experience 03/17/2017 None well woman exam (65+ [...] None well woman exam (40-65 years) 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 P ATIENT, LEVEL IV Diagnosis: Atrophy of thyroid (acquired)[ICD10: E03.4] Diagnosis: Chronic atrial fibrillation[ICD10: I48.2] Heidi Christy MD, [facility] CPT-4: 28445 04/11/2018 ([id number]) 95687 EST. P ATIENT, LEVEL IV Diagnosis: Encounter for general adult medical examination without abnormal findings[ICD10: Z00.00] Diagnosis: Hypothyroidism, unspecified[ICD10: E03.9] Diagnosis: Hyperlipidemia, unspecified[ICD10: E78.5] Suzy Christy MD, [facility] CPT-4: 31996 02/17/2016 ([id number]) PREV VISIT E AGE 40-64 Diagnosis: Well woman exam with routine gynecological exam[ICD9: V72.31] Suzy Christy MD, [facility] CPT-4: 22707 03/31/2015 ([id number]) PREV VISIT E AGE 40-64 Diagnosis: ROUTINE GYNE EXAM[ICD9: V72.31] Heidi Christy MD, [facility] CPT-4: 13398 02/04/2014 ([id number]) 86667 EST. P ATIENT, LEVEL IV Diagnosis: Vaginal bleeding[ICD9: 623.8] Suzy Christy MD, [facility] CPT- 4: 86500 11/29/2013 ([id number]) 47945 EST. P ATIENT, LEVEL IV Diagnosis: Abdominal pain[ICD9: 789.00] Diagnosis: Dizziness[ICD9: 780.4] Diagnosis: Weakness[ICD9: 780.79] Heidi Christy MD, [facility] CPT-4: 76360 08/27/2013 ([id number]) 34184 EST. P ATIENT, LEVEL III Diagnosis: Tick bite[ICD9: 919.4] Suzy Christy MD, [facility] CPT-4: 66518 06/28/2013 ([id number]) PREV VISIT E AGE 40-64 Diagnosis: Well woman exam with routine gynecological exam[ICD9: V72.31] Heidi Christy MD, [facility] CPT-4: 31128 01/10/2013 [id number] EST. PATIENT, LEVEL IV Diagnosis: Abnormal Pap smear of cervix[ICD9: 795.00] Diagnosis: Abnormal weight gain[ICD9: 783.1] Heidi Christy MD, [facility] CPT-4: 62680 11/25/2011 Plan of Care Planned Activity Notes [...] or prn. 04/11/2018 Appointment: Heidi Christy WPtel: [address] [place], [place] [id number] Well Woman 04/11/2018 Patient Education: Patient Medication Summary Completed 04/11/2018 Appointment: Injection 08/17/2017 Patient Education: Patient Medication Summary Completed 08/17/2017 Visit Plan: Well Adult Female - exhector santa completed. Pap and breast exam completed. Pt will be called with results of her testing. She was advised to continue with yearly annual exams. Safe sex practices discussed durin g office visit today. Call if any abnormal gynecologic issues during the next year, otherwise, RTC yearly or prn. sample estrace cream 03/17/2017 Visit Plan: Well Adult Female - exa arina completed. Pap and breast exam completed. Pt will be called with results of her testing. She was advised to continue with yearly annual exams. Safe sex practices discussed durin g office visit today. Call if any abnormal gynecologic issues during the next year, otherwise, RTC yearly or prn. sample estrace cream 03/17/2017 Visit Plan: Well Adult Female - exa arina completed. Pap and breast exam completed. Pt [...] Completed 03/10/2016 Visit Plan: Welcome to Medicare Exhector m - today we discussed the patients [...] next year, otherwise, RTC yearly or prn. Vxhrpvagtaht-msvqk-yaqtppiql today in the office - back exercises [...] next year, otherwise, RTC yearly or prn. Pnwulwvaqsrs-ozolg-pbtngpspv today in the office - back exercises [...] next year, otherwise, RTC yearly or prn. Ujoblpwuctkg-ftgjb-yugcttymw today in the office - back exercises discussed with the patient, pt to continue with anti-inflammatories. Pt is to call if the symptoms do not improve or if they worsen. 03/31/2015 Appointment: Well Woman 03/31/2015 Patient Education: Patient Medication Summary Completed 03/31/2015 Care Plan: COMPLETE CBC AUTOMATED LOINC : 86394-0 Ordered 03/31/2015 Care Plan: GC/CHL PRB Pending [...] showing improvement. 02/04/2014 Appointment: Heidi Christy WPtel: [facility] [facility] 02/04/2014 Patient Education: Patient Medication Summary Completed 02/04/2014 Visit Plan: Vaginal bleeding- no pe lvic pain-pap negative January 2013-patient does have a history of atypical cells. Discussed with patient-plan for pelvic ultrasound-refer to Dr Barth-they will call with pierre duggan. Patient verbalized understanding of plan. 11/29/2013 Appointment: [facility] [phone] [phone] [place] Pap Only 11/29/2013 Patient Education: Patient [...] escalate. 08/27/2013 Appointment: Heidi Christy WPtel: [phone] [facility] Other 08/27/2013 Patient Education: Patient Medication [...] of plan. 06/28/2013 Appointment: Suzy Mclaughlin WPtel: [phone] Other 06/28/2013 Patient Education: Patient Medication Summary [...] or prn. 01/10/2013 Appointment: Heidi Christy WPtel: [facility] Well Woman 01/10/2013 Patient Education: Patient Medication [...] her exercise. 11/25/2011 Appointment: Heidi Christy WPtel: [facility] Pap Only 11/25/2011 Patient Education: Patient Medication [...] next year, otherwise, RTC yearly or prn. Dnvrjcmckpxj-epyka-zsmqzbybf today in the office - back exercises [...] next year, otherwise, RTC yearly or prn. Vwvxzplnxhnx-gaxdf-xgdudshrk today in the office - back exercises [...] next year, otherwise, RTC yearly or prn. Mhblzxczmrsh-kkcse-axdtdwiep today in the office - back exercises discussed with the patient, pt to continue with anti-inflammatories. Pt is to call if the symptoms do not improve or if they worsen.
--- OUTSIDE RECORDS SUMMARY | 2020-04-11 13:06 | XMS REPORT | CCD ---
Author Author Cherelle Christy Organization Heidi Christy MD, [facility] Address [address] [place] [address] Phone Care Team Providers Care Electronic Device Repairer Name Role Phone PP Unavailable CCM Unavailable Summary Purpose Interface Exchange Insurance Providers Payer name Policy type / Coverage type Covered green party ID Effective Begin Date Effective End Date WPS Medicare Part B Medicare Part B [id number] 2015 Unknown [facility] Part B [id number] Un known Family history Brother Diagnosis Age [...] 1 son 11/25/[address]: 729761505 Nonsmoker 11/25/2011 Has the patient ever used [...] Date Stop Date Sta tus Fill Instructions Synthroid 50 mcg tablet RxNorm: 703266 TAKE 1 TABLET BY MOUTH DAILY 10/06/2018 09/30/2019 Active Generic For:SYNTHROID 50MCG TAB 018 9:31:36 AM pravastatin 10 mg ta blet RxNorm: 885746 TAKE 1 TABLET BY MOUT H AT BEDTIME 02/28/2018 06/27/2018 In active Generic For:PRAVACHOL 10MG 02/28/2018 9 :27:39 AM Synthroid 50 mcg tablet RxNorm: 108000 TAKE 1 TABLET BY MOUTH DAILY 09/26/2017 09/20/2018 Inactive Generic For:SYNTHROID 50MCG TAB 017 9:16:20 AM pravastatin 10 mg ta blet RxNorm: 479859 TAKE 1 TABLET BY MOUT H AT BEDTIME 07/15/2017 11/11/2017 In active Generic For:PRAVACHOL 10MG 07/15/2017 8 :54:19 AM Estrace 0.01% (0.1 m g/gram) vaginal cream RxNorm: 071441 1 VAG BIW 05/23/2017 12/18/2017 Inactive pt wants this filled at [facility] Estrace 0.01% (0.1 m g/gram) vaginal cream RxNorm: 211296 1 VAG BIW 05/23/2017 05/22/2017 Inactive gabapentin 300 mg ca psule RxNorm: 843010 1 cap(s) po tid,Instr :for neuropathic pain 03/31/2017 No Stop Date Active pravastatin 10 mg ta blet RxNorm: 061725 TAKE 1 TABLET BY MOUT H AT BEDTIME 09/20/2016 03/18/2017 In active Generic For:PRAVACHOL 10MG 09/20/2016 9 :01:58 AM Synthroid 50 mcg tablet RxNorm: 184132 TAKE 1 TABLET BY MOUTH DAILY 07/22/2016 07/16/2017 Inactive Generic For:SYNTHROID 50MCG TAB 016 9:11:52 AM pravastatin 10 mg ta blet RxNorm: 271192 TAKE 1 TABLET BY MOUT H AT BEDTIME 03/23/2016 09/18/2016 In active Generic For:PRAVACHOL 10MG pravastatin 10 mg ta blet RxNorm: 218424 TAKE 1 TABLET BY MOUT H AT BEDTIME 09/26/2015 03/22/2016 In active Generic For:PRAVACHOL 10MG 09/26/2015 1 :46:52 PM Synthroid 50 mcg tablet RxNorm: 634136 1 Tablet(s) PO daily 07/24/2015 07/17/2016 Inactive Kenalog 40 mg/mL bernard pension for injection RxNorm: 2725416 1 Milliliter(s) Inj 03/31/2015 03/31/2015 In active pravastatin 10 mg ta blet RxNorm: 220296 TAKE 1 TABLET BY MOUT H AT BEDTIME 03/31/2015 09/25/2015 In active Generic For:PRAVACHOL 10MG 03/29/2015 8 :51:39 AM pravastatin 10 mg ta blet RxNorm: 054324 1 Tablet(s) PO QHS (n eeds appt for further refills) 02/27/2015 03/28/2015 Inactive [SAVINGS FOR NON-COVERED DR UGS -- BIN:[id number], PCN: [id number], Group: XXXXX, ID# XXXXXXX, Questions: . THIS IS NOT INSURANCE.] pravastatin 10 mg ta blet RxNorm: 755441 1 Tablet(s) PO QHS (n eeds appt for further refills) 01/28/2015 02/26/2015 Inactive [SAVINGS FOR NON-COVERED DR UGS -- BIN:920306, PCN: [id number], Group: XXXXX, ID# XXXXXXX, Questions: . THIS IS NOT INSURANCE.] pravastatin 10 mg ta blet RxNorm: 160613 1 Tablet(s) PO QHS 07/18/2014 01/13/2015 Inactive Synthroid 50 mcg tablet RxNorm: 774387 1 Tablet(s) PO daily 05/31/2014 05/25/2015 Inactive acyclovir 400 mg tablet RxNorm: 578215 1 Tablet(s) PO QID 05/31/2014 06/19/2014 Inactive Prozac 10 mg capsule RxNorm: 300448 1 Capsule(s) PO QPM 02/04/2014 02/16/2016 Inactive may dispense generic CombiPatch 0.05 mg-0 .14 mg/24 hr transdermal RxNorm: 7101560 1 Patch TD BIW 12/25/2013 01/23/2014 In active pravastatin 10 mg ta blet RxNorm: 786213 1 Tablet(s) PO QHS 12/20/2013 06/17/2014 Inactive medroxyprogesterone 5 mg tablet RxNorm: 9070759 Tablet(s) PO TAKE 1 TABLET ONCE DAILY 10 DAYS PER MONTH 09/24/2013 12/24/2013 Inactive Premarin 0.3 mg tablet RxNorm: 846691 Tablet(s) PO TAKE 1 TABLET BY MOUTH ONCE DAILY. 09/24/2013 12/24/2013 Inactive doxycycline hyclate 100 mg tablet RxNorm: 049554 1 Tablet(s) PO BID 06/28/2013 07/04/2013 Inactive pravastatin 10 mg ta blet RxNorm: 198333 1 Tablet(s) PO QHS 05/31/2013 11/26/2013 Inactive Synthroid 50 mcg tablet RxNorm: 831200 1 Tablet(s) PO daily 03/22/2013 03/21/2013 Inactive Synthroid 50 mcg tablet RxNorm: 577296 1 Tablet(s) PO daily 03/22/2013 03/16/2014 Inactive pravastatin 10 mg ta blet RxNorm: 061843 1 Tablet(s) PO QHS 01/15/2013 05/14/2013 Inactive Synthroid 25 mcg tablet RxNorm: 411856 1 Tablet(s) PO daily 01/15/2013 03/22/2013 Inactive brand name only pravastatin 10 mg ta blet RxNorm: 047758 1 Tablet(s) PO QHS 01/15/2013 01/14/2013 Inactive Climara Pro 0.045 mg -0.015 mg/24 hr Transderm Patch RxNorm: 783339 1 Application TD QW 01/10/2013 08/26/2013 Inactive Synthroid 25 mcg tablet RxNorm: 017085 1 Tablet(s) PO daily 01/10/2013 01/14/2013 Inactive acyclovir 400 mg tablet RxNorm: 393223 1 Tablet(s) PO QID 10/31/2012 11/09/2012 Inactive levothyroxine 25 mcg tablet RxNorm: 850279 1 Tablet(s) PO daily 09/05/2012 01/10/2013 Inactive medroxyprogesterone 5 mg tablet RxNorm: 8389115 Tablet(s) PO 02/09/2012 01/10/2013 Inactive TAKE 1 TABLET ONCE DAILY 10 DAYS PER Tue Premarin 0.3 mg tablet RxNorm: 248684 1 Tablet(s) PO daily 01/31/2012 01/10/2013 Inactive levothyroxine 25 mcg tablet RxNorm: 980399 1 Tablet(s) PO daily 01/20/2012 07/17/2012 Inactive levothyroxine 25 mcg Tab RxNorm: 842014 1 Tablet(s) PO daily 07/01/2011 07/30/2011 Inactive aspirin 325 mg Tab RxNorm: 294595 1 Tablet(s) PO daily No Start Date Active Eliquis 5 mg tablet RxNorm: 5851449 1 Tablet(s) PO BID No Start Date Active flecainide 50 mg tablet RxNorm: 805682 1 Tablet(s) PO BID No Start Date Active gabapentin 300 mg ca psule RxNorm: 707211 1 Capsule(s) PO TID No Start Date 03/30/2017 Inactive Carafate 1 gram tablet RxNorm: 008363 1 Tablet(s) PO QID No Start Date 02/16/2016 Inactive medroxyprogesterone 5 mg Tab RxNorm: 5513567 1 Tablet(s) PO daily No Start Date 02/08/2012 Inactive Dexilant 60 mg capsu le, delayed release RxNorm: 251791 1 Capsule(s) PO daily No Start Date 02/16/2016 Inactive Premarin 0.3 mg Tab RxNorm: 043358 1 Tablet(s) PO daily No Start Date 01/30/2012 Inactive Motrin IB 200 mg Tab RxNorm: 955138 1 Tablet(s) PO daily No Start Date 02/16/2016 Inactive Fish Oil 1,000 mg Cap RxNorm: 1 Capsule(s) PO daily No Start Date 02/16/2016 Inactive niacin 500 mg Tab RxNorm: 888319 1 Tablet(s) PO daily No Start Date 02/16/2016 Inactive Medication Administered Medication Codes Instruc tions Start Date Status Kenalog 40 mg/mL suspension for injection RxNorm: 0432135 1Milliliter 03/31/2015 N o longer Active Immunizations [...] Ord30 C/HDL 3.5 Ratio 04/14/2018 Comp Metabolic Ydv974 NA 141 mEq/L 04/14/2018 Comp Metabolic Nzs852 K 4.1 mEq/L 04/14/2018 Comp Metabolic Gnm052 CL 104 mEq/L 04/14/2018 Comp Metabolic Ato979 CO2 30.0 mEq/L 04/14/2018 Comp Metabolic Iti997 AN ION GAP 11 04/14/2018 Comp Metabolic Tki188 GL UCOSE 101 mg/dL 04/14/2018 Comp Metabolic Vbt412 Cr eat 0.8 mg/dL 04/14/2018 Comp Metabolic Vul696 eG FR 73 ml/min/1.73m2 04/14 Comp Metabolic Wlr362 BUN 16 mg/dL 04/14/2018 Comp Metabolic Ihj312 B/ C Ratio 19.3 Ratio 04/14/2018 Comp Metabolic Twv924 CA LCIUM 9.0 mg/dL 04/14/2018 Comp Metabolic Usu295 AL K PHOS 74 U/L 04/14/2018 Comp Metabolic Rco860 T(SGOT) 18 U/L 04/14/2018 Comp Metabolic Wql396 AL T(SGPT) 13 U/L 04/14/2018 Comp Metabolic Eus149 BI LI T 0.6 mg/dL 04/14/2018 Comp Metabolic Dzu760 AL BUMIN 4.1 g/dL 04/14/2018 Comp Metabolic Dxx797 TP RO 6.1 g/dL 04/14/2018 Comp Metabolic Bgp046 GL OB 2.1 g/dL 04/14/2018 Comp Metabolic Xoj911 A/ G Ratio 2.0 Ratio 04/14/2018 Comp Metabolic Nly214 Os mo 283 mOsmo 04/14/2018 Free T4 Kok807 FREE T4 0.96 ng/dL 04/14/2018 Cbc With [...] 36.7 % 04/14/2018 Cbc With Differential Ord2 Dyer% 9.1 % 04/14/2018 Cbc With Differential Ord2 [...] 2.01 K/ul 04/14/2018 Cbc With Differential Ord2 Dyer ABS# 0.5 K/ul 04/14/2018 Cbc With Differential Ord2 Eos ABS# 0.1 K/ul 04/14/2018 Cbc With Differential Ord2 Baso ABS# 0.0 K/ul 04/14/2018 Lipid Ord30 CHOL 173 mg/dL 03/18/2017 Lipid Ord30 HDL 51.0 mg/dl 03/18/2017 Lipid Ord30 TRIG 89 mg/dL 03/18/2017 Lipid Ord30 LDL 104 mg/dL 03/18/2017 Lipid Ord30 C/HDL 3.4 Ratio 03/18/2017 Free T4 Kkq837 FREE T4 0.94 ng/dL 03/18/2017 Cbc With [...] 28.8 pg 03/18/2017 Cbc With Differential Ord2 Dyer% 7.7 % 03/18/2017 Cbc With Differential Ord2 [...] 1.76 K/ul 03/18/2017 Cbc With Differential Ord2 Dyer ABS# 0.4 K/ul 03/18/2017 Cbc With Differential Ord2 Eos ABS# 0.1 K/ul 03/18/2017 Cbc With Differential Ord2 Baso ABS# 0.0 K/ul 03/18/2017 Tsh Ord6 hTSH II 1.47 uIU/mL 03/18/2017 Comp Metabolic Qcn326 NA 140 mEq/L 03/18/2017 Comp Metabolic Qfi332 K 4.4 mEq/L 03/18/2017 Comp Metabolic Vmm840 CL 105 mEq/L 03/18/2017 Comp Metabolic Grf991 CO2 29.0 mEq/L 03/18/2017 Comp Metabolic Fpg690 AN ION GAP 10 03/18/2017 Comp Metabolic Jqz788 GL UCOSE 89 mg/dL 03/18/2017 Comp Metabolic Eei308 Cr eat 0.7 mg/dL 03/18/2017 Comp Metabolic Rry357 eG FR 86 ml/min/1.73m2 03/18 Comp Metabolic Hur696 BUN 13 mg/dL 03/18/2017 Comp Metabolic Rrl393 B/ C Ratio 18.1 Ratio 03/18/2017 Comp Metabolic Kwz942 CA LCIUM 8.8 mg/dL 03/18/2017 Comp Metabolic Gwh992 AL K PHOS 77 U/L 03/18/2017 Comp Metabolic Oca752 T(SGOT) 25 U/L 03/18/2017 Comp Metabolic Arv541 AL T(SGPT) 18 U/L 03/18/2017 Comp Metabolic Kod151 BI LI T 0.8 mg/dL 03/18/2017 Comp Metabolic Wqz219 AL BUMIN 4.0 g/dL 03/18/2017 Comp Metabolic Kll778 TP RO 6.1 g/dL 03/18/2017 Comp Metabolic Jwa103 GL OB 2.1 g/dL 03/18/2017 Comp Metabolic Iep501 A/ G Ratio 1.9 Ratio 03/18/2017 Comp Metabolic Pou540 Os mo 279 mOsmo 03/18/2017 Lipid Ord30 CHOL 182 mg/dL 02/17/2016 Lipid Ord30 HDL 56.0 mg/dl 02/17/2016 Lipid Ord30 TRIG 80 mg/dL 02/17/2016 Lipid Ord30 LDL 110 mg/dL 02/17/2016 Lipid Ord30 C/HDL 3.3 Ratio 02/17/2016 Free T4 Zud071 FREE T4 1.00 ng/dL 02/17/2016 Tsh Ord6 hTSH II 2.03 uIU/mL 02/17/2016 Comp Metabolic Uhy260 NA 140 mEq/L 02/17/2016 Comp Metabolic Gff432 K 3.8 mEq/L 02/17/2016 Comp Metabolic Ruq652 CL 104 mEq/L 02/17/2016 Comp Metabolic Cpk815 CO2 32.0 mEq/L 02/17/2016 Comp Metabolic Hjx170 AN ION GAP 8 02/17/2016 Comp Metabolic Aew612 GL UCOSE 96 mg/dL 02/17/2016 Comp Metabolic Lht321 Cr eat 0.8 mg/dL 02/17/2016 Comp Metabolic Tkj390 eG FR 76 ml/min/1.73m2 02/16 Comp Metabolic Wsw135 BUN 14 mg/dL 02/17/2016 Comp Metabolic Pke897 B/ C Ratio 17.5 Ratio 02/17/2016 Comp Metabolic Bzw875 CA LCIUM 9.4 mg/dL 02/17/2016 Comp Metabolic Jpf150 AL K PHOS 66 U/L 02/17/2016 Comp Metabolic Uca874 T(SGOT) 16 U/L 02/17/2016 Comp Metabolic Mkr712 AL T(SGPT) 13 U/L 02/17/2016 Comp Metabolic Ruw224 BI LI T 0.8 mg/dL 02/17/2016 Comp Metabolic Rha008 AL BUMIN 4.3 g/dL 02/17/2016 Comp Metabolic Tad470 TP RO 6.3 g/dL 02/17/2016 Comp Metabolic Tus719 GL OB 2.0 g/dL 02/17/2016 Comp Metabolic Gyd357 A/ G Ratio 2.2 Ratio 02/17/2016 Comp Metabolic Uou572 Os mo 280 mOsmo 02/17/2016 Cbc With [...] 28.8 pg 02/17/2016 Cbc With Differential Ord2 Dyer% 9.4 % 02/17/2016 Cbc With Differential Ord2 [...] 2.09 K/ul 02/17/2016 Cbc With Differential Ord2 Dyer ABS# 0.5 K/ul 02/17/2016 Cbc With Differential Ord2 Eos ABS# 0.1 K/ul 02/17/2016 Cbc With Differential Ord2 Baso ABS# 0.0 K/ul 02/17/2016 Cbc With Differential Ord2 New Analyzer Notice Please note new ref ranges s tarting 10-29-2015 due to implemntation of new five part differential hematolgy analyzer. 02/17/2016 GC/CHL PRB 2590408 CHLM PROBE NEG 04/01/2015 GC/CHL PRB 6310280 GC IA OBE NEG 04/01/2015 GC/CHL PRB 4822823 CHLM PROBE NEG 02/05/2014 GC/CHL PRB 1708210 GC IA OBE NEG 02/05/2014 Review of Systems System [...] rate 01/10/2013 None Full Exam - General 1995 Cardiovascular [...] VACC PRSV FREE I NC ANTIG CPT-4: 11354 08/17/2017 CA SCREEN;PELVIC/GEETA AST EXAM CPT-4: G0101 03/17/2017 INITIAL PREVENTIVE EXAM CPT-4: G0402 02/19/2016 ADMIN PNEUMOCOCCAL V ACCINE SNOMED CT: 06200255 CPT-4: G0009 02/19/2016 PNEUMOCOCCAL VACC 13 MARLEN IM Formatting Model/CDA Sections, Assigned to SNOMED CT: 23481522 CPT-4: 43435Ifcbroa 02/19/2016 TRIAMCINOLONE ACET I [place] NOS CPT-4: J3301 03/31/2015 THER/PROPH/DIAG INJ SC/IM CPT-4: 50482 03/31/2015 SPECIMEN HANDLING OF FICE-LAB CPT-4: 55396 03/31/2015 Vital Signs Date Vital 04/11/2018 Blood Pressure 1: 132/80 Code: 8480-6 BMI: 23.6 Code: 89991-4 Heart Rate 1: 63 bpm Height: 5'9" SpO2: 97% Weight: 159 lbs 11 o z 03/17/2017 Blood Pressure 1: 136/78 Code: 8480-6 BMI: 22.7 Code: 92183-6 Heart Rate 1: 57 bpm Height: 5'9" SpO2: 98% Weight: 154 lbs 02/19/2016 Blood Pressure 1: 124/88 Code: 8480-6 BMI: 22.7 Code: 16219-4 Heart Rate 1: 72 bpm Height: 5'9" SpO2: 96% Waist Measure (cm): 89 cm Weight: 154 lbs 02/17/2016 Blood Pressure 1: 118/78 Code: 8480-6 Heart Rate 1: 61 bpm Height: 5'9" SpO2: 98% 03/31/2015 Blood Pressure 1: 138/68 Code: 8480-6 BMI: 23.0 Code: 36729-9 Heart Rate 1: 68 bpm Height: 5'9" Weight: 156 lbs 02/04/2014 Blood Pressure 1: 128/80 Code: 8480-6 BMI: 22.4 Code: 65532-7 Heart Rate 1: 60 bpm Height: 5'9" Weight: 152 lbs 11/29/2013 Blood Pressure 1: 102/64 Code: 8480-6 Heart Rate 1: 70 bpm SpO2: 97% Weight: 151 lbs 08/27/2013 Blood Pressure 1: 138/80 Code: 8480-6 BMI: 22.3 Code: 83229-0 Heart Rate 1: 68 bpm Height: 5'9" Weight: 151 lbs 06/28/2013 Blood Pressure 1: 112/74 Code: 8480-6 BMI: 22.3 Code: 00299-3 Heart Rate 1: 72 bpm Height: 5'9" Weight: 151 lbs 01/10/2013 Blood Pressure 1: 102/64 Code: 8480-6 BMI: 22.4 Code: 42289-1 Heart Rate 1: 64 bpm Height: 5'9" Weight: 152 lbs 11/25/2011 Blood Pressure 1: 102/76 Code: 8480-6 BMI: 23.0 Code: 86969-5 Heart Rate 1: 68 bpm Height: 5'9" Respiratory Rate: 16 bpm Weight: 156 lbs Functional Status No Functional Status data History of Present Illness Symptom Name Status Resu lt Effective Date Notes well woman exam (65+ years) Lifestyle regular seatbelt use 04/11/2018 None well woman exam (65+ years) Lifestyle family supportive 04/11/2018 None well woman exam (65+ years) Lifestyle 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 P ATIENT, LEVEL IV Diagnosis: Atrophy of thyroid (acquired)[ICD10: E03.4] Diagnosis: Chronic atrial fibrillation[ICD10: I48.2] Heidi Christy MD, LL C CPT-4: 84239 04/11/2018 ([id number]) 60328 EST. P ATIENT, LEVEL IV Diagnosis: Encounter for general adult medical examination without abnormal findings[ICD10: Z00.00] Diagnosis: Hypothyroidism, unspecified[ICD10: E03.9] Diagnosis: Hyperlipidemia, unspecified[ICD10: E78.5] Suzy Christy MD, [facility] CPT-4: 21853 02/17/2016 ([id number]) PREV VISIT E AGE 40-64 Diagnosis: Well woman exam with routine gynecological exam[ICD9: V72.31] Suzy Christy MD, [facility] CPT-4: 97315 03/31/2015 ([id number]) PREV VISIT E AGE 40-64 Diagnosis: ROUTINE GYNE EXAM[ICD9: V72.31] Heidi Christy MD, [facility] CPT-4: 30597 02/04/2014 ([id number]) 27579 EST. P ATIENT, LEVEL IV Diagnosis: Vaginal bleeding[ICD9: 623.8] Suzy Christy MD, [facility] CPT- 4: 25090 11/29/2013 ([id number]) 41162 EST. P ATIENT, LEVEL IV Diagnosis: Abdominal pain[ICD9: 789.00] Diagnosis: Dizziness[ICD9: 780.4] Diagnosis: Weakness[ICD9: 780.79] Heidi Christy MD, [facility] CPT-4: 33433 08/27/2013 ([id number]) 13983 EST. P ATIENT, LEVEL III Diagnosis: Tick bite[ICD9: 919.4] Suzy Christy MD, [facility] CPT-4: 65942 06/28/2013 ([id number]) PREV VISIT E AGE 40-64 Diagnosis: Well woman exam with routine gynecological exam[ICD9: V72.31] Heidi Christy MD, [facility] CPT-4: 33993 01/10/2013 76713 EST. PATIENT, LEVEL IV Diagnosis: Abnormal Pap smear of cervix[ICD9: 795.00] Diagnosis: Abnormal weight gain[ICD9: 783.1] Heidi Christy MD, [facility] CPT-4: 35006 11/25/2011 Plan of Care Planned Activity Notes [...] or prn. 04/11/2018 Appointment: Heidi Christy WPtel: [facility] [place] [facility] 04/11/2018 Patient Education: Patient Medication [...] 03/17/2017 Visit Plan: Well Adult Female - exhector m completed. Pap and breast exam completed. [...] next year, otherwise, RTC yearly or prn. Koafnqcdglxv-abhfk-vilywkkuv today in the office - back exercises [...] next year, otherwise, RTC yearly or prn. Ndzqzjwexfgc-zymvf-tzkqsfxyt today in the office - back exercises [...] next year, otherwise, RTC yearly or prn. Uvqmpurssoyq-gtrps-vomdslgzl today in the office - back exercises discussed with the patient, pt to continue with anti-inflammatories. Pt is to call if the symptoms do not improve or if they worsen. 03/31/2015 Appointment: Well Woman 03/31/2015 Patient Education: Patient Medication Summary Completed 03/31/2015 Care Plan: COMPLETE CBC AUTOMATED LOINC : 68993-7 Ordered 03/31/2015 Care Plan: GC/CHL PRB Pending [...] showing improvement. 02/04/2014 Appointment: Heidi Christy WPtel: [address] [place] [address] Well Woman 02/04/2014 Patient Education: Patient Medication Summary Completed 02/04/2014 Visit Plan: Vaginal bleeding- no pe lvic pain-pap negative January 2013-patient does have a history of atypical cells. Discussed with patient-plan for pelvic ultrasound-refer to Dr Barth-they will call with appwendy duggan. Patient verbalized understanding of plan. 11/29/2013 Appointment: Suzy Mclaughlin WPtel[phone] [place] Pap Only 11/29/2013 Patient Education: Patient [...] symptoms escalate. 08/27/2013 Appointment: Heidi Christy WPtel: [phone] [facility] Other 08/27/2013 Patient Education: Patient Medication Summary Completed 08/27/2013 Visit Plan: Tick bite-start oral an tibiotics as directed, return to clinic as previously directed, call for acute change in symptoms, worsening redness, warmth, discharge. Discuss s/s of tick illness and instructed patient to call if any symptoms develop. RX for doxycycline sent to patient's pharmacy. Patient verbalized understanding of plan. 06/28/2013 Appointment: Arnoldo Suzy WPtel: [phone] [facility] [place] [address] 06/28/2013 Patient Education: Patient Medication Summary Completed [...] or prn. 01/10/2013 Appointment: Heidi Christy WPtel: [facility] Well Woman 01/10/2013 Patient Education: Patient [...] her exercise. 11/25/2011 Appointment: [facility] Christ[facility]el[facility] [phone] [facility] [place] [place] Pap Only 11/25/2011 Patient Education: Patient [...] next year, otherwise, RTC yearly or prn. Xfpclplqlpwf-hdpjx-dvjnvbxuc today in the office - back exercises [...] next year, otherwise, RTC yearly or prn. Wyfrjwsjucoi-znhtv-rvdwpwcbu today in the office - back exercises [...] next year, otherwise, RTC yearly or prn. Wfjqscrtxspa-viymw-hfmxzypxx today in the office - back exercises discussed with the patient, pt to continue with anti-inflammatories. Pt is to call if the symptoms do not improve or if they worsen.
--- OUTSIDE RECORDS SUMMARY | 2020-04-11 13:07 | XMS REPORT | Continuity of Care Document ---
Author Organization Unknown Address Unknown Phone Unavailable Allergies Active Description Code Type Severity Reaction Onset Reported/Identified Relationship to Patient Clinical Status Yes No Known Drug Allergies [id number] Drug Allergy Unknown N/A 12/26/2019 Medications There is no data. Problems Date Dx Coded Attending Type Code Diagnosis Diagnosed By 02/09/2013 ROC GATES MD Ot 530.11 REFLUX ESOPHAGITIS 02/09/2013 ROC GATES MD Ot 535.40 OTH SPECIFIED GASTRITIS,W/O MENTION OF H 02/09/2013 ROC GATES MD Ot 553.3 DIAPHRAGMATIC HERNIA 01/24/2015 ROC GATES MD Ot 789.01 01/31/2015 ROC GATES MD Ot 789.01 03/13/2015 REGINA BURNHAMP Ot V76.12 03/13/2015 REGINA BURNHAM [employer] RECOV[employer] TECHNICIAN Ot V76.12 04/02/2015 REGINA BURNHAM [employer] RECOV[employer] TECHNICIAN Ot V76.12 06/02/2015 Ot V76.12 06/02/2015 Ot 611.89 06/02/2015 Ot V76.12 06/02/2015 Ot 793.80 06/02/2015 Ot 793.80 06/02/2015 Ot V76.12 06/02/2015 ROC GATES MD Ot 789.00 06/02/2015 Ot V72.84 06/02/2015 NICA ANDERSON [facility], CECILE MOREJONP CCDS Ot 272.4 06/02/2015 NICA ANDERSON FAC, ALI FACP CCDS Ot 627.2 06/02/2015 NICA ANDERSON FAC, ALI FACP CCDS Ot 780.2 06/02/2015 NICA ANDERSON FAC, ALI FACP CCDS Ot 780.4 06/02/2015 OBINNA HALL DO Ot 627.1 06/02/2015 REGINA BURNHAM [employer] RECOV[employer] TECHNICIAN Ot V76.12 06/02/2015 BELL ROBLES MD Ot 793.80 06/02/2015 JOSE ANDERSON, OBINNA Conrad Ot 722.52 06/02/2015 KODY ANDERSON, ROC Ot 789.01 06/02/2015 KODY ANDERSON, ROC Ot 789.01 06/02/2015 REGINA BURNHAM [employer] RECOV[employer] TECHNICIAN Ot V76.12 06/16/2015 Ot V76.12 06/16/2015 Ot 611.89 06/16/2015 Ot V76.12 06/16/2015 Ot 793.80 06/16/2015 Ot 793.80 06/16/2015 Ot V76.12 06/16/2015 KODY ANDERSON, ROC Ot 789.00 06/16/2015 Ot V72.84 06/16/2015 NICA ANDERSON FACC, ALI FACP CCDS Ot 272.4 06/16/2015 NICA ANDERSON FACC, ALI FACP CCDS Ot 627.2 06/16/2015 NICA ANDERSON FACC, ALI FACP CCDS Ot 780.2 06/16/2015 NICA ANDERSON FACC, ALI FACP CCDS Ot 780.4 06/16/2015 [facility] OBINNA FORRESTER Ot 627.1 06/16/2015 REGINA BURNHAM [facility] Ot V76.12 06/16/2015 TRAVSI ANDERSON, BELL Zavala Ot 793.80 06/16/2015 JOSE ANDERSON, OBINNA Conrad Ot 722.52 06/16/2015 KODY ANDERSON, ROC Ot 789.01 06/16/2015 KODY ANDERSON, ROC Ot 789.01 06/16/2015 REGINA BURNHAM [facility] Ot V76.12 08/22/2015 SCARLETT SWANSON MD Ot M47.816 SPONDYLOSIS W/O MYELOPATHY OR RADICULOPA 08/22/2015 SCARLETT SWANSON MD Ot M51. 16 INTERVERTEBRAL DISC DISORDERS W RADICULO 08/22/2015 SCARLETT SWANSON MD Ot Z79.899 OTHER GROUP HOME (CURRENT) DRUG THERAPY 10/30/2015 Ot 611.89 10/30/2015 Ot V76.12 10/30/2015 Ot 793.80 10/30/2015 Ot 793.80 10/30/2015 Ot V76.12 10/30/2015 KIDO MD, TAKAAKI Ot 789.00 10/30/2015 Ot V72.84 10/30/2015 NICA ANDERSON [facility], ALI FACP CCDS Ot 272.4 10/30/2015 NICA ANDERSON [facility], ALI FACP CCDS Ot 627.2 10/30/2015 NICA ANDERSON [facility], ALI FACP CCDS Ot 780.2 10/30/2015 NICA ANDERSON [facility], ALI FACP CCDS Ot 780.4 10/30/2015 OBINNA HALL DO Ot 627.1 10/30/2015 REGINA BURNHAM [employer] RECOV[employer] TECHNICIAN Ot V76.12 10/30/2015 TRAVIS ANDERSON, BELL Zavala Ot 793.80 10/30/2015 JOSE ANDERSON, OBINNA Conrad Ot 722.52 10/30/2015 KODY ANDERSON, ROC Ot 789.01 10/30/2015 KODY ANDERSON, ROC Ot 789.01 10/30/2015 REGINA BURNHAM [employer] RECOV[employer] TECHNICIAN Ot V76.12 03/19/2016 KIKI ANDERSON, SCARLETT Villanueva Ot M47.816 SPONDYLOSIS W/O MYELOPATHY OR RADICULOPA 03/19/2016 SCARLETT SWANSON MD Ot M51. 16 INTERVERTEBRAL DISC DISORDERS W RADICULO 03/19/2016 SCARLETT SWANSON MD Ot Z79.899 OTHER COAGULATOR (CURRENT) DRUG THERAPY 03/31/2016 CLARISSA RIVERS APRN Ot Z12.31 ENCNTR SCREEN MAMMOGRAM FOR MALIGNANT NE 03/31/2016 REGINA BURNHAM [employer] RECOV[employer] TECHNICIAN Ot Z13.820 ENCOUNTER FOR SCREENING FOR OSTEOPOROSIS 03/31/2016 REGINA BURNHAM [employer] RECOV[employer] TECHNICIAN Ot Z78.0 ASYMPTOMATIC MENOPAUSAL STATE 04/01/2016 REGINA BURNHAM [employer] RECOVERY TECHNICIAN Ot Z13.820 ENCOUNTER FOR SCREENING FOR OSTEOPOROSIS 04/01/2016 REGINA BURNHAM [employer] RECOVERY TECHNICIAN Ot Z78.0 ASYMPTOMATIC MENOPAUSAL STATE 04/02/2016 CLARISSA RIVERS APRN Ot Z12.31 ENCNTR SCREEN MAMMOGRAM FOR MALIGNANT NE 04/21/2016 REGINA BURNHAM [employer] RECOVERY TECHNICIAN Ot Z13.820 ENCOUNTER FOR SCREENING FOR OSTEOPOROSIS 04/21/2016 REGINA BURNHAM [employer] RECOVERY TECHNICIAN Ot Z78.0 ASYMPTOMATIC MENOPAUSAL STATE 04/21/2016 CLARISSA RIVERS APRN Ot Z12.31 ENCNTR SCREEN MAMMOGRAM FOR MALIGNANT NE 06/15/2016 ROC GATES MD Ot R10.13 EPIGASTRIC PAIN 06/15/2016 ROC GATES MD Ot Z01.81 8 ENCOUNTER FOR OTHER PREPROCEDURAL EXAMIN 06/15/2016 ROC GATES MD Ot Z86.01 0 PERSONAL HISTORY OF COLONIC POLYPS 06/16/2016 ROC GATES MD Ot R10.13 EPIGASTRIC PAIN 06/16/2016 ROC GATES MD Ot Z01.81 8 ENCOUNTER FOR OTHER PREPROCEDURAL EXAMIN 06/16/2016 ROC GATES MD Ot Z86.01 0 PERSONAL HISTORY OF COLONIC POLYPS 06/16/2016 REGINA BURNHAM [employer] RECOVERY TECHNICIAN Ot Z13.820 ENCOUNTER FOR SCREENING FOR OSTEOPOROSIS 06/16/2016 REGINA BURNHAM [employer] RECOVERY TECHNICIAN Ot Z78.0 ASYMPTOMATIC MENOPAUSAL STATE 06/16/2016 CLARISSA RIVERS WAFER FABRICATION OPERATOR Ot Z12.31 ENCNTR SCREEN MAMMOGRAM FOR MALIGNANT NE 06/16/2016 ROC GATES MD Ot K21.0 GASTRO-ESOPHAGEAL REFLUX DISEASE WITH ES 06/16/2016 ORC GATES MD Ot K29.70 GASTRITIS, UNSPECIFIED, WITHOUT BLEEDING 06/16/2016 ROC GATES MD Ot K57.90 DVRTCLOS OF INTEST, PART UNSP, W/O PERF 06/16/2016 ROC GATES MD Ot Z86.01 0 PERSONAL HISTORY OF COLONIC POLYPS 06/18/2016 ROC GATES MD Ot K21.0 GASTRO-ESOPHAGEAL REFLUX DISEASE WITH ES 06/18/2016 ROC GATES MD Ot K29.70 GASTRITIS, UNSPECIFIED, WITHOUT BLEEDING 06/18/2016 ROC GATES MD Ot K57.90 DVRTCLOS OF INTEST, PART UNSP, W/O PERF 06/18/2016 ROC GATES MD Ot Z86.01 0 PERSONAL HISTORY OF COLONIC POLYPS 06/28/2016 ROC GATES MD Ot K21.0 GASTRO-ESOPHAGEAL REFLUX DISEASE WITH ES 06/28/2016 ROC GATES MD Ot K29.70 GASTRITIS, UNSPECIFIED, WITHOUT BLEEDING 06/28/2016 ROC GATES MD Ot K57.90 DVRTCLOS OF INTEST, PART UNSP, W/O PERF 06/28/2016 KODY ANDERSON, ROC Ot Z86.01 0 PERSONAL HISTORY OF COLONIC POLYPS 05/27/2017 CLARISSA RIVERS WAFER FABRICATION OPERATOR Ot Z12.31 ENCNTR SCREEN MAMMOGRAM FOR MALIGNANT NE 05/30/2017 CLARISSA RIVERS WAFER FABRICATION OPERATOR Ot Z12.31 ENCNTR SCREEN MAMMOGRAM FOR MALIGNANT NE 06/22/2017 CLARISSA RIVERS WAFER FABRICATION OPERATOR Ot Z12.31 ENCNTR SCREEN MAMMOGRAM FOR MALIGNANT NE 07/28/2017 Ot V76.12 OTH SCREEN MAMMO- MALIGN NEOPLASM OF EARNEST 07/28/2017 KODY ANDERSON, ROC Ot 789.00 ABDOMINAL PAIN, UNSPECIFIED SITE 07/28/2017 Ot V72.84 EXA M PRE- OPERATIVE NOS 07/28/2017 NICA ANDERSON FAC, ALI FACP CCDS Ot 272.4 HYPERLIPIDEMIA NEC/NOS 07/28/2017 NICA ANDERSON FACC, ALI FACP CCDS Ot 627.2 SYMPT MENOPAUSE OR FEMALE CLIMACTERIC ST 07/28/2017 NICA ANDERSON FACC, ALI FACP CCDS Ot 780.2 SYNCOPE AND COLLAPSE 07/28/2017 NICA ANDERSON FACC, ALI FACP CCDS Ot 780.4 DIZZINESS AND GIDDINESS 07/28/2017 OBINNA HALL DO Ot 627.1 POSTMENOPAUSAL BLEEDING 07/28/2017 REGINA BURNHAM Ot V76.12 OTH SCREEN MAMMO-MALIGN NEOPLASM OF EARNEST 07/28/2017 TRAVIS ANDERSON, BELL Zavala Ot 793.80 UNSPEC ABNORMAL MAMMOGRAM 07/28/2017 JOSE ANDERSON, OBINNA Conrad Ot 722.52 LUMB/LUMBOSAC DISC DEGEN 07/28/2017 KODY ANDERSON, ROC Ot 789.01 ABDOMINAL PAIN, RIGHT UPPER QUADRANT 07/28/2017 ROC GATES MD Ot 789.01 ABDOMINAL PAIN, RIGHT UPPER QUADRANT 07/28/2017 REGINA BURNHAM Ot V76.12 OTH SCREEN MAMMO-MALIGN NEOPLASM OF EARNEST 07/29/2017 Ot V76.12 OTH SCREEN MAMMO- MALIGN NEOPLASM OF EARNEST 07/29/2017 ROC GATES MD Ot 789.00 ABDOMINAL PAIN, UNSPECIFIED SITE 07/29/2017 Ot V72.84 EXA M PRE- OPERATIVE NOS 07/29/2017 NICA ANDERSON FACC, ALI FACP CCDS Ot 272.4 HYPERLIPIDEMIA NEC/NOS 07/29/2017 NICA ANDERSON FACC, ALI FACP CCDS Ot 627.2 SYMPT MENOPAUSE OR FEMALE CLIMACTERIC ST 07/29/2017 NICA ANDERSON FACC, ALI FACP CCDS Ot 780.2 SYNCOPE AND COLLAPSE 07/29/2017 NICA ANDERSON FACC, ALI FACP CCDS Ot 780.4 DIZZINESS AND GIDDINESS 07/29/2017 OBINNA HALL DO Ot 627.1 POSTMENOPAUSAL BLEEDING 07/29/2017 REGINA BURNHAM [employer] RECOVERY TECHNICIAN Ot V76.12 OTH SCREEN MAMMO-MALIGN NEOPLASM OF EARNEST 07/29/2017 TRAVIS ANDERSON, BELL Zavala Ot 793.80 UNSPEC ABNORMAL MAMMOGRAM 07/29/2017 JOSE ANDERSON, OBINNA Conrad Ot 722.52 LUMB/LUMBOSAC DISC DEGEN 07/29/2017 KODY ANDERSON, ROC Ot 789.01 ABDOMINAL PAIN, RIGHT UPPER QUADRANT 07/29/2017 ROC GATES MD Ot 789.01 ABDOMINAL PAIN, RIGHT UPPER QUADRANT 07/29/2017 REGINA BURNHAM [employer] RECOVERY TECHNICIAN Ot V76.12 OTH SCREEN MAMMO-MALIGN NEOPLASM OF EARNEST 10/05/2017 REGINA BURNHAM [employer] LA[employer] RECOVERY TECHNICIAN Ot Z13.820 ENCOUNTER FOR SCREENING FOR OSTEOPOROSIS 10/05/2017 REGINA BURNHAM [employer] LA[employer] RECOVERY TECHNICIAN Ot Z78.0 ASYMPTOMATIC MENOPAUSAL STATE 10/05/2017 CLARISSA RIVERS WAFER FABRICATION OPERATOR Ot Z12.31 ENCNTR SCREEN MAMMOGRAM FOR MALIGNANT NE 10/05/2017 CLARISSA RIVERS WAFER FABRICATION OPERATOR Ot Z12.31 ENCNTR SCREEN MAMMOGRAM FOR MALIGNANT NE 10/12/2017 NICA ANDERSON FACC, CECILE FACP CCDS Ot E78.4 OTHER HYPERLIPIDEMIA 10/12/2017 NICA ANDERSON FACC, ALI FACP CCDS Ot R00.2 PALPITATIONS 10/12/2017 NICA ANDERSON FACC, ALI FACP CCDS Ot R55 SYNCOPE AND COLLAPSE 10/17/2017 NICA ANDERSON FACC, ALI FACP CCDS Ot E78.4 OTHER HYPERLIPIDEMIA 10/17/2017 NICA ANDERSON FACC, ALI FACP CCDS Ot R00.2 PALPITATIONS 10/17/2017 NICA ANDERSON FACC, ALI FACP CCDS Ot R55 SYNCOPE AND COLLAPSE 11/07/2017 NICA ANDERSON [facility], ALI FACP CCDS Ot E78.4 OTHER HYPERLIPIDEMIA 11/07/2017 NICA ANDERSON [facility], ALI FACP CCDS Ot R00.2 PALPITATIONS 11/07/2017 NICA ANDERSON [facility], ALI FACP CCDS Ot R55 SYNCOPE AND COLLAPSE 11/09/2017 NICA ANDERSON [facility], ALI FACP CCDS Ot E78.4 OTHER HYPERLIPIDEMIA 11/09/2017 NICA ANDERSON [facility], ALI FACP CCDS Ot R00.2 PALPITATIONS 11/09/2017 NICA ANDERSON [facility], ALI FACP CCDS Ot R55 SYNCOPE AND COLLAPSE 04/17/2018 CLARISSA RIVERS WAFER FABRICATION OPERATOR Ot Z12.31 ENCNTR SCREEN MAMMOGRAM FOR MALIGNANT NE 04/17/2018 CLARISSA RIVERS WAFER FABRICATION OPERATOR Ot Z12.31 ENCNTR SCREEN MAMMOGRAM FOR MALIGNANT NE 06/02/2018 REGINA BURNHAM [employer] LA[employer]CH [employer] RECOVERY TECHNICIAN Ot Z13.820 ENCOUNTER FOR SCREENING FOR OSTEOPOROSIS 06/02/2018 REGINA BURNHAM [employer] LA[employer] RECOVERY TECHNICIAN Ot Z78.0 ASYMPTOMATIC MENOPAUSAL STATE 06/02/2018 CLARISSA RIVERS WAFER FABRICATION OPERATOR Ot Z12.31 ENCNTR SCREEN MAMMOGRAM FOR MALIGNANT NE 06/02/2018 CLARISSA RIVERS WAFER FABRICATION OPERATOR Ot Z12.31 ENCNTR SCREEN MAMMOGRAM FOR MALIGNANT NE 06/02/2018 NICA ANDERSON [facility], ALI FACP CCDS Ot E78.4 OTHER HYPERLIPIDEMIA 06/02/2018 NICA ANDERSON [facility], ALI FACP CCDS Ot R00.2 PALPITATIONS 06/02/2018 NICA ANDERSON [facility], ALI FACP CCDS Ot R55 SYNCOPE AND COLLAPSE 06/02/2018 CLARISSA RIVERS WAFER FABRICATION OPERATOR Ot Z12.31 ENCNTR SCREEN MAMMOGRAM FOR MALIGNANT NE 06/02/2018 CLARISSA RIVERS WAFER FABRICATION OPERATOR Ot Z12.31 ENCNTR SCREEN MAMMOGRAM FOR MALIGNANT NE 06/05/2018 CLARISSA RIVERS WAFER FABRICATION OPERATOR Ot Z12.31 ENCNTR SCREEN MAMMOGRAM FOR MALIGNANT NE 07/05/2018 CLARISSA RIVERS WAFER FABRICATION OPERATOR Ot Z12.31 ENCNTR SCREEN MAMMOGRAM FOR MALIGNANT NE 03/08/2019 RAFAEL DOOBINNA S Ot 627.1 POSTMENOPAUSAL BLEEDING 03/08/2019 REGINA BURNHAM [employer] LA[employer] AND RECOVERY TECHNICIAN Ot V76.12 OTH SCREEN MAMMO-MALIGN NEOPLASM OF EARNEST 03/08/2019 TRAVIS ANDERSON, BELL Zavlaa Ot 793.80 UNSPEC ABNORMAL MAMMOGRAM 03/08/2019 JOSE ANDERSON, OBINNA Conrad Ot 722.52 LUMB/LUMBOSAC DISC DEGEN 03/08/2019 ROC GATES MD Ot 789.01 ABDOMINAL PAIN, RIGHT UPPER QUADRANT 03/08/2019 ROC GATES MD Ot 789.01 ABDOMINAL PAIN, RIGHT UPPER QUADRANT 03/08/2019 REGINA BURNHAM Ot V76.12 OTH SCREEN MAMMO-MALIGN NEOPLASM OF EARNEST 06/08/2019 BELL ROBLES MD Ot Z12.31 ENCNTR SCREEN MAMMOGRAM FOR MALIGNANT NE 06/25/2019 BELL ROBLES MD Ot Z12.31 ENCNTR SCREEN MAMMOGRAM FOR MALIGNANT NE 06/27/2019 BELL ROBLES MD Ot Z12.31 ENCNTR SCREEN MAMMOGRAM FOR MALIGNANT NE 12/26/2019 ROC GATES MD Ot Z01.81 8 ENCOUNTER FOR OTHER PREPROCEDURAL EXAMIN Procedures There is no data. Results Test Result Range Coronavirus SARS-CoV-2 SO 2018 - 0 08:10 Coronavirus Ab [Units/volume] in Serum Negative Negative Encounters ACCT No. Visit Date/Time Discharge Status Pt. Type Provider Facility Loc./Unit Complaint [id number] 07/15/2017 10:01:55 07/15/2017 23:59:5 9 CLS Outpatient [id number] 04/08/2020 05:45:00 15:39:00 DIS Outpatient ROC GATES MD [facility] PREOP COLONOSCOPY [id number] 01/02/2020 10:15:00 020 23:59:59 CLS Preadmit ROC GATES MD [facility] ENDO SCREENING/HX POLYPS [id number] 12/26/2019 05:52:00 020 10:37:00 DIS Outpatient ROC GATES MD [facility] PREOP COLONOSCOPY [id number] 06/06/2019 10:05:00 019 23:59:59 CLS Outpatient BELL ROBLES MD [facility] RAD SCREENING [id number] 06/02/2018 10:47:00 018 23:59:59 CLS Outpatient CLARISSA RIVERS APRN [facility] RAD SCREENING [id number] 04/14/2018 08:29:00 018 23:59:59 CLS Outpatient CLARISSA RIVERS APRN [facility] RAD SCREENING [id number] 10/11/2017 10:49:00 23:59:59 CLS Outpatient NICA ANDERSON FACC, CECILE FUENTES CC DS [facility] CARD NEAR SYNCOP E R55 [id number] 05/30/2017 13:17:00 23:59:59 CLS Outpatient CLARISSA RIVERS APRN [facility] RAD SCREENING [id number] 06/16/2016 10:21:00 016 14:00:00 DIS Outpatient ROC GATES MD [facility] SDC SCREENING;HX POLYPS; EP IGASTRIC PAIN [id number] 06/15/2016 05:53:00 016 10:25:00 DIS Outpatient ROC GATES MD [facility] PREOP SCREENING;HX POLYPS; EP IGASTRIC PAIN [id number] 03/25/2016 10:08:00 016 23:59:59 CLS Outpatient REGINA BURNHAM [facility] RAD SCREENING,EARLY MENOPAUSE [id number] 03/25/2016 10:03:00 016 23:59:59 CLS Outpatient CLARISSA RIVERS APRN [facility] RAD SCREENING [id number] 03/19/2016 07:33:00 016 08:29:00 DIS Outpatient SCARLETT SWANSON MD [facility] CARD DISC DISORDER [id number] 08/22/2015 10:58:00 015 12:04:00 DIS Outpatient SCARLETT SWANSON MD [facility] CARD DISC DISORDER W/RADICUL OPATHY [id number] 03/12/2015 14:49:00 015 23:59:59 CLS Outpatient REGINA BURNHAM [facility] RAD SCREENING [id number] 01/16/2015 09:18:00 015 23:59:59 CLS Outpatient ROC GATES MD [facility] CARD ABD PAIN [id number] 01/14/2015 09:30:00 23:59:59 CLS Outpatient ROC GATES MD [facility] RAD RUQ PAIN [id number] 07/01/2014 08:20:00 014 23:59:59 CLS Outpatient OBINNA GARCIA MD [facility] RAD R RADICULAPATHY [id number] 02/26/2014 08:02:00 014 23:59:59 CLS Outpatient BELL ROBLES MD [facility] RAD FOLLOW UP [id number] 02/11/2014 10:36:00 014 23:59:59 CLS Outpatient REGINA BURNHAM [facility] RAD SCREENING [id number] 12/12/2013 10:28:00 014 23:59:59 CLS Outpatient OBINNA HALL DO [facility] RAD POST MENOPAUSAL BLEEDI NG [id number] 09/07/2013 08:33:00 013 23:59:59 CLS Outpatient NICA ANDERSON FACC, CECILE FUENTES CC DS [facility] CARD HEART MURMU R,DIZZINESS [id number] 02/09/2013 08:26:00 013 23:59:59 CLS Outpatient ROC GATES MD [facility] RAD ABD PAIN [id number] 02/09/2013 08:32:00 013 12:30:00 DIS Outpatient ROC GATES MD [facility] SDC ABDOMINAL PAIN [id number] 06/02/2015 11:00:00 Document Registration [id number] 06/02/2015 11:00:00 Document Registration [id number] 02/07/2013 08:17:00 Document Registration [id number] 05/24/2011 15:12:00 Document Registration [id number] 05/07/2011 09:56:00 Document Registration [id number] 03/26/2010 13:43:00 Document Registration
[2020-04-11] MEDS ORDERED: MIDAZOLAM 2 MG/2 ML (VERSED) VIAL ONE (13:18)
[2020-04-11] MEDS ORDERED: proPOfol 200 MG/20 ML (DIPRIVAN) VIAL IV ONE (13:18)
[2020-04-11] MEDS ORDERED: LIDOCAINE JELLY 2% 6 ML SYRINGE ONE (13:23)
--- NOTE | 2020-04-11 13:28 | Progress Note-Pre Operative ---
Pre-Operative Progress Note H&P Reviewed The H&P was reviewed, patient examined and no changes noted. Date Seen by Provider: Apr 11, 2020 Time Seen by Provider: 12:00 Date H&P Reviewed: Apr 11, 2020 Time H&P Reviewed: 12:00 Pre-Operative Diagnosis: screening, family hx ROC GATES MD Apr 11, 2020 13:28
--- NOTE | 2020-04-11 13:29 | Discharge Inst-Surgical ---
D/C Lap Instructions-KODY Follow Up Activity as tolerated High Fiber Diet 25g or more per day Avoid Alcohol, Caffeine, Spicy [place] and Acid foods. Drink 64 fluid oz or more of fluids per day. Symptoms to Report: Fever over 101 degree F, Nausea/Vomiting If any problems/questions: Contact your physician or go to Emergency Room ROC GATES MD Apr 11, 2020 13:29
[2020-04-11] MEDS ORDERED: ONDANSETRON 4 MG/2 ML (SDV) Z0FRAN IVP PRN (13:30)
[2020-04-11] MEDS ORDERED: morphine INJ 10 MG/ML 1ML (SYR OR VIAL) IVP PRN ×2 (13:30)
[2020-04-11] MEDS ORDERED: HYDROcodone/APAP 5 MG/325 MG (LORTAB) TAB PO PRN (13:30)
[2020-04-11] MEDS ORDERED: ACETAMINOPHEN 325 MG TABLET PO PRN (13:30)
--- NOTE | 2020-04-11 15:07 | Anesthesia-General Post-Op ---
MAC Patient Condition Mental Status/LOC: Same as Preop Cardiovascular: Satisfactory Nausea/Vomiting: Absent Respiratory: Satisfactory Pain: Controlled Complications: Absent Post Op Complications Complications None Follow Up Care/Instructions Patient Instructions None needed. Anesthesiology Discharge Order Discharge Order Patient was seen after the procedure and she was doing well, no complaints, stable vital signs, no apparent adverse anesthesia problems. PAULO CINTRON DO Apr 11, 2020 15:07
--- NOTE | 2020-04-11 21:08 | OPERATIVE REPORT ---
DATE OF SERVICE: 04/11/2020 ATTENDING PRIMARY CARE PHYSICIAN: Heidi Christy MD PREOPERATIVE DIAGNOSIS: Screening colonoscopy with history of colon polyps. POSTOPERATIVE DIAGNOSES: Chronic stage II external and internal hemorrhoids, moderate sigmoid diverticulosis. Remainder of the colon and rectum were normal. PROCEDURE: Colonoscopy. SURGEON: Roc Gates MD. ANESTHESIA: Monitored anesthesia care. ESTIMATED BLOOD LOSS: Minimal. FINDINGS: Chronic stage II external and internal hemorrhoids, moderate sigmoid diverticulosis. Remainder of the colon and rectum were normal. DISPOSITION: The patient tolerated the procedure well. INDICATIONS: The patient is a 69-year-old female who we have seen before in the past. We had done a colonoscopy on her approximately 7 years ago where she was found to have a polyp, which was biopsied and found to be benign. She states she is otherwise doing well, does not report any major issues with diarrhea nor constipation as well as no red blood per rectum nor any dark tarry stools. She also does not report any family history of colon cancer. DESCRIPTION OF PROCEDURE: The patient was brought to the endoscopy suite, laid in the left lateral decubitus position with head slightly elevated. After adequate IV pain and sedative medications and monitored anesthesia care, a digital rectal examination was performed, which revealed chronic stage II external and internal hemorrhoids, not actively edematous nor inflamed and no bleeding. Normal sphincter tone was felt and there were no palpable masses. The endoscope was then intubated into the anus and rectum gently insufflated. The endoscope was then advanced through the valves of Zhou of the rectum with no polyps or any neoplasms identified. Through the sigmoid colon, a moderate sigmoid diverticulosis identified. There were no mucosal inflammatory changes to indicate any active diverticulitis. Endoscope was then advanced to the remainder of the descending, transverse and ascending colon to the cecum. These segments were normal. There were no polyps or any neoplasms identified throughout the colon or rectum. The endoscope was then slowly withdrawn while taking a second look and suctioning of residual air with no additional findings. The patient tolerated the procedure well. We will recommend a high fiber diet with at least 25 grams of fiber daily as well as significant amounts of water to promote soft stools on a daily basis. She does not have any family history of colon cancer and she may wait 10 years for her next colonoscopy if she is asymptomatic. Job ID: [id number] DocumentID: [id number] Dictated Date: 04/11/2020 14:35:54 Flue Blower Date: 04/11/2020 21:07:50 Dictated By: ROC GATES MD
== END 2020-04-11 14:38 | disposition home or self-care (01) ==
LOC: ENDO 12:39
PROVIDERS: ATTEND Surgery
DX: Z12.11 Encounter for screening for malignant neoplasm of colon (principal); K64.1 Second degree hemorrhoids; K57.30 Diverticulosis of large intestine without perforation or abscess without bleeding; K64.8 Other hemorrhoids; E03.9 Hypothyroidism, unspecified; I48.91 Unspecified atrial fibrillation; E78.5 Hyperlipidemia, unspecified; Z79.01 Long term (current) use of anticoagulants; Z79.899 Other long term (current) drug therapy; Z86.010 Personal history of colon polyps; Z80.1 Family history of malignant neoplasm of trachea, bronchus and lung; Z82.49 Family history of ischemic heart disease and other diseases of the circulatory system

== ENCOUNTER → 2020-07-15 | Outpatient (CLI) | payer MEDICARE ==
[~2020-07-15] MED LIST changes: -NS IV 500 ML 0 ML ONE
--- NOTE | 2020-07-15 13:41 | Diagnostic Imaging Report ---
INDICATION: Postmenopausal screening for osteoporosis COMPARISON: 03/25/2016 FINDINGS: AP Spine L1-L4: [BMD (g/cm2): 1.186] [T-Score: -0.1] [Z-Score: 1.3] [BMD Previous: 1.240] [BMD % Change: -4.4] LT Hip Neck: [BMD (g/cm2): 0.882] [T-Score: -1.1] [Z-Score: 0.4] LT Hip Total: [BMD (g/cm2):0.953] [T-Score:-0.4] [Z-Score: 0.8] [BMD Previous: 0.945] [BMD % Change: 0.8] RT Hip Neck: [BMD (g/cm2):0.836] [T-Score:-1.5] [Z-Score:0.1] RT Hip Total: [BMD (g/cm2):0.935] [T-score:-0.6] [Z-Score:0.7] [BMD Previous:0.929] [BMD % Change:0.6] *Indicates significant change from prior examination based on 95% confidence level. World Health Organization criteria for BMD interpretation classify patients as Normal (T-score at or above -1.0), Osteopenic (T-score between -1.0 and -2.5) or Osteoporotic (T-score at or below -2.5). LIMITATIONS AND MODIFICATION: None. FRACTURE RISK (FRAX SCORE): The ten year probability of (%): Major Osteoporotic Fracture: [NA] Hip Fracture: [NA] IMPRESSION: 1. Normal bone mineral density. 2. No significant change in bone mineral density since prior examination. 3. See below National Osteoporosis Foundation guidelines on when to potentially initiate pharmacologic therapy. Based on the National Osteoporosis Foundation Guidelines, pharmacologic treatment should be initiated in any of the following, unless clinical conditions suggest otherwise: * Any patient with prior fragility fracture of the hip or vertebrae. A spine fracture indicates 5X risk for subsequent spine fracture and 2X risk for subsequent hip fracture. * Osteoporosis (T-score <-2.5). * Postmenopausal women and men age 50 and older with low bone mass/osteopenia (T-score between -1.0 and -2.5) by DXA and 10-year major osteoporotic fracture greater than 20% or a 10-year probability of hip fracture greater than 3%. These fracture risks are supplied above in the FRAX score, if applicable. * Clinician judgement and/or patient preferences may indicate treatment for people with 10-year fracture probabilities above or below these levels. Dictated by: Dictated on workstation # [id number]
--- NOTE | 2020-07-15 16:29 | Diagnostic Imaging Report ---
EXAMINATION: Digital mammogram bilateral screening with CAD. INDICATION: Screening. COMPARISON: This study was compared to the prior exams of 06/06/2019, 06/02/2018, 05/30/2017, and 03/25/2016. PERSONAL HISTORY: At this time, there are no current complaints. FINDINGS: There are bilateral breast implants in place. The implants appear similar to the prior exam. There is no sign of an extracapsular rupture of either implant. The loop recorder device overlying the pectoralis muscle on the left seen previously is also again visualized and seems stable. The fibroglandular tissue overlying the implants is heterogeneously dense. This does limit the sensitivity of this exam. Overall, there does not appear to have been any significant change. There is no primary or secondary sign of malignancy noted. IMPRESSION: 1. There is no evidence for malignancy. 2. The implants appear stable. There is no sign of an extracapsular rupture of either implant. 3. The loop recorder device overlying the left pectoralis muscle seen previously is also again evident and unchanged in position. ACR BI-RADS Category 1: Negative. Result letter will be mailed to the patient. Note: At least 10% of breast cancer is not imaged by mammography. Dictated by: Dictated on workstation # [id number]
== END ==
LOC: RAD 13:30
PROVIDERS: ATTEND Family Medicine
DX: Z12.31 Encounter for screening mammogram for malignant neoplasm of breast (principal); Z13.820 Encounter for screening for osteoporosis; Z78.0 Asymptomatic menopausal state; Z98.82 Breast implant status
CPT/HCPCS: 77063; 77067; 77080

== ENCOUNTER → 2020-08-05 | Outpatient (CLI) | payer MEDICARE ==
[~2020-08-05] VITALS: Ht 172 cm; Wt 72.0 kg
[~2020-08-05] MED LIST changes: +CATHETER FLUSH 10 ML SYR IV PRN; +REGADENOSON 0.4 MG/5 ML SYR (LEXISCAN) IV ONE
[2020-08-05 08:58] VITALS: BP 136/91
--- NOTE | 2020-08-05 17:31 | STRESS TEST ---
DATE OF SERVICE: 08/05/2020 RESTING AND POST REGADENOSON TECHNETIUM-99M TETROFOSMIN SPECT CT IMAGING ORDERING PHYSICIAN: Dr. Franklin. PRIMARY PHYSICIAN: Dr. Christy. CLINICAL DIAGNOSIS: Hypertension, supraventricular tachycardia. Baseline images were carried out after injection of 10.27 mCi of technetium-99m Tetrofosmin. This was followed by 0.4 mg Regadenoson and 33 mCi of technetium-99m Tetrofosmin for stress imaging. The electrocardiogram showed sinus rhythm with occasional isolated premature ventricular contractions. The electrocardiogram did not change significantly with Regadenoson infusion. The patient reported flushing and some abdominal cramping and some discomfort in the legs following Regadenoson infusion, which resolved in a few minutes. Review of images at rest and following stress does not indicate any distinct perfusion defects consistent with significant myocardial ischemia or infarction. Gated images show normal global left ventricular systolic function with normal regional wall motion. Left ventricular ejection fraction is calculated to be 73%. Left ventricular end diastolic volume is 55 mL. TID is absent (1.06). CONCLUSIONS: 1. No evidence of any significant myocardial ischemia or infarction on this study. 2. Normal regional wall motion. 3. Normal global left ventricular systolic function with a calculated ejection fraction of 73%. Job ID: [id number] DocumentID: [id number] Dictated Date: 08/05/2020 15:53:31 [employer] Supervisor Date: 08/05/2020 17:30:53 Dictated By: CECILE FRANKLIN MD, MA, FACP, FACC,
== END ==
LOC: CARD 08:15
PROVIDERS: ATTEND Internal Medicine Cardiovascular Disease
DX: I47.1 Supraventricular tachycardia (principal); I10 Essential (primary) hypertension
CPT/HCPCS: 78452; 93017; A9502

== ENCOUNTER → 2021-07-17 | Outpatient (CLI) | payer MEDICARE ==
[~2021-07-17] MED LIST changes: -CATHETER FLUSH 10 ML SYR IV PRN; -REGADENOSON 0.4 MG/5 ML SYR (LEXISCAN) IV ONE
--- NOTE | 2021-07-17 14:01 | Diagnostic Imaging Report ---
INDICATION: Routine screening. COMPARISON is made with prior mammograms from 07/15/2020 and 06/06/2019. 2-D and 3-D bilateral screening mammography was performed with CAD. Bilateral breast implants are again noted. There appear to be calcifications along the implant shells bilaterally, similar to prior exam. No definite extracapsular rupture is seen. Breast parenchymal is heterogeneously dense, limiting the sensitivity of mammography. No mass or malignant-appearing microcalcifications are seen. Axillae are unremarkable apart from a cardiac monitoring device overlying the left axilla. IMPRESSION: BI-RADS Category 2. No mammographic features suspicious for malignancy are identified. ACR BI-RADS Category 2: Benign findings. Result letter will be mailed to the patient. Note: At least 10% of breast cancer is not imaged by mammography. Dictated by: Dictated on workstation # [id number]
== END ==
LOC: RAD 11:09
PROVIDERS: ATTEND Family Medicine
DX: Z12.31 Encounter for screening mammogram for malignant neoplasm of breast (principal)
CPT/HCPCS: 77063; 77067

== ENCOUNTER → 2021-12-25 | Outpatient (CLI) | payer MEDICARE ==
[2021-12-25 10:48] LABS: BASOPHILS # (AUTO) 0.1 10^3/uL (0.0-0.1); BASOPHILS % (AUTO) 1 % (0-10); EOSINOPHILS # (AUTO) 0.2 10^3/uL (0.0-0.3); EOSINOPHILS % (AUTO) 2 % (0-10); HEMATOCRIT 46 % (35-52); HEMOGLOBIN 14.8 g/dL (11.5-16.0); LYMPHOCYTES # (AUTO) 1.9 10^3/uL (1.0-4.0); LYMPHOCYTES % (AUTO) 28 % (12-44); MEAN CORPUSCULAR HEMOGLOBIN 28 pg (25-34); MEAN CORPUSCULAR HGB CONC 32 g/dL (32-36); MEAN CORPUSCULAR VOLUME 88 fL (80-99); MEAN PLATELET VOLUME 9.9 fL (9.0-12.2); MONOCYTES # (AUTO) 0.5 10^3/uL (0.0-1.0); MONOCYTES % (AUTO) 7 % (0-12); NEUTROPHILS # (AUTO) 4.1 10^3/uL (1.8-7.8); NEUTROPHILS % (AUTO) 61 % (42-75); PLATELET COUNT 277 10^3/uL (130-400); WHITE BLOOD COUNT 6.7 10^3/uL (4.3-11.0)
[2021-12-25 11:13] LABS: ALBUMIN 4.3 GM/DL (3.2-4.5); BILIRUBIN,TOTAL 0.6 MG/DL (0.1-1.0); CALCIUM 9.5 MG/DL (8.5-10.1); CREATININE SERUM 0.93 MG/DL (0.60-1.30); POTASSIUM 4.4 MMOL/L (3.6-5.0); TOTAL PROTEIN 7.4 GM/DL (6.4-8.2)
[2021-12-25 11:41] LABS: ERYTHROCYTE SEDIMENTATION RATE 2 MM/HR (0-30)
== END ==
LOC: CARD 10:00
PROVIDERS: ATTEND Internal Medicine Cardiovascular Disease
DX: R06.09 Other forms of dyspnea (principal)
CPT/HCPCS: 36415; 80053; 84443; 85025; 85652; 93306

== ENCOUNTER → 2022-01-08 | Outpatient (CLI) | payer MEDICARE ==
[~2022-01-08] MED LIST changes: +CATHETER FLUSH 10 ML SYR IVP PRN; +REGADENOSON 0.4 MG/5 ML SYR (LEXISCAN) IV ONE
[2022-01-08 09:21] VITALS: BP 126/85
--- NOTE | 2022-01-08 17:19 | STRESS TEST ---
DATE OF SERVICE: 01/08/2022 RESTING AND POST REGADENOSON TECHNETIUM-99M TETROFOSMIN SPECT CT IMAGING ORDERING PHYSICIAN: Chuy Franklin MD, MARLEY, FACP, FACC PRIMARY PHYSICIAN: Heidi Christy MD CLINICAL DIAGNOSIS: Shortness of breath. Baseline images were carried out after injection of 10.34 mCi of technetium-99m Tetrofosmin. This was followed by 0.4 mg regadenoson and 29.2 mCi of technetium-99m Tetrofosmin for stress imaging. The electrocardiogram showed sinus rhythm at baseline and it did not change significantly with the regadenoson infusion. She had transient flushing of the face and some abdominal discomfort following regadenoson infusion, which resolved in a few minutes. Review of images at rest and following stress does not indicate any significant perfusion defects consistent with myocardial ischemia or infarction. Gated images show normal to hyperdynamic left ventricular systolic function without regional wall motion abnormality and with a calculated ejection fraction of 80%. Left ventricular end-diastolic volume is 47 mL. TID is absent (0.92). CONCLUSIONS: 1. No evidence of any significant myocardial ischemia or infarction on this study. 2. Normal regional wall motion. 3. Normal to hyperdynamic left ventricular systolic function with a calculated ejection fraction of 80%. Job ID: [id number] DocumentID: [id number] Dictated Date: 01/08/2022 14:35:53 [employer] Application Developer Date: 01/08/2022 17:18:54 Dictated By: CHUY FRANKLIN MD, MARLEY, FACP, FACC,
== END ==
LOC: CARD 08:15
PROVIDERS: ATTEND Internal Medicine Cardiovascular Disease
DX: R06.02 Shortness of breath (principal)
CPT/HCPCS: 78452; 93017; A9502

== ENCOUNTER → 2022-03-11 | Outpatient (CLI) | payer MEDICARE ==
[~2022-03-11] MED LIST changes: -CATHETER FLUSH 10 ML SYR IVP PRN; -REGADENOSON 0.4 MG/5 ML SYR (LEXISCAN) IV ONE
--- NOTE | 2022-03-11 16:15 | Diagnostic Imaging Report ---
INDICATION: Left breast pain. CORRELATION is made with prior mammogram 07/17/2021. Unilateral left 2-D and 3-D diagnostic mammography was performed. This included conventional CC and MLO views as well as implant displaced CC and MLO views. Left breast implant is in place. There appears to be calcifications along the implant shell. No definite evidence of extracapsular rupture is seen. Left breast does show some scattered fibroglandular densities. No discrete mass or malignant-appearing microcalcifications are seen. Left axilla is unremarkable. IMPRESSION: BI-RADS Category 0 No mammographic features suspicious for malignancy are identified. Even so, sonographic interrogation of the areas of pain in the left breast is recommended and will be performed today. ACR BI-RADS Category 0: Incomplete. (Needs additional imaging evaluation). Result letter will be mailed to the patient. Note: At least 10% of breast cancer is not imaged by mammography. Dictated by: Dictated on workstation # [id number]
--- NOTE | 2022-03-11 16:22 | Diagnostic Imaging Report ---
INDICATION: Left breast pain. CORRELATION is made with the diagnostic mammogram earlier same day. Sonographic interrogation of the entire left breast was performed. No sonographic abnormality is seen. No solid or cystic mass is detected. IMPRESSION: BI-RADS Category 1 No sonographic abnormality is detected. ACR BI-RADS Category 1: Negative. Result letter will be mailed to the patient. Note: At least 10% of breast cancer is not imaged by mammography. Dictated by: Dictated on workstation # [id number]
== END ==
LOC: RAD 12:48
PROVIDERS: ATTEND Nurse Practitioner Family
DX: N64.4 Mastodynia (principal); Z98.82 Breast implant status
CPT/HCPCS: 76642; 77065; G0279

== ENCOUNTER → 2022-08-03 | Outpatient (CLI) | payer MEDICARE ==
--- NOTE | 2022-08-03 14:57 | Diagnostic Imaging Report ---
INDICATION: Routine screening. COMPARISON: 07/17/2021 and 07/15/2020. TECHNIQUE: 2D and 3D bilateral screening mammography was performed with CAD. FINDINGS: Bilateral breast implants are again noted. The implant contours are stable. There are some calcifications along the implant shells. No definite evidence of extracapsular rupture is identified. Both breasts are heterogeneously dense, limiting the sensitivity of mammography. No mass or malignant-appearing microcalcifications are identified. The axillae are unremarkable apart from a loop recorder overlying the left axilla. IMPRESSION: No mammographic features suspicious for malignancy are identified. ACR BI-RADS Category 2: Benign findings. Result letter will be mailed to the patient. Note: At least 10% of breast cancer is not imaged by mammography. Dictated by: Dictated on workstation # [id number]
== END ==
LOC: RAD 12:48
PROVIDERS: ATTEND Family Medicine
DX: Z12.31 Encounter for screening mammogram for malignant neoplasm of breast (principal)
CPT/HCPCS: 77063; 77067

== ENCOUNTER → 2023-08-05 | Outpatient (CLI) | payer MEDICARE ==
--- NOTE | 2023-08-05 12:42 | Diagnostic Imaging Report ---
INDICATION: Routine screening. Comparison is made with prior mammogram from 08/03/2022 and 07/17/2021. 2-D and 3-D bilateral screening mammography was performed with CAD. Bilateral breast implants again noted. Implant contours are smooth without evidence of extracapsular rupture. Both breasts are heterogeneously dense, limiting the sensitivity of mammography. The parenchymal pattern remains stable. No mass or malignant-appearing microcalcifications are seen. Axillae are unremarkable apart from a loop recorder overlying the left axilla. IMPRESSION: No mammographic features suspicious for malignancy are identified. ACR BI-RADS Category 2: Benign findings. Result letter will be mailed to the patient. Note: At least 10% of breast cancer is not imaged by mammography. BI-RADS Category 2 Dictated by: Dictated on workstation # [id number]
== END ==
LOC: RAD 10:27
PROVIDERS: ATTEND Family Medicine
DX: Z12.31 Encounter for screening mammogram for malignant neoplasm of breast (principal)
CPT/HCPCS: 77063; 77067